=== PATIENT | male | born 1945 | race Hispanic/Latino ===

== ENCOUNTER 2018-05-05 06:29 | Emergency (ER) | payer MEDICARE ==
[~2018-05-05] VITALS: Ht 157.5 cm; Wt 60.8 kg
[~2018-05-05 06:29] MED LIST: ASA325 PO; ASPIRIN325 MG PO; LIPITOR20 MG PO; LIPITOR40 MG PO; LOTREL 5-20 MG1 EACH PO; LOTREL PO; NORCO 10-325 T1 EACH PO; NORCO 7.5-3251 EACH PO; PEPCID20 MG PO; PLAVIX PO; PLAVIX75 MG PO; TOPROL PO; TOPROL XL100 MG PO; XANAX PO; XANAX0.5 MG PO
--- OUTSIDE RECORDS SUMMARY | 2018-05-05 06:35 | XMS REPORT | Summary of Care ---
Author Author [facility] Organization [facility] Address Unknown Phone Unavailable Encounter KIARA Jiménez(ROCIO) [id number] Date(s): 01/05/15 - 01/06/15 [facility] [address] [place] [address]- Discharge Disposition: Home Attending Physician: Lavell Veras MD Admitting Physician: Lavell Veras MD Vital Signs 1 2 3 Most recent to oldest [Reference Range]: 157.48 cm (01/05/15 2:04 PM) Height 97.6 DegF (01/06/15 12:48 PM) 97.5 DegF (01/06/15 8:20 AM) 97.6 DegF (01/06/15 4:00 AM) Temperature Oral [96.4-99.1 DegF] 152/75 mmHg *HI* (01/06/15 12:48 PM) 154/76 mmHg *HI* (01/06/15 8:20 AM) 152/68 mmHg *HI* (01/06/15 4:00 AM) Blood Pressure [90-140/60-90 mmHg] 18 BRMIN (01/06/15 12:48 PM) 16 BRMIN (01/06/15 8:20 AM) 16 BRMIN (01/06/15 4:00 AM) Respiratory Rate [14-20 BRMIN] 51 bpm *LOW* (01/06/15 12:48 PM) 52 bpm *LOW* (01/06/15 8:20 AM) 53 bpm *LOW* (01/06/15 4:00 AM) Peripheral Pulse Rate [60-100 bpm] 60.455 kg (01/05/15 2:04 PM) Weight 24.38 m2 (01/05/15 2:04 PM) Body Mass Index Problem List Condition Effective Dates Status Health Status Informant Acid Active reflux(Confirmed) Acute Active abscess(Confirmed) CABG - Coronary Active artery bypass graft(Confirmed) CAD - Coronary Active artery disease(Confirmed) CAD - Coronary Resolved artery disease(Confirmed) Chest Active pain(Confirmed) Cholesterol(Confirme Resolved d) GERD - Resolved Gastro-esophageal reflux disease(Confirmed) HLD - Active Hyperlipidemia(Confi rmed) HTN - Active Hypertension(Confirm ed) HTN - Resolved Hypertension(Confirm ed) Hyperlipidemia(Confi Active rmed) Hypertension(Confirm Active ed) Hypertension(Confirm Resolved ed) OR (myocardial Resolved infarction)(Confirme d) Allergies, Adverse Reactions, Alerts Substance Reaction Severity Status NKDA Active Medications acetaminophen 650 mg, 2 tab, Route: PO, Drug form: TAB, Q4H, Dosing Weight 60.455, kg, PRN Jeanne n 1-3/Temp > 100.4 F, Start date: 01/05/15 18:50:00, Duration: 30 day, Stop date: 02/04/15 18:49:00 Notes: Do not exceed 4 gm/day. (Same as: Tylenol) Start Date: 01/05/15 Stop Date: 01/06/15 Status: Discontinued acetaminophen-hydrocodone 325 mg-5 mg oral tablet 1 tab, Route: PO, Drug Form: TAB, Dosing Weight 60.455, kg, Q4H, PRN Pain Score 4-6, Start date: 01/05/15 18:50:00, Duration: 30 day, Stop date: 02/04/15 18:49: 00 Notes: (Same as: [place] 325/5) Do not exceed 4gm/day of acetaminophen. Start Date: 01/05/15 Stop Date: 01/06/15 Status: Discontinued ALPRAZOLam 1 mg oral tablet, disintegrating 1 mg=1 tab, PO, TID, PRN Anxiety, X 14 day, # 42 tab, 0 Refill(s) Start Date: 01/06/15 Stop Date: 01/20/15 Status: Ordered amLODIPine-benazepril 5 mg-40 mg oral capsule 1 cap, PO, Daily, # 30 cap, 0 Refill(s) Start Date: 01/06/15 Status: Ordered amLODIPine-benazepril 5 mg-40 mg oral capsule 1 cap, Route: PO, Drug Form: CAP, Dosing Weight 60.455, kg, Daily, Start date: 1 9:00:00, Duration: 30 day, Stop date: 02/04/15 9:00:00 Start Date: 01/06/15 Stop Date: 01/06/15 Status: Deleted aspirin 81 mg tablet, enteric coated 81 mg, 1 tab, Route: PO, Drug form: ECTAB, Daily, Dosing Weight 60.455, kg, Star t date: 01/06/15 9:00:00, Duration: 30 day, Stop date: 02/04/15 9:00:00 Notes: Do not crush or chew.(Same As: Ecotrin) Start Date: 01/06/15 Stop Date: 01/06/15 Status: Discontinued aspirin 81 mg tablet, enteric coated 81 mg, 1 tab, Route: PO, Drug form: ECTAB, ONCE, Dosing Weight 60.455, kg, Prior ity: STAT, Start date: 01/05/15 16:51:00, Stop date: 01/05/15 16:51:00 Notes: Do not crush or chew.(Same As: Ecotrin) Start Date: 01/05/15 Stop Date: 01/05/15 Status: Completed atorvastatin 40 mg, 1 tab, Route: PO, Drug form: TAB, Bedtime, Dosing Weight 60.455, kg, Star t date: 01/06/15 21:00:00, Duration: 30 day, Stop date: 02/04/15 21:00:00 Notes: (Same as: Lipitor) Start Date: 01/06/15 Stop Date: 01/06/15 Status: Canceled atorvastatin 20 mg, PO, Bedtime, 0 Refill(s) Start Date: 01/06/15 Stop Date: 01/06/15 Status: Discontinued atorvastatin 40 mg oral tablet 40 mg=1 tab, PO, Bedtime, # 30 tab, 0 Refill(s) Start Date: 01/06/15 Stop Date: 02/05/15 Status: Ordered atropine 0.5 mg, 5 mL, Route: IVP, Drug form: INJ, PRN, PRN Bradycardia, Start date: 12/16 05/01 19:07:00, Duration: 30 day, Stop date: 02/04/15 18:06:00 Start Date: 01/05/15 Stop Date: 01/06/15 Status: Discontinued docusate 100 mg, 1 cap, Route: PO, Drug form: CAP, BID, Dosing Weight 60.455, kg, PRN Con stipation, Start date: 01/05/15 18:50:00, Duration: 30 day, Stop date: 02/04/15 18:49:00 Notes: (Same as: Colace) (Do Not Crush) Start Date: 01/05/15 Stop Date: 01/06/15 Status: Discontinued enoxaparin 40 mg, 0.4 mL, Route: SUB-Q, Drug form: INJ, [id number], Dosing Weight 60.455, kg, Start date: 01/05/15 17:00:00, Duration: 30 day, Stop date: 02/03/15 17:00:00 Notes: (Same as: Lovenox) Start Date: 01/05/15 Stop Date: 01/06/15 Status: Discontinued ergocalciferol 50,000 IntlUnit, 1 cap, Route: PO, Drug form: CAP, Daily, Dosing Weight 60.455, kg, Start date: 01/06/15 9:00:00, Duration: 3 day, Stop date: 01/08/15 9:00:00 Notes: (Same as: Vitamin D) "Do Not Crush" Start Date: 01/06/15 Stop Date: 01/06/15 Status: Discontinued hydrALAZINE 10 mg, 0.5 mL, Route: IV, Drug form: INJ, Q4H, Dosing Weight 60.455, kg, PRN Hyp ertension, Start date: 01/05/15 23:10:00, Duration: 30 day, Stop date: 02/04/15 23:09:00 Notes: (Same as: Apresoline)Push over 5 minutes Start Date: 01/05/15 Stop Date: 01/06/15 Status: Discontinued metoprolol 5 mg/5 ml INJ 5 mg, 5 mL, Route: IV, Drug form: INJ, Q2H, Dosing Weight 60.455, kg, PRN Tachyc ardia, Start date: 01/05/15 23:10:00, Duration: 30 day, Stop date: 02/04/15 23:0 9:00 Notes: (Same as: Lopressor)Push over 2 minutes Start Date: 01/05/15 Stop Date: 01/06/15 Status: Discontinued morphine Sulfate 2 mg, 1 mL, Route: IVP, Drug form: INJ, Q4H, Dosing Weight 60.455, kg, PRN Pain Score 7-10, Start date: 01/05/15 18:50:00, Duration: 30 day, Stop date: 02/04/15 18:49:00 Notes: (Same as:MORPhine Sulfate) Start Date: 01/05/15 Stop Date: 01/06/15 Status: Discontinued nitroglycerin 0.4 mg sublingual tablet 0.4 mg, 1 tab, Route: SL, Drug form: TAB, Q5Min, PRN Chest Pain, Start date: 19:07:00, Duration: 30 day, Stop date: 02/04/15 18:06:00 Notes: (Same as:Nitroquick, Nitrostat)"Do Not Crush" Sublingual tablet Start Date: 01/05/15 Stop Date: 01/06/15 Status: Discontinued Nitrostat 0.4 mg sublingual tablet 0.4 mg, 1 tab, Route: SL, Drug form: TAB, Q5Min, Dosing Weight 60.455, kg, PRN C hest Pain, Start date: 01/05/15 23:10:00, Duration: 3 doses or times, Stop date: Limited # of times Notes: (Same as:Nitroquick, Nitrostat)"Do Not Crush" Sublingual tablet Start Date: 01/05/15 Stop Date: 01/06/15 Status: Discontinued Norvasc 5 mg, 1 tab, Route: PO, Drug form: TAB, Daily, Start date: 01/06/15 9:00:00, Dur ation: 30 day, Stop date: 02/04/15 9:00:00 Notes: (Same as: Norvasc) Start Date: 01/06/15 Stop Date: 01/06/15 Status: Discontinued ondansetron 4 mg, 2 mL, Route: IVP, Drug form: INJ, Q6H, Dosing Weight 60.455, kg, PRN Nause a & Vomiting, Start date: 01/05/15 18:50:00, Duration: 30 day, Stop date: 02/04/15 18:49:00 Notes: (Same as: [place]) MEDICATION WASTE Product Size: 4 mgProduct Was janay: ___ mg Start Date: 01/05/15 Stop Date: 01/06/15 Status: Discontinued Prinivil 40 mg, 2 tab, Route: PO, Drug form: TAB, Daily, Start date: 01/06/15 9:00:00, Du ration: 30 day, Stop date: 02/04/15 9:00:00 Notes: (Same as: Prinivil, Zestril) Start Date: 01/06/15 Stop Date: 01/06/15 Status: Discontinued Protonix 40 mg, 1 tab, Route: PO, Drug form: ECTAB, Before Dinner, Dosing Weight 60.455, kg, Start date: 01/06/15 16:30:00, Duration: 30 day, Stop date: 02/04/15 16:30:0 0 Notes: Tablet should not be chewed or crushed.(Same as: Protonix) Start Date: 01/06/15 Stop Date: 01/06/15 Status: Discontinued Saline Flush 0.9% 10 mL, Route: IVP, Drug Form: INJ, Dosing Weight 60.455, kg, PRN, PRN Line Flush , Start date: 01/05/15 14:13:00, Duration: 30 day, Stop date: 02/04/15 13:12:00 Notes: (Same as: BD Posiflush) Start Date: 01/05/15 Stop Date: 01/05/15 Status: Discontinued Toprol-XL 100 mg oral tablet, extended release 100 mg, 1 tab, Route: PO, Drug form: ERTAB, Daily, Start date: 01/06/15 9:00:00, Duration: 30 day, Stop date: 02/04/15 9:00:00 Notes: (Same as: Toprol XL) May split tab, but do not crush. Start Date: 01/06/15 Stop Date: 01/06/15 Status: Discontinued Xanax 0.5 mg oral tablet 0.5 mg, 1 tab, Route: PO, Drug form: TAB, TID, Dosing Weight 60.455, kg, PRN Anx iety, Start date: 01/06/15 8:09:00, Duration: 30 day, Stop date: 02/05/15 8:08:0 0 Notes: With food or milk(Same as: Xanax) Start Date: 01/06/15 Stop Date: 01/06/15 Status: Discontinued Results ELECTROLYTES Most recent to 1 2 3 4 oldest [Reference Range]: Sodium Lvl [135-145 140 mEq/L 139 mEq/L mEq/L] (01/06/15 4:20 AM) (01/05/15 2:17 PM) Potassium Lvl 4.0 mEq/L 3.8 mEq/L [3.5-5.1 mEq/L] (01/06/15 4:20 AM) (01/05/15 2:17 PM) Chloride Lvl [95-109 104 mEq/L 102 mEq/L mEq/L] (01/06/15 4:20 AM) (01/05/15 2:17 PM) CO2 [24-32 mEq/L] 30 mEq/L 31 mEq/L (01/06/15 4:20 AM) (01/05/15 2:17 PM) AGAP [10.0-20.0 10.0 mEq/L 9.8 mEq/L mEq/L] (01/06/15 4:20 AM) *LOW* (01/05/15 2: PM) CHEM PANEL Most recent to 1 2 3 4 oldest [Reference Range]: Creatinine Lvl 1.0 mg/dL 1.1 mg/dL [0.5-1.4 mg/dL] (01/06/15 4:20 AM) (01/05/15 2:17 PM) eGFR 76 mL/min/1.73m2 1 68 mL/min/1.73m2 2 *NA* *NA* (01/06/15 4:20 AM) (01/05/15 2:17 PM) BUN [7-22 mg/dL] 13 mg/dL 13 mg/dL (01/06/15 4:20 AM) (01/05/15 2:17 PM) B/C Ratio [6-25] 12 (01/05/15 2:17 PM) Glucose Lvl [70-99 102 mg/dL 145 mg/dL mg/dL] *HI* *HI* (01/06/15 4:20 AM) (01/05/15 2:17 PM) Uric Acid [3.8-8.0 5.4 mg/dL mg/dL] (01/06/15 4:20 AM) Total Protein 7.1 g/dL 7.9 g/dL [6.4-8.4 g/dL] (01/06/15 4:20 AM) (01/05/15 2:17 PM) Albumin Lvl [3.5-5.0 3.5 g/dL 4.1 g/dL g/dL] (01/06/15 4:20 AM) (01/05/15 2:17 PM) Globulin [2.0-4.0 3.6 g/dL 3.8 g/dL g/dL] (01/06/15 4:20 AM) (01/05/15 2: PM) A/G Ratio [0.7-1.6] 1.0 1.1 (01/06/15 4:20 AM) (01/05/15 2:17 PM) Calcium Lvl 9.1 mg/dL 9.1 mg/dL [8.5-10.5 mg/dL] (01/06/15 4:20 AM) (01/05/15 2:17 PM) Phosphorus [2.5-4.5 3.8 mg/dL 3.1 mg/dL mg/dL] (01/06/15 4:20 AM) (01/05/15 2:17 PM) Magnesium Lvl 2.1 mg/dL 2.2 mg/dL [1.8-2.4 mg/dL] (01/06/15 4:20 AM) (01/05/15 2:17 PM) ALT [0-65 unit/L] 27 unit/L 27 unit/L (01/06/15 4:20 AM) (01/05/15 2:17 PM) AST [0-37 unit/L] 18 unit/L 20 unit/L (01/06/15 4:20 AM) (01/05/15 2:17 PM) Alk Phos [39-136 117 unit/L 136 unit/L unit/L] (01/06/15 4:20 AM) (01/05/15 2:17 PM) Bili Total [0.2-1.3 0.6 mg/dL 0.7 mg/dL mg/dL] (01/06/15 4:20 AM) (01/05/15 2:17 PM) Bili Direct [0.0-0.3 0.1 mg/dL mg/dL] (01/06/15 4:20 AM) Bili Indirect 0.5 mg/dL [0.0-1.0 mg/dL] (01/06/15 4:20 AM) Vitamin D, 25-OH, 18 ng/mL Total [30-100 ng/mL] *LOW* (01/06/15 4:20 AM) 1Result Comment: The eGFR is calculated using the CKD-EPI formula. In most young, healthy individuals the eGFR will be >90 mL/min/1.73m2. The eGFR declines with age. An eGFR of 60-89 may be normal in some populations, particularly the elderly, for whom the CKD-EPI formula has not been extensively validated. Use of the eGFR is not recommended in the following populations: Individuals with unstable creatinine concentrations, including patients and those with serious co-morbid conditions. Patients with extremes in muscle mass or diet. The data above are obtained from the National Kidney Disease Education Program ( NKDEP) which additionally recommends that when the eGFR is used in patients with extremes of body mass index for purposes of drug dosing, the eGFR should be mul tiplied by the estimated BMI. 2Result Comment: The eGFR is calculated using the CKD-EPI formula. In most young, healthy individuals the eGFR will be >90 mL/min/1.73m2. The eGFR declines with age. An eGFR of 60-89 may be normal in some populations, particularly the elderly, for whom the CKD-EPI formula has not been extensively validated. Use of the eGFR is not recommended in the following populations: Individuals with unstable creatinine concentrations, including patients and those with serious co-morbid conditions. Patients with extremes in muscle mass or diet. The data above are obtained from the National Kidney Disease Education Program ( NKDEP) which additionally recommends that when the eGFR is used in patients with extremes of body mass index for purposes of drug dosing, the eGFR should be mul tiplied by the estimated BMI. CARDIAC ENZYMES Most recent to 1 2 3 4 oldest [Reference Range]: Total CK [12-191 75 unit/L 88 unit/L 106 unit/L 112 unit/L unit/L] (01/06/15 7:33 AM) (01/05/15 10:46 PM) (01/05/15 2:17 PM) (01/05/15 2:17 PM) CK MB [0.5-3.6 1.8 ng/mL 2.2 ng/mL 2.4 ng/mL 2.3 ng/mL ng/mL] (01/06/15 7:33 AM) (01/05/15 10:46 PM) (01/05/15 2:17 PM) (01/05/15 2:17 PM) CK MB Index 2.4 2.5 2.3 2.1 [0.0-2.5] (01/06/15 7:33 AM) (01/05/15 10:46 PM) (01/05/15 2:17 PM) (01/05/15 2:17 PM) Troponin-I <0.02 ng/mL <0.02 ng/mL <0.02 ng/mL [0.00-0.40 ng/mL] (01/06/15 7:33 AM) (01/05/15 10:46 PM) (01/05/15 2:17 PM) BNP [<=100 pg/mL] 117 pg/mL *HI* (01/06/15 4:20 AM) LIPIDS Most recent to 1 2 3 4 oldest [Reference Range]: CHD Risk [4.00-7.30] 4.33 (01/06/15 4:20 AM) Chol [<=199 mg/dL] 199 mg/dL (01/06/15 4:20 AM) Trig [<=149 mg/dL] 159 mg/dL *HI* (01/06/15 4:20 AM) HDL [>=61 mg/dL] 46 mg/dL *LOW* (01/06/15 4:20 AM) LDL (Calculated) 121 mg/dL [<=99 mg/dL] *HI* (01/06/15 4:20 AM) VLDL 32 *NA* (01/06/15 4:20 AM) SPECIAL CHEMISTRY Most recent to 1 2 3 4 oldest [Reference Range]: Hgb A1C [<=5.6 %] 5.8 % *HI* (01/05/15 2:17 PM) THYROID PANEL Most recent to 1 2 3 4 oldest [Reference Range]: T3 Uptake [31-39 %] 40 % *HI* (01/06/15 4:20 AM) T4 [4.7-13.3 ug/dl] 8.0 ug/dl (01/06/15 4:20 AM) FTI 3.2 *NA* (01/06/15 4:20 AM) TSH [0.360-3.740 1.130 uIU/mL uIU/mL] (01/06/15 4:20 AM) URINE AND STOOL Most recent to 1 2 3 4 oldest [Reference Range]: UA Turbidity [Clear] Marked *ABN* (01/06/15 4:39 AM) UA Color Ltyellow *NA* (01/06/15 4:39 AM) UA pH [5.0-8.0] 7.0 (01/06/15 4:39 AM) UA Spec Grav 1.011 [<=1.030] (01/06/15 4:39 AM) UA Glucose [Negative 50 mg/dL mg/dL] *ABN* (01/06/15 4:39 AM) UA Blood [Negative] Negative (01/06/15 4:39 AM) UA Ketones [Negative Negative mg/dL mg/dL] *NA* (01/06/15 4:39 AM) UA Protein [Negative Negative mg/dL mg/dL] (01/06/15 4:39 AM) UA Urobilinogen <=1.0 mg/dL [0.1-1.0 mg/dL] *NA* (01/06/15 4:39 AM) UA Bili [Negative] Negative *NA* (01/06/15 4:39 AM) UA Leuk Est Trace [Negative] *ABN* (01/06/15 4:39 AM) UA Nitrite Negative [Negative] (01/06/15 4:39 AM) UA WBC [0-5 /HPF] 5 /HPF (01/06/15 4:39 AM) UA RBC [0-2 /HPF] 1 /HPF (01/06/15 4:39 AM) UA Bacteria [None Occasional /HPF Seen /HPF] *NA* (01/06/15 4:39 AM) UA Sq Epi [Few /LPF] Occasional /LPF *NA* (01/06/15 4:39 AM) IMMUNOLOGY Most recent to 1 2 3 4 oldest [Reference Range]: Homocyst Tot 10.2 uMol/L [3.7-13.9 uMol/L] (01/06/15 4:20 AM) HEMATOLOGY Most recent to 1 2 3 4 oldest [Reference Range]: WBC [3.7-10.4 K/CMM] 4.0 K/CMM 7.8 K/CMM (01/06/15 4:20 AM) (01/05/15: PM) RBC [4.70-6.10 4.65 M/CMM 5.00 M/CMM M/CMM] *LOW* (01/05/15 2: PM) (01/06/15 4:20 AM) Hgb [14.0-18.0 g/dL] 14.3 g/dL 15.3 g/dL (01/06/15 4:20 AM) (01/05/15 2: PM) Hct [42.0-54.0 %] 42.4 % 45.7 % (01/06/15 4:20 AM) (01/05/15: PM) MCV [80.0-94.0 fL] 91.3 fL 91.5 fL (01/06/15 4:20 AM) (01/05/15: PM) MCH [27.0-31.0 pg] 30.8 pg 30.5 pg (01/06/15 4:20 AM) (01/05/15 2: PM) MCHC [32.0-36.0 33.7 g/dL 33.4 g/dL g/dL] (01/06/15 4:20 AM) (01/05/15 2: PM) RDW [11.5-14.5 %] 13.4 % 13.3 % (01/06/15 4:20 AM) (01/05/15: PM) Platelet [133-450 120 K/CMM 134 K/CMM K/CMM] *LOW* (01/05/15 2:17 PM) (01/06/15 4:20 AM) MPV [7.4-10.4 fL] 10.7 fL 10.0 fL *HI* (01/05/15 2:17 PM) (01/06/15 4:20 AM) Segs [45.0-75.0 %] 53.8 % 72.6 % (01/06/15 4:20 AM) (01/05/15 2:17 PM) Lymphocytes 29.9 % 16.9 % [20.0-40.0 %] (01/06/15 4:20 AM) *LOW* (01/05/15:17 PM) Monocytes [2.0-12.0 11.0 % 7.4 % %] (01/06/15 4:20 AM) (01/05/15 2:17 PM) Eosinophils [0.0-4.0 4.8 % 2.3 % %] *HI* (01/05/15 2:17 PM) (01/06/15 4:20 AM) Basophils [0.0-1.0 0.5 % 0.8 % %] (01/06/15 4:20 AM) (01/05/15 2:17 PM) Segs-Bands # 2.2 K/CMM 5.7 K/CMM [1.5-8.1 K/CMM] (01/06/15 4:20 AM) (01/05/15 2:17 PM) Lymphocytes # 1.2 K/CMM 1.3 K/CMM [1.0-5.5 K/CMM] (01/06/15 4:20 AM) (01/05/15 2:17 PM) Monocytes # [0.0-0.8 0.4 K/CMM 0.6 K/CMM K/CMM] (01/06/15 4:20 AM) (01/05/15 2:17 PM) Eosinophils # 0.2 K/CMM 0.2 K/CMM [0.0-0.5 K/CMM] (01/06/15 4:20 AM) (01/05/15 2:17 PM) Basophils # [0.0-0.2 0.1 K/CMM K/CMM] (01/05/15 2:17 PM) PT [12.0-14.7 13.6 seconds seconds] (01/05/15 2:17 PM) INR [0.85-1.17] 1.01 (01/05/15 2:17 PM) PTT [22.9-35.8 30.6 seconds seconds] (01/05/15 2:17 PM) Immunizations No data available for this section Procedures Procedure Date Related Diagnosis Body Site PTCA - Percutaneous transluminal coronary 07/29/12 angioplasty CABG x 4 - Coronary artery bypass grafts x 4 04/30/99 Cervical and thoracic spine operations Hip joint implantation Social History Social History Type Response Substance Abuse IV drug use: No. Drug use interferes with work/home: No. Ready to change: No. Household substance abuse concerns: No. Sexual Sexually active: No. Exercise Exercise type: Walking. Employment/School Work/School description: retired. Alcohol Alcohol use interferes with work or home: No. Drinks more than intended: No. Others hurt by drinking: No. Ready to change: No. Household alcohol concerns: No. Smoking Status Former smoker; Exposed at work; Cigarette Smoking Last 365 Days No; Reg Smoking Cessation Counseling No1 1quit 15 years ago Assessment and Plan Extracted from: Title: Clinical Document Author: Deb Black Date: 01/06/15 MARIA G Internal Medicine Progress Note [facility] SUBJECTIVE No acute events. Pt denies JOHNSON, dizziness, dysphagia, neck stiffness, CP, SOB, hemoptysis, N/V/D/C, hematemesis, hematochezia, hematuria, dysuria, skin rash. Pt reports he still has some neck and shoulder pain, but decreased. CP resolved. OBJECTIVE Vital Signs (last 24 hrs) Last Charted Temp Oral97.6 DegF (JAN 06 12:48) Heart Rate PeripheralL 51bpm (JAN 06 12:48) Resp Rate 18 BRMIN (JAN 06 12:48) SBPH 152mmHg (JAN 06 12:48) DBP75 mmHg (JAN 06 12:48) Hnpwzw90.455 kg (JAN 05:) Jqldvy204.48 cm (JAN 05 14:04) BMI24.38 (JAN 05 14:) Labs (Last four charted values) WBC 4.0(JAN 06)7.8(JAN 05) Hgb 14.3(JAN 06)15.3(JAN 05) Hct 42.4(JAN 06)45.7(JAN 05) Plt L 120(JAN 06)134(JAN 05) Na 140(JAN 06)139(JAN 05) K 4.0(JAN 06)3.8(JAN 05) CO2 30(JAN 06)31(JAN 05) Cl 104(JAN 06)102(JAN 05) Cr 1.0(JAN 06)1.1(JAN 05) BUN 13(JAN 06)13(JAN 05) Glucose Random H 102(JAN 06)H 145(JAN 05) Mg 2.1(JAN 06)2.2(JAN 05) Phos 3.8(JAN 06)3.1(JAN 05) Ca 9.1(JAN 06)9.1(JAN 05) PT 13.6(JAN 05) INR 1.01(JAN 05) PTT 30.6(JAN 05) Troponin <0.02(JAN 06)<0.02(JAN 05)<0.02(JAN 05) CK MB 1.8(JAN 06)2.2(JAN 05)2.3(JAN 05)2.4(JAN 05) Total CK 75(JAN 06)88(JAN 05)112(JAN 05)106(JAN 05) Medications (20) Active Scheduled Meds (8): 01/06/15 amLODIPine (Norvasc) 5 mg PO Daily 01/06/15 aspirin (aspirin 81 mg tablet, enteric coated) 81 mg PO Daily 01/06/15 atorvastatin 40 mg PO Bedtime 01/05/15 enoxaparin 40 mg SUB-Q [id number] 01/06/15 ergocalciferol 50,000 IntlUnit PO Daily 01/06/15 lisinopril (Prinivil) 40 mg PO Daily 01/06/15 metoprolol (Toprol-XL 100 mg oral tablet, extended release) 100 mg PO Daily 01/06/15 pantoprazole (Protonix) 40 mg PO Before Dinner Unscheduled Meds: None PRN Meds (11): 01/06/15 ALPRAZolam (Xanax 0.5 mg oral tablet) 0.5 mg PO TID 01/05/15 acetaminophen-hydrocodone (acetaminophen-hydrocodone 325 mg-5 mg oral tablet) 1 tab PO Q4H 01/05/15 acetaminophen 650 mg PO Q4H 01/05/15 atropine 0.5 mg IVP PRN 01/05/15 docusate 100 mg PO BID 01/05/15 hydrALAZINE 10 mg IV Q4H 01/05/15 metoprolol (metoprolol 5 mg/5 ml INJ) 5 mg IV Q2H 01/05/15 morphine Sulfate 2 mg IVP Q4H 01/05/15 nitroglycerin (nitroglycerin 0.4 mg sublingual tablet) 0.4 mg SL Q5Min 01/05/15 nitroglycerin (Nitrostat 0.4 mg sublingual tablet) 0.4 mg SL Q5Min 01/05/15 ondansetron 4 mg IVP Q6H One Time Meds (1): 01/05/15 (Completed) aspirin (aspirin 81 mg tablet, enteric coated) 81 mg PO ONCE Continuous Infusions: None Physical Exam Gen: Pt resting comfortably, A&Ox3, NAD HEENT: PERRLA, EOMI, normocephalic, atraumatic, no thyromegaly, no neck stiffness Chest: RRR, no M/R/G, CTAB, no rhonchi wheezes or rales Abd: Bowel sounds present in 4 quads, soft, ND, NTTP Ext: No cyanosis or edema Skin: No rash noted ASSESSMENT & PLAN 1. Chest pain. 2. Hypertension 3. Coronary artery disease. 4. Hyperlipidemia. 5. 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 EF has significantly decreased since most recent TTE about 2yrs ago. Defer decision to d/c to cardio.
--- OUTSIDE RECORDS SUMMARY | 2018-05-05 06:35 | XMS REPORT ---
Author Author Lidia Coleman [facility] eClinicalWorks Address Unknown Phone Unavailable Care Team Providers Care Elementary Reading Specialist Name Role Phone Lidia Coleman Unavailable Allergies, Adverse Reactions, Alerts Substance Reaction Event Type N.K.D.A. Info Not Available Non Drug Allergy Problems Problem Type Condition Code Onset Dates Condition Status Assessment Pure hypercholesterolemia E78.00 Active Problem HTN (hypertension) I10 Active Assessment Acute cystitis without hematuria N30.00 Active Problem H/O heart artery stent Z95.5 Mar 18, 2011 Active Assessment CAD (coronary artery disease) I25.10 Active Problem CAD (coronary artery disease) I25.10 Active Problem Status post fall Z91.81 Active Problem Recurrent UTI N39.0 Active Problem Seasonal allergic rhinitis due to pollen J30.1 Active Problem Chronic frontal sinusitis J32.1 Active Problem Coronary atherosclerosis of [place] coronary artery I25.10 Active Assessment Essential (primary) hypertension I10 Active Problem Angina at rest I20.8 Active Assessment Adjustment disorder with mixed anxiety and depressed mood F43.23 Active Problem Erectile dysfunction, unspecified erectile dysfunction type N52.9 Active Problem Left hip pain M25.552 Active Problem Acute tracheobronchitis J20.9 Active Problem Anxiety F41.9 Active Problem Adjustment disorder with mixed anxiety and depressed mood F43.23 Active Problem Essential (primary) hypertension I10 Active Problem Erectile dysfunction due to arterial insufficiency N52.01 Active Problem chronic back pain 355.9 Active Problem Peripheral neuropathy G62.9 Active Problem Carotid stenosis, left I65.22 Active Problem Insomnia G47.00 Active Problem BPH (benign prostatic hyperplasia) N40.0 Active Medications Medication Code System Code Instructions Start Date End Date Status Dosage Amlodipine Besylate [facility] [address]-74 10 mg Orally Once a day Active 1 tablet Atorvastatin Calcium [facility] [address]-65 40 MG Orally Once a day June 26, 2016 Active 1 tablet Flonase ND 07123319145 50 MCG/ACT Nasally Once a day Active 1 [place] [address]-50 75 mg Orally Once a day June 30, 2015 Active 1 tablet Losartan Potassium [facility] [address]-03 50 MG Orally Once a day Feb 20, 2016 Active 1 tablet Aspirin [facility] 03602-[address]90 81 MG Orally Once a day Active 1 tablet Metoprolol Succinate ER [facility] 13053904759 100 Active TAKE 1 TABLET BY MOUTH EVERY DAY Baclofen [facility] [address]-39 10 MG Orally twice a day (bid) Mar 21, 2016 Active 1 tablet with food or milk Amlodipine Besylate [facility] 07919687498 10 Active TAKE 1 TABLET BY MOUTH EVERY DAY Xanax [facility] [address]-10 0.5 MG Orally Three times a day Active 1 tablet Metoprolol Succinate ER [facility] [address]-87 100 mg Orally Once a day Active 1 tablet Vital Signs Date/Time: June 26, 2016 BMI 24.14 Index Weight 132 lbs Height 62 in Temperature 98.0 F Blood Pressure Diastolic 93 mm Hg Blood Pressure Systolic 155 mm Hg Results No Known Results Summary Purpose eClinicalWorks Submission
--- OUTSIDE RECORDS SUMMARY | 2018-05-05 06:35 | XMS REPORT | CCD ---
Author Author Auto Generated Organization [facility] Address Unknown Phone Unavailable Care Team Providers Care Data Support Specialist Name Role Phone Allen Murphy V CP Allergies, Adverse Reactions, Alerts Substance Reaction Status NKDA Active Problem List Condition Effective Dates Status Acid reflux Active CABG - Coronary artery bypass graft Active CAD - Coronary artery disease Active Chest pain Active HLD - Hyperlipidemia Active HTN - Hypertension Active Medications Medication Instructions Start Date End Date Status Lipitor 20 mg, 2 tab, Route: PO, Drug form: 07/22/2011 07/22/2011 Discontinued TAB, Bedtime, Start date: 07/22/11 21:00:00, Duration: 30 day, Stop date: 08/20/11 21:00:00 Nexium 40 mg, Route: PO, Drug form: [facility], 07/22/2011 07/21/2011 Deleted Before Dinner, Start date: 07/22/11 16:30:00, Duration: 30 day, Stop date: 08/20/11 16:30:00 Toprol-XL 100 mg 100 mg, 1 tab, Route: PO, Drug 07/21/2011 07/22/2011 Discontinued oral tablet, form: ERTAB, Daily, Start date: extended release 07/21/11 22:23:00, Duration: 30 day, Stop date: 08/20/11 9:00:00 Plavix 75 mg, 1 tab, Route: PO, Drug form: 07/22/2011 07/22/2011 Discontinued TAB, Daily, Start date: 07/22/11 9:00:00, Duration: 30 day, Stop date: 08/20/11 9:00:00 aspirin 81 mg 81 mg, 1 tab, Route: PO, Drug form: 07/22/2011 07/22/2011 Discontinued tablet, enteric ECTAB, Daily, Start date: 07/22/11 coated 9:00:00, Duration: 30 day, Stop date: 08/20/11 9:00:00 Lotrel 10 mg-20 mg 1 cap, Route: PO, Drug Form: CAP, 07/22/2011 07/21/2011 Deleted oral capsule Daily, Start date: 07/22/11 9:00:00, Duration: 30 day, Stop date: 08/20/11 9:00:00 Xanax 0.5 mg oral 0.5 mg, 1 tab, Route: PO, Drug 07/21/2011 07/22/2011 Discontinued tablet form: TAB, TID, PRN as needed for anxiety, Start date: 07/21/11 22:08:00, Duration: 30 day, Stop date: 08/20/11 22:07:00 aspirin 325 mg 325 mg, Route: PO, Drug form: TAB, 07/21/2011 07/21/2011 Completed tablet ONCE, Priority: STAT, Start date: 07/21/11 21:07:00, Stop date: 07/21/11 21:07:00 Saline Flush 0.9% 5 ml, Route: IVP, Drug Form: INJ, 07/22/2011 07/22/2011 Discontinued Q12H, Start date: 07/22/11 9:00:00, Duration: 30 day, Stop date: 08/20/11 21:00:00 Saline Flush 0.9% 5 ml, Route: IVP, Drug Form: INJ, 07/21/2011 07/22/2011 Discontinued PRN, PRN Line Flush, Start date: 07/21/11 21:41:00, Duration: 30 day, Stop date: 08/20/11 21:40:00 nitroglycerin SL Tab 0.4 mg, 1 tab, Route: SL, Drug 07/21/2011 07/22/2011 Discontinued form: TAB, Q5Min, PRN Chest Pain, Start date: 07/21/11 21:41:00, Duration: 3 doses or times, Stop date: Limited # of times nitroglycerin 2% 0.5 inch, Route: TOP, Drug Form: 07/22/2011 07/22/2011 Discontinued ointment OINT, TID, Start date: 07/22/11 6:00:00, Duration: 30 day, Stop date: 08/20/11 18:00:00 aspirin 325 mg 325 mg, 1 tab, Route: PO, Drug 07/22/2011 07/21/2011 Discontinued tablet form: TAB, Daily, Start date: 07/22/11 9:00:00, Duration: 30 day, Stop date: 08/20/11 9:00:00 aspirin 325 mg 325 mg, 1 tab, Route: PO, Drug 07/21/2011 07/21/2011 Completed tablet form: TAB, ONCE, Priority: STAT, Start date: 07/21/11 18:36:00, Stop date: 07/21/11 18:36:00 Saline Flush 0.9% 5 ml, Route: IVP, Drug Form: INJ, 07/21/2011 07/21/2011 Discontinued PRN, PRN Line Flush, Start date: 07/21/11 18:36:00, Duration: 24 hr, Stop date: 07/22/11 18:35:00 nitroglycerin 0.4 mg 0.4 mg, 1 tab, Route: SL, Drug 07/21/2011 07/22/2011 Discontinued sublingual tablet form: TAB, Q5Min, PRN Chest Pain, Start date: 07/21/11 22:01:00, Duration: 30 day, Stop date: 08/20/11 22:00:00 atropine 0.5 mg, 5 mL, Route: IVP, Drug 07/21/2011 07/22/2011 Discontinued form: INJ, PRN, PRN Bradycardia, Start date: 07/21/11 22:00:00, Duration: 30 day, Stop date: 08/20/11 21:59:00 amoxicillin 250 mg/5 1,556.825 mg, 31.137 mL, PO, TID, 07/21/2011 07/21/2011 Completed mL oral liquid 654 mL, Substitution Allowed, PDR/REC acetaminophen 120 720 mg, 30 mL, PO, Q4H, 300 mL, 07/21/2011 07/21/2011 Completed mg/5 mL oral liquid Substitution Allowed ibuprofen 100 mg/5 622.73 mg, 31.137 mL, PO, Q6H, PRN, 07/21/2011 07/21/2011 Completed mL oral suspension 300 mL, Fever, Substitution Allowed Protonix 40 mg, 1 tab, Route: PO, Drug form: 07/22/2011 07/22/2011 Discontinued ECTAB, Before Dinner, Start date: 07/22/11 16:30:00, Duration: 30 day, Stop date: 08/20/11 16:30:00 Prinivil 20 mg, 1 tab, Route: PO, Drug form: 07/22/2011 07/22/2011 Discontinued TAB, Daily, Start date: 07/22/11 9:00:00, Duration: 30 day, Stop date: 08/20/11 9:00:00 Norvasc 10 mg, 2 tab, Route: PO, Drug form: 07/22/2011 07/22/2011 Discontinued TAB, Daily, Start date: 07/22/11 9:00:00, Duration: 30 day, Stop date: 08/20/11 9:00:00 Vital Signs Most recent to oldest [Reference Range]: 1 2 3 Height 157.48 cm (07/21/2011 18:20:00) Temperature Oral [96.4-99.1 DegF] 97.8 DegF (07/22/2011 20:00:00) 98.0 DegF (07/22/2011 16:00:00) 97.7 DegF (07/22/2011 12:00:00) Systolic Blood Pressure [90-140 mmHg] 155 mmHg *HI* (07/22/2011 20:00:00) 132 mmHg (07/22/2011 16:00:00) 141 mmHg *HI* (07/22/2011 12:00:00) Diastolic Blood Pressure [60-90 mmHg] 70 mmHg (07/22/2011 20:00:00) 69 mmHg (07/22/2011 16:00:00) 69 mmHg (07/22/2011 12:00:00) Respiratory Rate [14-20 BRMIN] 16 BRMIN (07/22/2011 20:00:00) 18 BRMIN (07/22/2011 16:00:00) 18 BRMIN (07/22/2011 12:00:00) Peripheral Pulse Rate [60-100 bpm] 59 bpm *LOW* (07/22/2011 20:00:00) 57 bpm *LOW* (07/22/2011 16:00:00) 56 bpm *LOW* (07/22/2011 12:00:00) Weight 62.273 kg (07/21/2011 18:20:00) Results CHEMISTRY Most recent to oldest [Reference Range]: 1 2 3 Sodium Lvl [135-145 mEq/L] 142 mEq/L (07/22/2011 07:00:00) 143 mEq/L (07/21/2011 18:50:00) Potassium Lvl [3.5-5.1 mEq/L] 3.9 mEq/L (07/22/2011 07:00:00) 4.1 mEq/L (07/21/2011 18:50:00) Chloride Lvl [95-109 mEq/L] 109 mEq/L (07/22/2011 07:00:00) 110 mEq/L *HI* (07/21/2011 18:50:00) CO2 [24-32 mEq/L] 22 mEq/L *LOW* (07/22/2011 07:00:00) 24 mEq/L (07/21/2011 18:50:00) AGAP [10.0-20.0 mEq/L] 14.9 mEq/L (07/22/2011 07:00:00) 13.1 mEq/L (07/21/2011 18:50:00) Creatinine Lvl [0.5-1.4 mg/dL] 0.8 mg/dL (07/22/2011 07:00:00) 1.1 mg/dL (07/21/2011 18:50:00) BUN [7-22 mg/dL] 16 mg/dL (07/22/2011 07:00:00) 21 mg/dL (07/21/2011 18:50:00) B/C Ratio [6-25] 19 (07/21/2011 18:50:00) Glucose Lvl [70-99 mg/dL] 118 mg/dL 1 *HI* (07/22/2011 07:00:00) 106 mg/dL 2 *HI* (07/21/2011 18:50:00) Total Protein [6.4-8.4 g/dL] 7.6 g/dL (07/21/2011 18:50:00) Albumin Lvl [3.5-5.0 g/dL] 4.1 g/dL (07/21/2011 18:50:00) Globulin [2.0-4.0 g/dL] 3.5 g/dL (07/21/2011 18:50:00) A/G Ratio [0.7-1.6] 1.2 (07/21/2011 18:50:00) Calcium Lvl [8.5-10.5 mg/dL] 8.8 mg/dL (07/22/2011 07:00:00) 9.0 mg/dL (07/21/2011 18:50:00) ALT [0-65 U/L] 35 U/L (07/21/2011 18:50:00) AST [0-37 U/L] 21 U/L (07/21/2011 18:50:00) Alk Phos [39-136 U/L] 109 U/L (07/21/2011 18:50:00) Bili Total [0.2-1.3 mg/dL] 0.4 mg/dL (07/21/2011 18:50:00) Lipase Lvl [73-393 U/L] 275 U/L (07/21/2011 18:50:00) Total CK [12-191 U/L] 135 U/L (07/22/2011 07:00:00) 144 U/L (07/22/2011 01:22:00) 171 U/L (07/21/2011 18:50:00) CK MB [0.5-3.6 ng/mL] 2.1 ng/mL (07/22/2011 07:00:00) 2.0 ng/mL (07/22/2011 01:22:00) 1.9 ng/mL (07/21/2011 18:50:00) CK MB Index [0.0-2.5] 1.6 (07/22/2011 07:00:00) 1.4 (07/22/2011 01:22:00) 1.1 (07/21/2011 18:50:00) Troponin-I [0.00-0.40 ng/mL] <0.02 ng/mL (07/22/2011 07:00:00) <0.02 ng/mL (07/22/2011 01:22:00) <0.02 ng/mL (07/21/2011 18:50:00) BNP [<=100 pg/mL] 58 pg/mL 3 (07/21/2011 18:50:00) CHD Risk [4.00-7.30] 5.06 (07/22/2011 07:00:00) Chol [120-200 mg/dL] 182 mg/dL (07/22/2011 07:00:00) Trig [0-200 mg/dL] 169 mg/dL (07/22/2011 07:00:00) HDL [>=35 mg/dL] 36 mg/dL (07/22/2011 07:00:00) LDL [0-129 mg/dL] 112 mg/dL (07/22/2011 07:00:00) 1Interpretive Data: Adult reference range values reflect the clinical guidelinesof the [place] [employer]. 2Interpretive Data: Adult reference range values reflect the clinical guidelinesof the [place] [employer]. 3Interpretive Data: Elevated results are in line with increasing severity of congestive heart failure. Minor elevations between 100 and 300 may be seen with Myocardial Ischemia, Sodium retaining drugs, and compensated/treated heart failure. HEMATOLOGY Most recent to oldest [Reference Range]: 1 2 3 WBC [3.7-10.4 K/CMM] 4.0 K/CMM (07/22/2011 07:00:00) 4.0 K/CMM (07/21/2011 18:50:00) RBC [4.70-6.10 M/CMM] 4.43 M/CMM *LOW* (07/22/2011 07:00:00) 4.16 M/CMM *LOW* (07/21/2011 18:50:00) Hgb [14.0-18.0 g/dL] 13.7 g/dL *LOW* (07/22/2011 07:00:00) 12.9 g/dL *LOW* (07/21/2011 18:50:00) Hct [42.0-54.0 %] 40.5 % *LOW* (07/22/2011 07:00:00) 38.1 % *LOW* (07/21/2011 18:50:00) MCV [80.0-94.0 fL] 91.5 fL (07/22/2011 07:00:00) 91.6 fL (07/21/2011 18:50:00) MCH [27.0-31.0 pg] 31.0 pg (07/22/2011 07:00:00) 31.0 pg (07/21/2011 18:50:00) MCHC [32.0-36.0 g/dL] 33.9 g/dL (07/22/2011 07:00:00) 33.9 g/dL (07/21/2011 18:50:00) RDW [11.5-14.5 %] 12.7 % (07/22/2011 07:00:00) 12.5 % (07/21/2011 18:50:00) Platelet [133-450 K/CMM] 122 K/CMM *LOW* (07/22/2011 07:00:00) 116 K/CMM *LOW* (07/21/2011 18:50:00) MPV [7.4-10.4 fL] 10.1 fL (07/22/2011 07:00:00) 9.9 fL (07/21/2011 18:50:00) Segs [45.0-75.0 %] 64.0 % (07/22/2011 07:00:00) 55.4 % (07/21/2011 18:50:00) Lymphocytes [20.0-40.0 %] 23.0 % (07/22/2011 07:00:00) 28.2 % (07/21/2011 18:50:00) Monocytes [2.0-12.0 %] 8.4 % (07/22/2011 07:00:00) 11.5 % (07/21/2011 18:50:00) Eosinophils [0.0-4.0 %] 4.2 % *HI* (07/22/2011 07:00:00) 4.4 % *HI* (07/21/2011 18:50:00) Basophils [0.0-1.0 %] 0.4 % (07/22/2011 07:00:00) 0.5 % (07/21/2011 18:50:00) Segs-Bands # [1.5-8.1 K/CMM] 2.6 K/CMM (07/22/2011 07:00:00) 2.2 K/CMM (07/21/2011 18:50:00) Lymphocytes # [1.0-5.5 K/CMM] 0.9 K/CMM *LOW* (07/22/2011 07:00:00) 1.1 K/CMM (07/21/2011 18:50:00) Monocytes # [0.0-0.8 K/CMM] 0.3 K/CMM (07/22/2011 07:00:00) 0.5 K/CMM (07/21/2011 18:50:00) Eosinophils # [0.0-0.5 K/CMM] 0.2 K/CMM (07/22/2011 07:00:00) 0.2 K/CMM (07/21/2011 18:50:00) Basophils # [0.0-0.2 K/CMM] 0.0 K/CMM (07/22/2011 07:00:00) 0.0 K/CMM (07/21/2011 18:50:00) PT [12.0-14.7 seconds] 13.5 seconds (07/21/2011 18:50:00) INR [0.85-1.17] 1.03 4 (07/21/2011 18:50:00) PTT [22.9-35.8 seconds] 30.7 seconds 5 (07/21/2011 18:50:00) 4Interpretive Data: RECOMMENDED RANGES FOR PROTIME INR: 2.0-3.0 for most medical and surgical thromboembolic states. 2.5-3.5 for artificial heart valves and recurrent embolism.INR SHOULD BE USED ONLY FOR PATIENTS ON STABLE ANTICOAGULANT THERAPY. 5Interpretive Data: Heparin Therapeutic Range: 57 - 92 Seconds
--- OUTSIDE RECORDS SUMMARY | 2018-05-05 06:35 | XMS REPORT ---
Author Author Lidia Coleman [facility] [employer] Address Unknown Phone Unavailable Care Team Providers Care Fence Maker Name Role Phone Lidia Coleman CP Unavailable Allergies, Adverse Reactions, Alerts Substance Reaction Event Type N.K.D.A. Info Not Available Non Drug Allergy Problems Problem Type Condition Code Onset Dates Condition Status Assessment Gastroesophageal reflux disease without esophagitis K21.9 Active Problem CAD (coronary artery disease) I25.10 Active Assessment Persistent cough R05 Active Problem Recurrent UTI N39.0 Active Assessment Adjustment disorder with mixed anxiety and depressed mood F43.23 Active Problem Status post fall Z91.81 Active Problem Erectile dysfunction, unspecified erectile dysfunction type N52.9 Active Problem Left hip pain M25.552 Active Problem Angina at rest I20.8 Active Problem Benign non-nodular prostatic hyperplasia with lower urinary tract symptoms N40.1 Active Problem chronic back pain 355.9 Active Problem Erectile dysfunction due to arterial insufficiency N52.01 Active Problem Gastroesophageal reflux disease without esophagitis K21.9 Active Problem Coronary atherosclerosis of [place] coronary artery I25.10 Active Problem Acute tracheobronchitis J20.9 Active Problem Anxiety F41.9 Active Problem Seasonal allergic rhinitis due to pollen J30.1 Active Problem Chronic frontal sinusitis J32.1 Active Problem Insomnia G47.00 Active Problem BPH (benign prostatic hyperplasia) N40.0 Active Problem Adjustment disorder with mixed anxiety and depressed mood F43.23 Active Problem Essential (primary) hypertension I10 Active Problem HTN (hypertension) I10 Active Problem H/O heart artery stent Z95.5 Mar 18, 2011 Active Problem Peripheral neuropathy G62.9 Active Problem Carotid stenosis, left I65.22 Active Medications Medication Code System Code Instructions Start Date End Date Status Dosage Ciprofloxacin HCl [facility] [address]-31 500 MG Orally Twice a day Active 1 tablet Flonase [facility] 87660522235 50 MCG/ACT Nasally Once a day Active 1 spray in each nostril Amlodipine Besylate [facility] 76709631237 10 Active TAKE 1 TABLET BY MOUTH EVERY DAY Xanax NDC [address]-21 0.5 MG Orally Three times a day Active 1 tablet Metoprolol Succinate ER [facility] 74646704921 100 Active TAKE 1 TABLET BY MOUTH EVERY DAY Amlodipine Besylate [facility] [address]-63 10 mg Orally Once a day Active 1 tablet Losartan Potassium [facility] [address]-59 50 MG Orally Once a day Feb 20, 2016 Active 1 tablet Plavix [facility] [address]-58 75 mg Orally Once a day June 30, 2015 Active 1 tablet Fexofenadine HCl [facility] [address]-87 60 MG Orally daily August 05, 2016 Dec 03, 2016 Active 1 tablet as needed Pantoprazole Sodium [facility] [address]-45 40 MG Orally Once a day August 05, 2016 Active 1 tablet Baclofen [facility] [address]-43 10 MG Orally twice a day (bid) Mar 21, 2016 Active 1 tablet with food or milk Aspirin [facility] [address]77-[address]647 81 MG Orally Once a day Active 1 tablet Tamsulosin HCl [facility] 43264659054 0.4 MG Orally Once a day Active 1 capsule Atorvastatin Calcium [facility] [address]-03 40 MG Orally Once a day June 26, 2016 Active 1 tablet Metoprolol Succinate ER [facility] [address]-84 100 mg Orally Once a day Active 1 tablet Vital Signs Date/Time: August 05, 2016 BMI 24.87 Index Weight 136 lbs Height 62 in Temperature 97.7 F Blood Pressure Diastolic 88 mm Hg Blood Pressure Systolic 147 mm Hg Results No Known Results Summary Purpose eClinicalWorks Submission
--- OUTSIDE RECORDS SUMMARY | 2018-05-05 06:35 | XMS REPORT | Continuity of Care Document ---
Author Author [facility] Interface Address Unknown Phone Unavailable Problems Problem Status Onset Date Classification Date Reported Comments Source CHEST PAIN Active 01/05/2015 [facility] H/O heart artery stent Active 03/18/2011 Problem 02/28/2018 Enayet Rahim Acid reflux Active Problem 07/24/2011 [facility] CABG - Coronary artery bypass graft Active Problem 07/24/2011 [facility] CAD - Coronary artery disease Active Problem 07/24/2011 [facility] Chest pain Active Problem 07/24/2011 [facility] HLD - Hyperlipidemia Active Problem 07/24/2011 [facility] HTN - Hypertension Active Problem 07/24/2011 [facility] Acid reflux Active Problem 01/09/2015 [facility] Acute abscess Active Problem 01/09/2015 [facility] CABG - Coronary artery bypass graft Active Problem 01/09/2015 [facility] CAD - Coronary artery disease Active Problem 01/09/2015 [facility] Chest pain Active Problem 01/09/2015 [facility] Cholesterol Resolved Problem 01/09/2015 [facility] GERD - Gastro-esophageal reflux disease Resolved Problem 01/09/2015 [facility] HLD - Hyperlipidemia Active Problem 01/09/2015 [facility] HTN - Hypertension Active Problem 01/09/2015 [facility] Hyperlipidemia Active Problem 01/09/2015 [facility] Hypertension Active Problem 01/09/2015 [facility] [place] (<span [id number]</span>) Resolved Problem 01/09/2015 [facility] Pure hypercholesterolemia Active Problem 02/28/2018 Enayet Rahim HTN Active Problem 02/28/2018 Enayet Rahim,[id number] Acute cystitis without hematuria Active Diagnosis 06/28/2016 Enayet Rahim CAD Active Problem 02/28/2018 Enayet Rahim Status post fall Active Problem 02/28/2018 Enayet Rahim Recurrent UTI Active Problem 02/28/2018 Enayet Rahim,[id number] Seasonal allergic rhinitis due to pollen Active Problem 02/28/2018 [facility] Chronic frontal sinusitis Active Problem 02/28/2018 [facility] Coronary atherosclerosis of [place] coronary artery Active Problem 02/28/2018 [facility] Essential hypertension Active Problem 02/28/2018 [facility] Angina at rest Active Problem 02/28/2018 [facility] Adjustment disorder with mixed anxiety and depressed mood Active Diagnosis 02/28/2018 [facility] Erectile dysfunction, unspecified erectile dysfunction type Active Problem 02/28/2018 [facility] Left hip pain Active Problem 02/28/2018 [facility] Acute tracheobronchitis Active Problem 02/28/2018 [facility] Anxiety Active Problem 02/28/2018 [facility] [place] Erectile dysfunction due to arterial insufficiency Active Diagnosis 02/28/2018 [facility] Hi,[id number] chronic back pain Active Problem 02/28/2018 [facility] Peripheral neuropathy Active Problem 02/28/2018 [facility] Carotid stenosis, left Active Problem 02/28/2018 [facility] Insomnia Active Problem 02/28/2018 [facility] [place] BPH Active Problem 02/28/2018 [facility] Hi,[id number] Primary osteoarthritis of both hips Active Problem 02/28/2018 [facility] Acute right hip pain Active Diagnosis 01/29/2017 [facility] Gastroesophageal reflux disease without esophagitis Active Problem 02/28/2018 [facility] [place] Benign non-nodular prostatic hyperplasia with lower urinary tract symptoms Active Problem 02/28/2018 [facility] Other secondary acute gout of right foot Active Problem 02/28/2018 [facility] [place] Persistent cough Active Diagnosis 08/08/2016 [facility] [place] Muscle spasm Active Diagnosis 11/26/2016 [facility] Left arm pain Active Diagnosis 11/26/2016 [facility] Atherosclerotic heart disease of [place] coronary artery without angina pectoris Active Problem 02/28/2018 [facility]win [place] Lumbago with sciatica, right side Active Problem 02/28/2018 [facility] Other chronic pain Active Problem 02/28/2018 [facility] Allergic conjunctivitis of both eyes Active Diagnosis 02/12/2018 [facility] Neck pain Active Diagnosis 02/28/2018 [facility] Tooth infection Active Diagnosis 09/09/2017 [facility] Hyperglycemia Active Diagnosis 09/09/2017 [facility] Frequent urination at night Active Diagnosis 09/09/2017 [facility] Neck pain on left side Active Diagnosis 02/12/2018 [facility] Chest pain, unspecified Active Diagnosis 12/30/2017 [facility] Hi Coronary atherosclerosis of [place] coronary artery Active Problem 12/25/2015 [facility] Hi Cough Active Diagnosis 02/26/2016 [facility] Hi Adverse effect of uvjebadoitm-uyubxvbyza-bqpjkn inhibitors, initial encounter Active Diagnosis 02/26/2016 [facility] Hip pain, left Active Diagnosis 04/22/2016 [facility] Hi Influenza vaccine administered Active Problem 04/23/2015 [id number] Osteoarthritis Active Problem 04/23/2015 [id number] Left shoulder pain Active Problem 04/23/2015 [id number] Cardiomyopathy Active Problem 04/23/2015 [id number] Adjustment disorder with anxiety Active Problem 04/23/2015 [id number] CAD , bypass graft transplanted heart Active Problem 04/23/2015 [id number] Acute bronchitis Active Problem 04/23/2015 [id number] Cervical radiculopathy due to degenerative joint disease of spine Active Problem 04/23/2015 [id number] URI Active Diagnosis 04/23/2015 [id number] Coronary artery disease of [place] artery of [place] heart with stable angina pectoris Active Diagnosis 04/28/2016 [facility] Medications Medication Details Route Status Patient Instructions Ordering Provider Order Date Source Viagra 1 tablet as needed Orally Active 50 mg Orally Once a day as needed [facility] 06/20/2018 [facility] Naproxen 1 tablet with food or milk as needed Orally Active 500 MG Orally every 12 hrs prn [facility] 02/20/2018 [facility] Loratadine 1 tablet Orally Active 10 MG Orally Once a day [facility] 02/03/2018 [facility] Olopatadine HCl as directed Ophthalmic Active 0.2 % Ophthalmic bid [facility] 10/28/2017 [facility] Tylenol/Codeine #3 1 tablet as needed Orally Active 300-30 MG Orally every 12 hrs [facility] 10/13/2017 [facility] Amoxicillin 1 tablet Orally Active 500 MG Orally every 12 hrs [facility] 08/28/2017 [facility] Atorvastatin Calcium 1 tablet Orally Active 10 mg Orally Once a day [facility] 07/29/2017 [facility] Viagra 1 tablet as needed Orally Active 100 mg Orally Once a day [facility] 07/29/2017 [facility] PredniSONE 1 tablet Orally Active 20 mg Orally Once a day [facility] 06/24/2017 [facility] Losartan Potassium 1 tablet Orally Active 25 MG Orally Once a day [facility] 12/16/2016 [facility] Losartan Potassium 1 tablet Orally Active 50 MG Orally Once a day [facility] 12/16/2016 [facility] Baclofen 1 tablet with food or milk Orally Active 10 MG Orally twice a day (bid) as needed (prn) [facility] 11/21/2016 [facility] Cialis 1 tablet Orally Active 2.5 MG Orally Once a day [facility] 09/19/2016 [facility] Fexofenadine HCl 1 tablet as needed Orally Active 60 MG Orally daily [facility] 08/05/2016 [facility] Pantoprazole Sodium 1 tablet Orally Active 40 MG Orally Once a day [facility] 08/05/2016 [facility] Tamsulosin HCl 1 capsule Orally Active 0.4 MG Orally Once a day [facility] 07/08/2016 [facility] Ciprofloxacin HCl 1 tablet Orally Active 500 MG Orally Twice a day [facility] Ator[facility] Calcium 1 tablet Orally Active 40 MG Orally Once a day [facility] 06/26/2016 [facility] Atorvastatin Calcium 1 tablet Orally Active 40 MG Orally Once a day [facility] 06/26/2016 [facility] Levaquin 1 tablet Orally Active 500 MG Orally Once a day [facility] 04/09/2016 [facility] Flonase 1 spray in each nostril Nasally Active 50 MCG/ACT Nasally Once a day [facility] 04/09/2016 [facility] Levaquin 1 tablet Orally Active 500 MG Orally Once a day [facility] 03/27/2016 [facility] Baclofen 1 tablet with food or milk Orally Active 10 MG Orally twice a day (bid) [facility] 03/21/2016 [facility] Losartan Potassium 1 tablet Orally Active 50 MG Orally Once a day [facility] 02/20/2016 [facility] Losartan Potassium 1 tablet Orally Active 25 MG Orally Once a day [facility]20[facility] Azith[facility] 2 tablets on the first day, then 1 tablet daily for 4 days Orally Active 250 MG Orally Once a day [facility] 02/02/2016 [facility] Azithromycin 2 tablets on the first day, then 1 tablet daily for 4 days Orally Active 250 MG Orally Once a day [facility] 12/21/2015 [facility] Acetaminophen-Codeine #3 1 tablet as needed Orally Active 300- 30 MG Orally three times a day (tid) as needed (prn) [facility] 11/09/2015 [facility] Tadalafil 1 tablet Orally Active 5 MG Orally every 24 hrs [facility] 09/29[facility] Sildenafil Citrate 1 tablet as needed Orally No Longer Active 50 mg Orally Once a day [facility] 08/23/2015 [facility] Nitrofurantoin 1 capsule Orally Active 50 mg Orally Once a day [facility] 07/27/2015 [facility] Plavix 1 tablet Orally Active 75 mg Orally Once a day [facility] 06/30/2015 [facility] Plavix 1 tablet Orally Active 75 mg Orally Once a day [facility] 06/30/2015 [facility] Lisinopril 1 tablet Orally Active 2.5 MG Orally Once a day [facility] 06/30/2015 [facility] Lisinopril 1 tablet Orally No Longer Active 5 MG Orally Once a day [facility] 06/30/2015 [facility] Aspirin 1 tablet Orally Active 81 MG Orally Once a day [facility] 06/06/2015 [id number] Levaquin 1 tablet Orally Active 500 mg Orally Once a day [facility] 04/20/2015 [id number] Cialis 1 tablet Orally Active 5 MG Orally every 24 hrs [facility] 04/20/2015 [id number] Tamsulosin HCl 1 capsule 30 minutes after the same meal each day Orally Active 0.4 MG Orally Once a day [facility] 03/08/2015 [id number] Tramadol HCl 1 tablet Orally Active 50 mg Orally twice a day (bid) as needed (prn) [facility] 03/01/2015 [id number] atorvastatin 40 mg, 1 tab, Route: PO, Drug form: TAB, Bedtime, Dosing Weight 60.455, kg, Start date: 01/06/15 21:00:00, Duration: 30 day, Stop date: 02/04/15 21:00:00Notes: (Same as: Lipitor) Inactive 01/07/2015 [facility] Protonix 40 mg, 1 tab, Route: PO, Drug form: ECTAB, Before Dinner, Dosing Weight 60.455, kg, Start date: 01/06/15 16:30:00, Duration: 30 day, Stop date: 02/04/15 16:30:00Notes: Tablet should not be chewed or crushed. (Same as: Protonix) Inactive 01/06/2015 [facility] ALPRAZOLam 1 mg oral tablet, disintegrating 1 mg=1 tab, PO, TID, PRN Anxiety, X 14 day, # 42 tab, 0 Refill(s) Active 01/06/2015 [facility] atorvastatin 40 mg oral tablet 40 mg=1 tab, PO, Bedtime, # 30 tab, 0 Refill(s) Active 01/06/2015 [facility] Prinivil 40 mg, 2 tab, Route: PO, Drug form: TAB, Daily, Start date: 01/06/15 9:00:00, Duration: 30 day, Stop date: 02/04/15 9:00:00Notes: (Same as: Prinivil, Zestril) Inactive 01/06/2015 [facility] 24 HR Metoprolol Tartrate 100 MG Extended Release Tablet [Toprol] 100 mg, 1 tab, Route: PO, Drug form: ERTAB, Daily, Start date: 01/06/15 9:00:00, Duration: 30 day, Stop date: 02/04/15 9:00:00Notes: (Same as: Toprol XL) May split tab, but do not crush. Inactive 01/06/2015 [facility] Aspirin 81 MG Enteric Coated Tablet 81 mg, 1 tab, Route: PO, Drug form: ECTAB, Daily, Dosing Weight 60.455, kg, Start date: 01/06/15 9:00:00, Duration: 30 day, Stop date: 02/04/15 9:00:00Notes: Do not crush or chew. (Same As: Ecotrin) Inactive 01/06/2015 [facility] Amlodipine 5 MG / Benazepril hydrochloride 40 MG Oral Capsule 1 cap, Route: PO, Drug Form: CAP, Dosing Weight 60.455, kg, Daily, Start date: 01/06/15 9:00:00, Duration: 30 day, Stop date: 02/04/15 9:00:00 Inactive 01/06/2015 [facility] ergocalciferol 50,000 IntlUnit, 1 cap, Route: PO, Drug form: CAP, Daily, Dosing Weight 60.455, kg, Start date: 01/06/15 9:00:00, Duration: 3 day, Stop date: 01/08/15 9:00:00Notes: (Same as: Vitamin D) "Do Not Crush" Inactive 01/06/2015 [facility] Norvasc 5 mg, 1 tab, Route: PO, Drug form: TAB, Daily, Start date: 01/06/15 9:00:00, Duration: 30 day, Stop date: 02/04/15 9:00:00Notes: (Same as: Norvasc) Inactive 01/06/2015 [facility] Alprazolam 0.5 MG Oral Tablet [Xanax] 0.5 mg, 1 tab, Route: PO, Drug form: TAB, TID, Dosing Weight 60.455, kg, PRN Anxiety, Start date: 01/06/15 8:09:00, Duration: 30 day, Stop date: 02/05/15 8:08:00Notes: With food or milk (Same as: Xanax) Inactive 01/06/2015 [facility] Amlodipine 5 MG / Benazepril hydrochloride 40 MG Oral Capsule 1 cap, PO, Daily, # 30 cap, 0 Refill(s) Active 01/06/2015 [facility] atorvastatin 20 mg, PO, Bedtime, 0 Refill(s) Inactive 01/06/2015 [facility] Metoprolol 5 mg, 5 mL, Route: IV, Drug form: INJ, Q2H, Dosing Weight 60.455, kg, PRN Tachycardia, Start date: 01/05/15 23:10:00, Duration: 30 day, Stop date: 02/04/15 23:09:00Notes: (Same as: Lopressor) Push over 2 minutes No Longer Active 01/06/2015 [facility] Nitroglycerin 0.4 MG Sublingual Tablet [Nitrostat] 0.4 mg, 1 tab, Route: SL, Drug form: TAB, Q5Min, Dosing Weight 60.455, kg, PRN Chest Pain, Start date: 01/05/15 23:10:00, Duration: 3 doses or times, Stop date: Limited # of timesNotes: (Same as:Nitroquick, Nitrostat) "Do Not Crush" Sublingual tablet No Longer Active 01/06/2015 [facility] Hydralazine 10 mg, 0.5 mL, Route: IV, Drug form: INJ, Q4H, Dosing Weight 60.455, kg, PRN Hypertension, Start date: 01/05/15 23:10:00, Duration: 30 day, Stop date: 02/04/15 23:09:00Notes: (Same as: Apresoline) Push over 5 minutes No Longer Active 01/06/2015 [facility] nitroglycerin 0.4 mg sublingual tablet 0.4 mg, 1 tab, Route: SL, Drug form: TAB, Q5Min, PRN Chest Pain, Start date: 01/05/15 19:07:00, Duration: 30 day, Stop date: 02/04/15 18:06:00Notes: (Same as:Nitroquick, Nitrostat) "Do Not Crush" Sublingual tablet No Longer Active 01/06/2015 [facility] atropine 0.5 mg, 5 mL, Route: IVP, Drug form: INJ, PRN, PRN Bradycardia, Start date: 01/05/15 19:07:00, Duration: 30 day, Stop date: 02/04/15 18:06:00 No Longer Active 01/06/2015 [facility] Acetaminophen 325 MG / Hydrocodone Bitartrate 5 MG Oral Tablet 1 tab, Route: PO, Drug Form: TAB, Dosing Weight 60.455, kg, Q4H, PRN Pain Score 4-6, Start date: 01/05/15 18:50:00, Duration: 30 day, Stop date: 02/04/15 18:49:00Notes: (Same as: [employer] 325/5) Do not exceed 4gm/day of acetaminophen. No Longer Active 01/05/2015 [facility] Acetaminophen 650 mg, 2 tab, Route: PO, Drug form: TAB, Q4H, Dosing Weight 60.455, kg, PRN Pain 1-3/Temp > 100.4 F, Start date: 01/05/15 18:50:00, Duration: 30 day, Stop date: 02/04/15 18:49:00Notes: Do not exceed 4 gm/day. (Same as: Tylenol) No Longer Active 01/05/2015 [facility] Docusate 100 mg, 1 cap, Route: PO, Drug form: CAP, BID, Dosing Weight 60.455, kg, PRN Constipation, Start date: 01/05/15 18:50:00, Duration: 30 day, Stop date: 02/04/15 18:49:00Notes: (Same as: Colace) (Do Not Crush) No Longer Active 01/05/2015 [facility] Morphine 2 mg, 1 mL, Route: IVP, Drug form: INJ, Q4H, Dosing Weight 60.455, kg, PRN Pain Score 7-10, Start date: 01/05/15 18:50:00, Duration: 30 day, Stop date: 02/04/15 18:49:00Notes: (Same as:MORPhine Sulfate) No Longer Active 01/05/2015 [facility] Ondansetron 4 mg, 2 mL, Route: IVP, Drug form: INJ, Q6H, Dosing Weight 60.455, kg, PRN Nausea & Vomiting, Start date: 01/05/15 18:50:00, Duration: 30 day, Stop date: 02/04/15 18:49:00Notes: (Same as: Zofran) MEDICATION WASTE Product Size: 4 mg Product Wasted: ___ mg No Longer Active 01/05/2015 [facility] Enoxaparin 40 mg, 0.4 mL, Route: SUB-Q, Drug form: INJ, [id number], Dosing Weight 60.455, kg, Start date: 01/05/15 17:00:00, Duration: 30 day, Stop date: 02/03/15 17:00:00Notes: (Same as: Lovenox) No Longer Active 01/05/2015 [facility] Aspirin 81 MG Enteric Coated Tablet 81 mg, 1 tab, Route: PO, Drug form: ECTAB, ONCE, Dosing Weight 60.455, kg, Priority: STAT, Start date: 01/05/15 16:51:00, Stop date: 01/05/15 16:51:00Notes: Do not crush or chew. (Same As: Ecotrin) Inactive 01/05/2015 [facility] Saline Flush 0.9% 10 mL, Route: IVP, Drug Form: INJ, Dosing Weight 60.455, kg, PRN, PRN Line Flush, Start date: 01/05/15 14:13:00, Duration: 30 day, Stop date: 02/04/15 13:12:00Notes: (Same as: BD Posiflush) Inactive 01/05/2015 [facility] Lipitor 20 mg, 2 tab, Route: PO, Drug form: TAB, Bedtime, Start date: 07/22/11 21:00:00, Duration: 30 day, Stop date: 08/20/11 21:00:00 PO No Longer Active Katherine 07/23/2011 [facility] Nexium 40 mg, Route: PO, Drug form: DRC, Before Dinner, Start date: 07/22/11 16:30:00, Duration: 30 day, Stop date: 08/20/11 16:30:00 PO No Longer Active Katherine 07/22/2011 [facility] Protonix 40 mg, 1 tab, Route: PO, Drug form: ECTAB, Before Dinner, Start date: 07/22/11 16:30:00, Duration: 30 day, Stop date: 08/20/11 16:30:00 PO No Longer Active Katherine 07/22/2011 [facility] Plavix 75 mg, 1 tab, Route: PO, Drug form: TAB, Daily, Start date: 07/22/11 9:00:00, Duration: 30 day, Stop date: 08/20/11 9:00:00 PO No Longer Active Katherine 07/22/2011 [facility] aspirin 81 mg tablet, enteric coated 81 mg, 1 tab, Route: PO, Drug form: ECTAB, Daily, Start date: 07/22/11 9:00:00, Duration: 30 day, Stop date: 08/20/11 9:00:00 PO No Longer Active Katherine 07/22/2011 [facility] Lotrel 10 mg-20 mg oral capsule 1 cap, Route: PO, Drug Form: CAP, Daily, Start date: 07/22/11 9:00:00, Duration: 30 day, Stop date: 08/20/11 9:00:00 PO No Longer Active Katherine 07/22/2011 [facility] Saline Flush 0.9% 5 ml, Route: IVP, Drug Form: INJ, Q12H, Start date: 07/22/11 9:00:00, Duration: 30 day, Stop date: 08/20/11 21:00:00 IVP No Longer Active Katherine 07/22/2011 [facility] aspirin 325 mg tablet 325 mg, 1 tab, Route: PO, Drug form: TAB, Daily, Start date: 07/22/11 9:00:00, Duration: 30 day, Stop date: 08/20/11 9:00:00 PO No Longer Active Katherine 07/22/2011 [facility] Prinivil 20 mg, 1 tab, Route: PO, Drug form: TAB, Daily, Start date: 07/22/11 9:00:00, Duration: 30 day, Stop date: 08/20/11 9:00:00 PO No Longer Active Katherine 07/22/2011 [facility] Norvasc 10 mg, 2 tab, Route: PO, Drug form: TAB, Daily, Start date: 07/22/11 9:00:00, Duration: 30 day, Stop date: 08/20/11 9:00:00 PO No Longer Active Katherine 07/22/2011 [facility] nitroglycerin 2% ointment 0.5 inch, Route: TOP, Drug Form: OINT, TID, Start date: 07/22/11 6:00:00, Duration: 30 day, Stop date: 08/20/11 18:00:00 TOP No Longer Active Katherine 07/22/2011 [facility] Toprol-XL 100 mg oral tablet, extended release 100 mg, 1 tab, Route: PO, Drug form: ERTAB, Daily, Start date: 07/21/11 22:23:00, Duration: 30 day, Stop date: 08/20/11 9:00:00 PO No Longer Active Katherine 07/22/2011 [facility] Xanax 0.5 mg oral tablet 0.5 mg, 1 tab, Route: PO, Drug form: TAB, TID, PRN as needed for anxiety, Start date: 07/21/11 22:08:00, Duration: 30 day, Stop date: 08/20/11 22:07:00 PO No Longer Active Katherine 07/22/2011 [facility] nitroglycerin 0.4 mg sublingual tablet 0.4 mg, 1 tab, Route: SL, Drug form: TAB, Q5Min, PRN Chest Pain, Start date: 07/21/11 22:01:00, Duration: 30 day, Stop date: 08/20/11 22:00:00 SL No Longer Active Katherine 07/22/2011 [facility] atropine 0.5 mg, 5 mL, Route: IVP, Drug form: INJ, PRN, PRN Bradycardia, Start date: 07/21/11 22:00:00, Duration: 30 day, Stop date: 08/20/11 21:59:00 IVP No Longer Active Katherine 07/22/2011 [facility] Saline Flush 0.9% 5 ml, Route: IVP, Drug Form: INJ, PRN, PRN Line Flush, Start date: 07/21/11 21:41:00, Duration: 30 day, Stop date: 08/20/11 21:40:00 IVP No Longer Active Katherine 07/22/2011 [facility] nitroglycerin SL Tab 0.4 mg, 1 tab, Route: SL, Drug form: TAB, Q5Min, PRN Chest Pain, Start date: 07/21/11 21:41:00, Duration: 3 doses or times, Stop date: Limited # of times SL No Longer Active Katherine 07/22/2011 [facility] aspirin 325 mg tablet 325 mg, Route: PO, Drug form: TAB, ONCE, Priority: STAT, Start date: 07/21/11 21:07:00, Stop date: 07/21/11 21:07:00 PO No Longer Active Nriagu 07/22/2011 [facility] amoxicillin 250 mg/5 mL oral liquid 1,556.825 mg, 31.137 mL, PO, TID, 654 mL, Substitution Allowed, PDR/REC PO No Longer Active Nriagu 07/22/2011 [facility] acetaminophen 120 mg/5 mL oral liquid 720 mg, 30 mL, PO, Q4H, 300 mL, Substitution Allowed PO No Longer Active Nriagu 07/22/2011 [facility] ibuprofen 100 mg/5 mL oral suspension 622.73 mg, 31.137 mL, PO, Q6H, PRN, 300 mL, Fever, Substitution Allowed PO No Longer Active Nriagu 07/22/2011 [facility] aspirin 325 mg tablet 325 mg, 1 tab, Route: PO, Drug form: TAB, ONCE, Priority: STAT, Start date: 07/21/11 18:36:00, Stop date: 07/21/11 18:36:00 PO No Longer Active Nriagu 07/21/2011 [facility] Saline Flush 0.9% 5 ml, Route: IVP, Drug Form: INJ, PRN, PRN Line Flush, Start date: 07/21/11 18:36:00, Duration: 24 hr, Stop date: 07/22/11 18:35:00 IVP No Longer Active Nriagu 07/21/2011 [facility] Amlodipine Besylate 1 tablet Orally Active 10 mg Or[id number] Flonase 1 spray in each nostril Nasally Active 50 MCG/ACT Nasally Once a day [facility] Aspirin 1 tablet Orally Active 81 MG Orally Once a day [facility] Metoprolol Succinate ER TAKE 1 TABLET BY MOUTH EVERY DAY NA Active 100 [facility] Amlodipine Besylate TAKE 1 TABLET BY MOUTH EVERY DAY NA Active 10 [facility] Xanax 1 tablet Orally Active 0.5 MG Orally Three times a day [facility] [facility],[id number] Metoprolol Succinate ER 1 tablet Orally Active 100 mg Orally Once a day [facility],[id number] Aspirin 1 tablet Orally Active 81 MG Orally Once a day [facility] Baclofen 1 tablet with food or milk Orally Active 10 MG Orally twice a day (bid) as needed (prn) [facility] Pantoprazole Sodium 1 tablet Orally Active 40 MG Orally Once a day [facility] Xanax 1 tablet Orally Active 0.5 MG Orally bid [facility] Ciprofloxacin HCl 1 tablet Orally Active 500 MG Orally Twice a day [facility] Tamsulosin HCl 1 capsule Orally Active 0.4 MG Orally Once a day [facility] Metoprolol Succinate ER TAKE 1 TABLET BY MOUTH EVERY DAY po Active 100 po once daily [facility] Naproxen not defined NA Active [facility] Losartan Potassium 1 tablet Orally Active 50 MG Orally Once a day [facility] Pantoprazole Sodium 1 tablet Orally Active 40 mg Orally Once a day [facility] Clopidogrel Bisulfate 1 tablet Orally Active 75 mg Orally Once a day [place] [id number] Allergies, Adverse Reactions, Alerts Substance Category Reaction Severity Reaction type Status Date Reported Comments Source N.K.D.A. Adverse Reaction Info Not Available Adverse Reaction Active 02/20/2018 Enayet Rahim Immunizations Immunization Date Given Site Status Last Updated Comments Source Influenza 02/02/2016 completed Enayet Rahim Results Order Name Results Value Reference Range Date Interpretation Comments Source CARDIAC ENZYMES Total CK 75 unit/L 12 - 191 01/06/2015 [facility] CARDIAC ENZYMES Troponin-I null 0.00 - 0.40 01/06/2015 [facility] CARDIAC ENZYMES CK MB 1.8 ng/mL 0.5 - 3.6 01/06/2015 [facility] CARDIAC ENZYMES CK MB Index 2.4 0.0 - 2.5 01/06/2015 [facility] URINE AND STOOL UA Urobilinogen <=1.0 mg/dL 0.1 - 1.0 01/06/2015 [facility] URINE AND STOOL UA Color Ltyellow 01/06/2015 [facility] URINE AND STOOL UA Bacteria Occasional /HPF None Seen /HPF 01/06/2015 [facility] URINE AND STOOL UA Sq Epi Occasional /LPF Few /LPF 01/06/2015 [facility] URINE AND STOOL UA Leuk Est Trace *ABN* (01/06/15 4:39 AM) Negative 01/06/2015 [facility] URINE AND STOOL UA Ketones Negative mg/dL Negative mg/dL 01/06/2015 [facility] URINE AND STOOL UA Glucose 50 mg/dL Negative mg/dL 01/06/2015 [facility] URINE AND STOOL UA WBC 5 /HPF 0 - 5 01/06/2015 [facility] URINE AND STOOL UA RBC 1 /HPF 0 - 2 01/06/2015 [facility] URINE AND STOOL UA Nitrite Negative (01/06/15 4:39 AM) Negative 01/06/2015 [facility] URINE AND STOOL UA Blood Negative (01/06/15 4:39 AM) Negative 01/06/2015 [facility] URINE AND STOOL UA Bili Negative *NA* (01/06/15 4:39 AM) Negative 01/06/2015 [facility] URINE AND STOOL UA Spec Grav 1.011 <=1.030 01/06/2015 [facility] URINE AND STOOL UA Turbidity Marked *ABN* (01/06/15 4:39 AM) Clear 01/06/2015 [facility] URINE AND STOOL UA pH 7.0 5.0 - 8.0 01/06/2015 [facility] URINE AND STOOL UA Protein Negative mg/dL Negative mg/dL 01/06/2015 [facility] CARDIAC ENZYMES BNP 117 pg/mL <=100 pg/mL 01/06/2015 [facility] CHEM PANEL Vitamin D, 25-OH, Total 18 ng/mL 30 - 100 01/06/2015 [facility] CHEM PANEL Uric Acid 5.4 mg/dL 3.8 - 8.0 01/06/2015 [facility] CHEM PANEL eGFR 76 mL/min/1.73m2 01/06/2015 Result Comment: The eGFR is calculated using the [...] from the National Kidney Disease Education Program (NKDEP) which additionally recommends that when the eGFR is used in patients with extremes of body mass index for purposes of drug dosing, the eGFR should be multiplied by the estimated BMI. [facility] CHEM PANEL Creatinine Lvl 1.0 mg/dL 0.5 - 1.4 01/06/2015 [facility] CHEM PANEL Glucose Lvl 102 mg/dL 70 - 99 01/06/2015 [facility] CHEM PANEL BUN 13 mg/dL 7 - 22 01/06/2015 [facility] CHEM PANEL CO2 30 meq/L 24 - 32 01/06/2015 [facility] CHEM PANEL Calcium Lvl 9.1 mg/dL 8.5 - 10.5 01/06/2015 [facility] CHEM PANEL Potassium Lvl 4.0 meq/L 3.5 - 5.1 01/06/2015 [facility] CHEM PANEL Chloride Lvl 104 meq/L 95 - 109 01/06/2015 [facility] CHEM PANEL Sodium Lvl 140 meq/L 135 - 145 01/06/2015 [facility] CHEM PANEL AGAP 10.0 meq/L 10.0 - 20.0 01/06/2015 [facility] CHEM PANEL Phosphorus 3.8 mg/dL 2.5 - 4.5 01/06/2015 [facility] CHEM PANEL Magnesium Lvl 2.1 mg/dL 1.8 - 2.4 01/06/2015 [facility] CHEM PANEL Bili Indirect 0.5 mg/dL 0.0 - 1.0 01/06/2015 [facility] CHEM PANEL Total Protein 7.1 g/dL 6.4 - 8.4 01/06/2015 [facility] CHEM PANEL Albumin Lvl 3.5 g/dL 3.5 - 5.0 01/06/2015 [facility] CHEM PANEL Globulin 3.6 g/dL 2.0 - 4.0 01/06/2015 [facility] CHEM PANEL A/G Ratio 1.0 0.7 - 1.6 01/06/2015 [facility] CHEM PANEL ALT 27 unit/L 0 - 65 01/06/2015 [facility] CHEM PANEL AST 18 unit/L 0 - 37 01/06/2015 [facility] CHEM PANEL Alk Phos 117 unit/L 39 - 136 01/06/2015 [facility] CHEM PANEL Bili Total 0.6 mg/dL 0.2 - 1.3 01/06/2015 [facility] CHEM PANEL Bili Direct 0.1 mg/dL 0.0 - 0.3 01/06/2015 [facility] HEMATOLOGY MPV 10.7 fL 7.4 - 10.4 01/06/2015 [facility] HEMATOLOGY Platelet 120 K/CMM 133 - 450 01/06/2015 [facility] HEMATOLOGY RBC 4.65 M/CMM 4.70 - 6.10 01/06/2015 [facility] HEMATOLOGY MCV 91.3 fL 80.0 - 94.0 01/06/2015 [facility] HEMATOLOGY Hct 42.4 % 42.0 - 54.0 01/06/2015 [facility] HEMATOLOGY Hgb 14.3 g/dL 14.0 - 18.0 01/06/2015 [facility] HEMATOLOGY MCH 30.8 pg 27.0 - 31.0 01/06/2015 [facility] HEMATOLOGY MCHC 33.7 g/dL 32.0 - 36.0 01/06/2015 [facility] HEMATOLOGY RDW 13.4 % 11.5 - 14.5 01/06/2015 [facility] HEMATOLOGY WBC 4.0 K/CMM 3.7 - 10.4 01/06/2015 [facility] HEMATOLOGY Eosinophils # 0.2 K/CMM 0.0 - 0.5 01/06/2015 [facility] HEMATOLOGY Lymphocytes # 1.2 K/CMM 1.0 - 5.5 01/06/2015 [facility] HEMATOLOGY Monocytes 11.0 % 2.0 - 12.0 01/06/2015 [facility] HEMATOLOGY Eosinophils 4.8 % 0.0 - 4.0 01/06/2015 [facility] HEMATOLOGY Basophils 0.5 % 0.0 - 1.0 01/06/2015 [facility] HEMATOLOGY Segs-Bands # 2.2 K/CMM 1.5 - 8.1 01/06/2015 [facility] HEMATOLOGY Lymphocytes 29.9 % 20.0 - 40.0 01/06/2015 [facility] HEMATOLOGY Segs 53.8 % 45.0 - 75.0 01/06/2015 [facility] HEMATOLOGY Monocytes # 0.4 K/CMM 0.0 - 0.8 01/06/2015 [facility] IMMUNOLOGY Homocyst Tot 10.2 umol/L 3.7 - 13.9 01/06/2015 [facility] LIPIDS CHD Risk 4.33 4.00 - 7.30 01/06/2015 [facility] LIPIDS VLDL 32 01/06/2015 [facility] LIPIDS LDL (Calculated) 121 mg/dL <=99 mg/dL 01/06/2015 [facility] LIPIDS HDL 46 mg/dL >=61 mg/dL 01/06/2015 [facility] LIPIDS Chol 199 mg/dL <=199 mg/dL 01/06/2015 [facility] LIPIDS Trig 159 mg/dL <=149 mg/dL 01/06/2015 [facility] THYROID PANEL T4 8.0 ug/dl 4.7 - 13.3 01/06/2015 [facility] THYROID PANEL TSH 1.130 uIU/mL 0.360 - 3.740 01/06/2015 [facility] THYROID PANEL T3 Uptake 40 % 31 - 39 01/06/2015 [facility] THYROID PANEL FTI 3.2 01/06/2015 [facility] CARDIAC ENZYMES CK MB 2.2 ng/mL 0.5 - 3.6 01/06/2015 [facility] CARDIAC ENZYMES CK MB Index 2.5 0.0 - 2.5 01/06/2015 [facility] CARDIAC ENZYMES Total CK 88 unit/L 12 - 191 01/06/2015 [facility] CARDIAC ENZYMES Troponin-I null 0.00 - 0.40 01/06/2015 [facility] CARDIAC ENZYMES Troponin-I null 0.00 - 0.40 01/05/2015 [facility] CARDIAC ENZYMES CK MB 2.4 ng/mL 0.5 - 3.6 01/05/2015 [facility] CARDIAC ENZYMES Total CK 106 unit/L 12 - 191 01/05/2015 [facility] CARDIAC ENZYMES CK MB Index 2.3 0.0 - 2.5 01/05/2015 [facility] CARDIAC ENZYMES Total CK 112 unit/L 12 - 191 01/05/2015 [facility] CARDIAC ENZYMES CK MB Index 2.1 0.0 - 2.5 01/05/2015 [facility] CARDIAC ENZYMES CK MB 2.3 ng/mL 0.5 - 3.6 01/05/2015 [facility] CHEM PANEL Magnesium Lvl 2.2 mg/dL 1.8 - 2.4 01/05/2015 [facility] CHEM PANEL Phosphorus 3.1 mg/dL 2.5 - 4.5 01/05/2015 [facility] ELECTROLYTES Potassium Lvl 3.8 meq/L 3.5 - 5.1 01/05/2015 [facility] ELECTROLYTES Chloride Lvl 102 meq/L 95 - 109 01/05/2015 [facility] ELECTROLYTES Calcium Lvl 9.1 mg/dL 8.5 - 10.5 01/05/2015 [facility] ELECTROLYTES Sodium Lvl 139 meq/L 135 - 145 01/05/2015 [facility] ELECTROLYTES eGFR 68 mL/min/1.73m2 01/05/2015 Result Comment: The eGFR is calculated using the [...] from the National Kidney Disease Education Program (NKDEP) which additionally recommends that when the eGFR is used in patients with extremes of body mass index for purposes of drug dosing, the eGFR should be multiplied by the estimated BMI. [facility] ELECTROLYTES A/G Ratio 1.1 0.7 - 1.6 01/05/2015 [facility] ELECTROLYTES Globulin 3.8 g/dL 2.0 - 4.0 01/05/2015 [facility] ELECTROLYTES B/C Ratio 12 6 - 25 01/05/2015 [facility] ELECTROLYTES AGAP 9.8 meq/L 10.0 - 20.0 01/05/2015 [facility] ELECTROLYTES AST 20 unit/L 0 - 37 01/05/2015 [facility] ELECTROLYTES Albumin Lvl 4.1 g/dL 3.5 - 5.0 01/05/2015 [facility] ELECTROLYTES ALT 27 unit/L 0 - 65 01/05/2015 [facility] ELECTROLYTES Glucose Lvl 145 mg/dL 70 - 99 01/05/2015 [facility] ELECTROLYTES CO2 31 meq/L 24 - 32 01/05/2015 [facility] ELECTROLYTES Total Protein 7.9 g/dL 6.4 - 8.4 01/05/2015 [facility] ELECTROLYTES Alk Phos 136 unit/L 39 - 136 01/05/2015 [facility] ELECTROLYTES Bili Total 0.7 mg/dL 0.2 - 1.3 01/05/2015 [facility] ELECTROLYTES BUN 13 mg/dL 7 - 01/05/2015 [facility] ELECTROLYTES Creatinine Lvl 1.1 mg/dL 0.5 - 1.4 01/05/2015 [facility] HEMATOLOGY PTT 30.6 s 22.9 - 35.8 01/05/2015 [facility] HEMATOLOGY PT 13.6 s 12.0 - 14.7 01/05/2015 [facility] HEMATOLOGY INR 1.01 0.85 - 1.17 01/05/2015 [facility] HEMATOLOGY Platelet 134 K/CMM 133 - 450 01/05/2015 [facility] HEMATOLOGY MPV 10.0 fL 7.4 - 10.4 01/05/2015 [facility] HEMATOLOGY Hgb 15.3 g/dL 14.0 - 18.0 01/05/2015 [facility] HEMATOLOGY WBC 7.8 K/CMM 3.7 - 10.4 01/05/2015 [facility] HEMATOLOGY RBC 5.00 M/CMM 4.70 - 6.10 01/05/2015 [facility] HEMATOLOGY MCH 30.5 pg 27.0 - 31.0 01/05/2015 [facility] HEMATOLOGY MCV 91.5 fL 80.0 - 94.0 01/05/2015 [facility] HEMATOLOGY Hct 45.7 % 42.0 - 54.0 01/05/2015 [facility] HEMATOLOGY RDW 13.3 % 11.5 - 14.5 01/05/2015 [facility] HEMATOLOGY MCHC 33.4 g/dL 32.0 - 36.0 01/05/2015 [facility] HEMATOLOGY Segs 72.6 % 45.0 - 75.0 01/05/2015 [facility] HEMATOLOGY Basophils 0.8 % 0.0 - 1.0 01/05/2015 [facility] HEMATOLOGY Segs-Bands # 5.7 K/CMM 1.5 - 8.1 01/05/2015 [facility] HEMATOLOGY Lymphocytes 16.9 % 20.0 - 40.0 01/05/2015 [facility] HEMATOLOGY Monocytes 7.4 % 2.0 - 12.0 01/05/2015 [facility] HEMATOLOGY Eosinophils 2.3 % 0.0 - 4.0 01/05/2015 [facility] HEMATOLOGY Basophils # 0.1 K/CMM 0.0 - 0.2 01/05/2015 [facility] HEMATOLOGY Lymphocytes # 1.3 K/CMM 1.0 - 5.5 01/05/2015 [facility] HEMATOLOGY Monocytes # 0.6 K/CMM 0.0 - 0.8 01/05/2015 [facility] HEMATOLOGY Eosinophils # 0.2 K/CMM 0.0 - 0.5 01/05/2015 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 The lungs are without consolidation or congestion. No pleural effusion or pneumothorax is seen. Fusion hardware in the lower cervical spine is present. IMPRESSION: No acute cardiopulmonary disease. SL: 16 01/05/2015 - - Read by: Todd Tijerina MD Dictated Date/time: 01/05/15 14:48 Electronically Signed by: Todd Tijerina MD 01/05/15 14:48 FINAL REPORT [facility] CK MB Index 1.6 0.0 - 2.5 07/22/2011 Normal [facility] CK MB 2.1 ng/mL 0.5 - 3.6 07/22/2011 Normal [facility] CHEMISTRY Troponin-I null 0.00 - 0.40 07/22/2011 Normal [facility] CHEMISTRY Total CK 135 U/L 12 - 191 07/22/2011 Normal [facility] CHEMISTRY Trig 169 mg/dL 0 - 200 07/22/2011 Normal [facility] CHEMISTRY Chol 182 mg/dL 120 - 200 07/22/2011 Normal [facility] CHEMISTRY HDL 36 mg/dL >=35 07/22/2011 Normal [facility] CHEMISTRY CHD Risk 5.06 4.00 - 7.30 07/22/2011 Normal [facility] CHEMISTRY LDL 112 mg/dL 0 - 129 07/22/2011 Normal [facility] CHEMISTRY Chloride Lvl 109 meq/L 95 - 109 07/22/2011 Normal [facility] CHEMISTRY Potassium Lvl 3.9 meq/L 3.5 - 5.1 07/22/2011 Normal [facility] CHEMISTRY Sodium Lvl 142 meq/L 135 - 145 07/22/2011 Normal [facility] CHEMISTRY Calcium Lvl 8.8 mg/dL 8.5 - 10.5 07/22/2011 Normal [facility] CHEMISTRY Creatinine Lvl 0.8 mg/dL 0.5 - 1.4 07/22/2011 Normal [facility] CHEMISTRY AGAP 14.9 meq/L 10.0 - 20.0 07/22/2011 Normal [facility] CHEMISTRY CO2 22 meq/L 24 - 32 07/22/2011 LOW [facility] CHEMISTRY BUN 16 mg/dL 7 - 22 07/22/2011 Normal [facility] CHEMISTRY Glucose Lvl 118 mg/dL 70 - 99 07/22/2011 [place] 1Interpretive Data: Adult reference range values reflect the clinical guidelinesof the [place] [employer]. [facility] HEMATOLOGY Monocytes # 0.3 K/CMM 0.0 - 0.8 07/22/2011 Normal [facility] HEMATOLOGY Basophils # 0.0 K/CMM 0.0 - 0.2 07/22/2011 Normal [facility] HEMATOLOGY Eosinophils # 0.2 K/CMM 0.0 - 0.5 07/22/2011 Normal [facility] HEMATOLOGY Eosinophils 4.2 % 0.0 - 4.0 07/22/2011 HI [facility] HEMATOLOGY Monocytes 8.4 % 2.0 - 12.0 07/22/2011 Normal [facility] HEMATOLOGY Segs-Bands # 2.6 K/CMM 1.5 - 8.1 07/22/2011 Normal [facility] HEMATOLOGY Basophils 0.4 % 0.0 - 1.0 07/22/2011 Normal [facility] HEMATOLOGY Lymphocytes # 0.9 K/CMM 1.0 - 5.5 07/22/2011 LOW [facility] HEMATOLOGY Lymphocytes 23.0 % 20.0 - 40.0 07/22/2011 Normal [facility] HEMATOLOGY Segs 64.0 % 45.0 - 75.0 07/22/2011 Normal [facility] HEMATOLOGY Hgb 13.7 g/dL 14.0 - 18.0 07/22/2011 LOW [facility] HEMATOLOGY Hct 40.5 % 42.0 - 54.0 07/22/2011 LOW [facility] HEMATOLOGY RBC 4.43 M/CMM 4.70 - 6.10 07/22/2011 LOW [facility] HEMATOLOGY MCHC 33.9 g/dL 32.0 - 36.0 07/22/2011 Normal [facility] HEMATOLOGY MCH 31.0 pg 27.0 - 31.0 07/22/2011 Normal [facility] HEMATOLOGY MCV 91.5 fL 80.0 - 94.0 07/22/2011 Normal [facility] HEMATOLOGY WBC 4.0 K/CMM 3.7 - 10.4 07/22/2011 Normal [facility] HEMATOLOGY Platelet 122 K/CMM 133 - 450 07/22/2011 LOW [facility] HEMATOLOGY MPV 10.1 fL 7.4 - 10.4 07/22/2011 Normal [facility] HEMATOLOGY RDW 12.7 % 11.5 - 14.5 07/22/2011 Normal [facility] CHEMISTRY CK MB Index 1.4 0.0 - 2.5 07/22/2011 Normal [facility] CHEMISTRY CK MB 2.0 ng/mL 0.5 - 3.6 07/22/2011 Normal [facility] CHEMISTRY Troponin-I null 0.00 - 0.40 07/22/2011 Normal [facility] CHEMISTRY Total CK 144 U/L 12 - 191 07/22/2011 Normal [facility] CHEMISTRY Lipase Lvl 275 U/L 73 - 393 07/21/2011 Normal [facility] CHEMISTRY Troponin-I null 0.00 - 0.40 07/21/2011 Normal [facility] CHEMISTRY B/C Ratio 19 6 - 25 07/21/2011 Normal [facility] CHEMISTRY AGAP 13.1 meq/L 10.0 - 20.0 07/21/2011 Normal [facility] CHEMISTRY Albumin Lvl 4.1 g/dL 3.5 - 5.0 07/21/2011 Normal [facility] CHEMISTRY Calcium Lvl 9.0 mg/dL 8.5 - 10.5 07/21/2011 Normal [facility] CHEMISTRY CO2 24 meq/L 24 - 32 07/21/2011 Normal [facility] CHEMISTRY Chloride Lvl 110 meq/L 95 - 109 07/21/2011 HI [facility] CHEMISTRY Potassium Lvl 4.1 meq/L 3.5 - 5.1 07/21/2011 Normal [facility] CHEMISTRY Sodium Lvl 143 meq/L 135 - 145 07/21/2011 Normal [facility] CHEMISTRY BUN 21 mg/dL 7 - 22 07/21/2011 Normal [facility] CHEMISTRY Creatinine Lvl 1.1 mg/dL 0.5 - 1.4 07/21/2011 Normal [facility] CHEMISTRY Glucose Lvl 106 mg/dL 70 - 99 07/21/2011 [place] 2Interpretive Data: Adult reference range values reflect the clinical guidelinesof the [place] [employer]. [facility] CHEMISTRY AST 21 U/L 0 - 37 07/21/2011 Normal [facility] CHEMISTRY Total Protein 7.6 g/dL 6.4 - 8.4 07/21/2011 Normal [facility] CHEMISTRY ALT 35 U/L 0 - 65 07/21/2011 Normal [facility] CHEMISTRY Globulin 3.5 g/dL 2.0 - 4.0 07/21/2011 Normal [facility] CHEMISTRY Bili Total 0.4 mg/dL 0.2 - 1.3 07/21/2011 Normal [facility] CHEMISTRY A/G Ratio 1.2 0.7 - 1.6 07/21/2011 Normal [facility] CHEMISTRY Alk Phos 109 U/L 39 - 136 07/21/2011 Normal [facility] CHEMISTRY BNP 58 pg/mL <=100 07/21/2011 Normal 3Interpretive Data: Elevated results are in line with increasing severity of congestive heart failure. Minor elevations between 100 and 300 may be seen with Myocardial Ischemia, Sodium retaining drug s, and compensated/treated heart failure. [facility] CHEMISTRY CK MB 1.9 ng/mL 0.5 - 3.6 07/21/2011 Normal [facility] CHEMISTRY Total CK 171 U/L 12 - 191 07/21/2011 Normal [facility] CHEMISTRY CK MB Index 1.1 0.0 - 2.5 07/21/2011 Normal [facility] HEMATOLOGY INR 1.03 0.85 - 1.17 07/21/2011 Normal 4Interpretive Data: RECOMMENDED RANGES FOR PROTIME INR: 2.0-3.0 for most medical and surgical thromboembolic states. 2.5-3.5 for artificial heart valves and recurrent embolism.INR SHOULD BE USED ONLY FOR PATIENTS ON STABLE ANTICOAGULANT THERAPY. [facility] HEMATOLOGY PTT 30.7 s 22.9 - 35.8 07/21/2011 Normal 5Interpretive Data: Heparin Therapeutic Range: 57 - 92 Seconds [facility] HEMATOLOGY PT 13.5 s 12.0 - 14.7 07/21/2011 Normal [facility] HEMATOLOGY MPV 9.9 fL 7.4 - 10.4 07/21/2011 Normal [facility] Platelet 116 K/CMM 133 - 450 07/21/2011 LOW [facility] RDW 12.5 % 11.5 - 14.5 07/21/2011 Normal [facility] HEMATOLOGY MCHC 33.9 g/dL 32.0 - 36.0 07/21/2011 Normal [facility] HEMATOLOGY MCH 31.0 pg 27.0 - 31.0 07/21/2011 Normal [facility] HEMATOLOGY MCV 91.6 fL 80.0 - 94.0 07/21/2011 Normal [facility] HEMATOLOGY Hct 38.1 % 42.0 - 54.0 07/21/2011 LOW [facility] HEMATOLOGY Hgb 12.9 g/dL 14.0 - 18.0 07/21/2011 LOW [facility] HEMATOLOGY RBC 4.16 M/CMM 4.70 - 6.10 07/21/2011 LOW [facility] HEMATOLOGY WBC 4.0 K/CMM 3.7 - 10.4 07/21/2011 Normal [facility] HEMATOLOGY Basophils # 0.0 K/CMM 0.0 - 0.2 07/21/2011 Normal [facility] HEMATOLOGY Eosinophils # 0.2 K/CMM 0.0 - 0.5 07/21/2011 Normal [facility] HEMATOLOGY Monocytes # 0.5 K/CMM 0.0 - 0.8 07/21/2011 Normal [facility] HEMATOLOGY Lymphocytes # 1.1 K/CMM 1.0 - 5.5 07/21/2011 Normal [facility] HEMATOLOGY Segs-Bands # 2.2 K/CMM 1.5 - 8.1 07/21/2011 Normal [facility] HEMATOLOGY Basophils 0.5 % 0.0 - 1.0 07/21/2011 Normal [facility] HEMATOLOGY Eosinophils 4.4 % 0.0 - 4.0 07/21/2011 [facility] HEMATOLOGY Monocytes 11.5 % 2.0 - 12.0 07/21/2011 Normal [facility] HEMATOLOGY Lymphocytes 28.2 % 20.0 - 40.0 07/21/2011 Normal [facility] HEMATOLOGY Segs 55.4 % 45.0 - 75.0 07/21/2011 Normal [facility] Vital Signs Vital Sign Value Date Comments Source Weight 133 02/20/2018 Enayet Rahim Height 62 02/20/2018 Enayet Rahim Temperature Oral (F) 98.0 F 02/20/2018 Enayet Rahim Diastolic (mm Hg) 78 02/20/2018 Enayet Rahim Systolic (mm Hg) 146 02/20/2018 Enayet Rahim Weight 132 02/03/2018 Enayet Rahim Height 62 02/03/2018 Enayet Rahim Temperature Oral (F) 98.8 F 02/03/2018 Enayet Rahim Diastolic (mm Hg) 79 02/03/2018 Enayet Rahim Systolic (mm Hg) 153 02/03/2018 Enayet Rahim Weight 130.5 12/23/2017 Enayet Rahim Height 62 12/23/2017 Enayet Rahim Temperature Oral (F) 98.8 F 12/23/2017 Enayet Rahim Diastolic (mm Hg) 83 12/23/2017 Enayet Rahim Systolic (mm Hg) 160 12/23/2017 Enayet Rahim Weight 130 10/28/2017 Enayet Rahim Height 62 10/28/2017 Enayet Rahim Temperature Oral (F) 97.6 F 10/28/2017 Enayet Rahim Diastolic (mm Hg) 76 10/28/2017 Enayet Rahim Systolic (mm Hg) 144 10/28/2017 Enayet Rahim Weight 131 10/13/2017 Enayet Rahim Height 62 10/13/2017 Enayet Rahim Temperature Oral (F) 97.9 F 10/13/2017 Enayet Rahim Diastolic (mm Hg) 88 10/13/2017 Enayet Rahim Systolic (mm Hg) 154 10/13/2017 Enayet Rahim Weight 132 08/28/2017 Enayet Rahim Height 62 08/28/2017 Enayet Rahim Temperature Oral (F) 98.3 F 08/28/2017 Enayet Rahim Diastolic (mm Hg) 81 08/28/2017 Enayet Rahim Systolic (mm Hg) 145 08/28/2017 Enayet Rahim Weight 134 07/29/2017 Enayet Rahim Height 62 07/29/2017 Enayet Rahim Temperature Oral (F) 98.6 F 07/29/2017 Enayet Rahim Diastolic (mm Hg) 98 07/29/2017 Enayet Rahim Systolic (mm Hg) 174 07/29/2017 Enayet Rahim Weight 134 06/24/2017 Enayet Rahim Height 62 06/24/2017 Enayet Rahim Temperature Oral (F) 98.4 F 06/24/2017 Enayet Rahim Diastolic (mm Hg) 95 06/24/2017 Enayet Rahim Systolic (mm Hg) 157 06/24/2017 Enayet Rahim Weight 134 05/09/2017 Enayet Rahim Height 62 05/09/2017 Enayet Rahim Temperature Oral (F) 98.3 F 05/09/2017 Enayet Rahim Diastolic (mm Hg) 106 05/09/2017 Enayet Rahim Systolic (mm Hg) 185 05/09/2017 Enayet Rahim Weight 136.5 01/20/2017 Enayet Rahim Height 62 01/20/2017 Enayet Rahim Temperature Oral (F) 97.9 F 01/20/2017 Enayet Rahim Diastolic (mm Hg) 98 01/20/2017 Enayet Rahim Systolic (mm Hg) 169 01/20/2017 Enayet Rahim Weight 137 12/16/2016 Enayet Rahim Height 62 12/16/2016 Enayet Rahim Temperature Oral (F) 97.8 F 12/16/2016 Enayet Rahim Diastolic (mm Hg) 109 12/16/2016 Enayet Rahim Systolic (mm Hg) 189 12/16/2016 Enayet Rahim Weight 139 11/21/2016 Enayet Rahim Height 62 11/21/2016 Enayet Rahim Temperature Oral (F) 97.2 F 11/21/2016 Enayet Rahim Diastolic (mm Hg) 95 11/21/2016 Enayet Rahim Systolic (mm Hg) 172 11/21/2016 Enayet Rahim Weight 140 11/08/2016 Enayet Rahim Height 62 11/08/2016 Enayet Rahim Temperature Oral (F) 96.8 F 11/08/2016 Enayet Rahim Diastolic (mm Hg) 107 11/08/2016 Enayet Rahim Systolic (mm Hg) 178 11/08/2016 Enayet Rahim Weight 136 09/19/2016 Enayet Rahim Height 62 09/19/2016 Enayet Rahim Temperature Oral (F) 98.5 F 09/19/2016 Enayet Rahim Diastolic (mm Hg) 86 09/19/2016 Enayet Rahim Systolic (mm Hg) 147 09/19/2016 Enayet Rahim Weight 136 08/05/2016 Enayet Rahim Height 62 08/05/2016 Enayet Rahim Temperature Oral (F) 97.7 F 08/05/2016 Enayet Rahim Diastolic (mm Hg) 88 08/05/2016 Enayet Rahim Systolic (mm Hg) 147 08/05/2016 Enayet Rahim Weight 135 07/08/2016 Enayet Rahim Height 62 07/08/2016 Enayet Rahim Temperature Oral (F) 97.3 F 07/08/2016 Enayet Rahim Diastolic (mm Hg) 81 07/08/2016 Enayet Rahim Systolic (mm Hg) 143 07/08/2016 Enayet Rahim Weight 132 06/26/2016 Enayet Rahim Height 62 06/26/2016 Enayet Rahim Temperature Oral (F) 98.0 F 06/26/2016 Enayet Rahim Diastolic (mm Hg) 93 06/26/2016 Enayet Rahim Systolic (mm Hg) 155 06/26/2016 Enayet Rahim Weight 137 04/22/2016 Enayet Rahim Height 62 04/22/2016 Enayet Rahim Temperature Oral (F) 97.1 F 04/22/2016 Enayet Rahim Diastolic (mm Hg) 79 04/22/2016 Enayet Rahim Systolic (mm Hg) 160 04/22/2016 Enayet Rahim Weight 138 04/09/2016 Enayet Rahim Height 62 04/09/2016 Enayet Rahim Temperature Oral (F) 98.6 F 04/09/2016 Enayet Rahim Diastolic (mm Hg) 69 04/09/2016 Enayet Rahim Systolic (mm Hg) 121 04/09/2016 Enayet Rahim Weight 135 02/20/2016 Enayet Rahim Height 62 02/20/2016 Enayet Rahim Temperature Oral (F) 97.3 F 02/20/2016 Enayet Rahim Diastolic (mm Hg) 94 02/20/2016 Enayet Rahim Systolic (mm Hg) 163 02/20/2016 Enayet Rahim Weight 132 02/02/2016 Enayet Rahim Height 62 02/02/2016 Enayet Rahim Temperature Oral (F) 97.2 F 02/02/2016 Enayet Rahim Diastolic (mm Hg) 98 02/02/2016 Enayet Rahim Systolic (mm Hg) 169 02/02/2016 Enayet Rahim Weight 132 12/21/2015 Enayet Rahim Height 62 12/21/2015 Enayet Rahim Temperature Oral (F) 97.4 F 12/21/2015 Enayet Rahim Diastolic (mm Hg) 91 12/21/2015 Enayet Rahim Systolic (mm Hg) 155 12/21/2015 Enayet Rahim Weight 135 11/09/2015 Enayet Rahim Height 62 11/09/2015 Enayet Rahim Temperature Oral (F) 98.6 F 11/09/2015 Enayet Rahim Diastolic (mm Hg) 96 11/09/2015 Enayet Rahim Systolic (mm Hg) 160 11/09/2015 Enayet Rahim Weight 134.5 09/29/2015 Enayet Rahim Height 62 09/29/2015 Enayet Rahim Temperature Oral (F) 97.2 F 09/29/2015 Enayet Rahim Diastolic (mm Hg) 80 09/29/2015 Enayet Rahim Systolic (mm Hg) 140 09/29/2015 Enayet Rahim Weight 140.6 04/20/2015 [id number] Height 62.1 04/20/2015 [id number] Temperature Oral (F) 97.3 F 04/20/2015 [id number] Heart Rate 73 04/20/2015 [id number] Diastolic (mm Hg) 83 04/20/2015 [id number] Systolic (mm Hg) 145 04/20/2015 [id number] Respitory Rate 18 01/06/2015 [facility] Systolic (mm Hg) 152 01/06/2015 [facility] Diastolic (mm Hg) 75 01/06/2015 [facility] Temperature Oral (F) 97.6 F 01/06/2015 [facility] Heart Rate 51 01/06/2015 [facility] Heart Rate 52 01/06/2015 [facility] Temperature Oral (F) 97.5 F 01/06/2015 [facility] Respitory Rate 16 01/06/2015 [facility] Systolic (mm Hg) 154 01/06/2015 [facility] Diastolic (mm Hg) 76 01/06/2015 [facility] Temperature Oral (F) 97.6 F 01/06/2015 [facility] Heart Rate 53 01/06/2015 [facility] Respitory Rate 16 01/06/2015 [facility] Systolic (mm Hg) 152 01/06/2015 [facility] Diastolic (mm Hg) 68 01/06/2015 [facility] Weight 60.455 01/05/2015 [facility] Height 157.48 cm 01/05/2015 [facility] BMI Calculated 24.38 01/05/2015 [facility] Diastolic (mm Hg) 70 07/23/2011 [facility] Respitory Rate 16 07/23/2011 [facility] Heart Rate 59 07/23/2011 [facility] Temperature Oral (F) 97.8 F 07/23/2011 [facility] Systolic (mm Hg) 155 07/23/2011 [facility] Diastolic (mm Hg) 69 07/22/2011 [facility] Respitory Rate 18 07/22/2011 [facility] Systolic (mm Hg) 132 07/22/2011 [facility] Temperature Oral (F) 98.0 F 07/22/2011 [facility] Heart Rate 57 07/22/2011 [facility] Systolic (mm Hg) 141 07/22/2011 [facility] Respitory Rate 18 07/22/2011 [facility] Heart Rate 56 07/22/2011 [facility] Temperature Oral (F) 97.7 F 07/22/2011 [facility] Diastolic (mm Hg) 69 07/22/2011 [facility] Weight 62.273 07/21/2011 [facility] Height 157.48 cm 07/21/2011 [facility] Encounters Location Location Details Encounter Type Encounter Number Reason For Visit Attending Provider ADM Date DC Date Status Source [facility] OU [id number] CHEST PAIN PALUR KATHERINE 07/21/2011 07/22/2011 Active [facility] Unknown [id number] 12/19/2014 12/19/2014 [facility] Unknown [id number] 12/19/2014 [facility]19[facility] [id number] 12/19/2014 12/19/2014 [facility] Unknown [id number] 12/19/2014 12/19/2014 [facility] Unknown [id number] 12/19/2014 12/19/2014 [facility] Unknown [id number] 12/19/2014 12/19/2014 [facility] Unknown [id number] 12/19/2014 12/19/2014 [facility] Unknown [id number] 12/19/2014 12/19/2014 [facility] Unknown [id number] 12/19/2014 12/19/2014 [facility] Unknown [id number] 12/19/2014 12/19/2014 [id number] [facility] Unknown [id number] 12/19/2014 12/19/2014 [facility] OBS Observation Patient [id number] Lavellpranav Veras 01/05/2015 01/06/2015 [facility] Annual Physical [id number] 01/12/2015 01/12/2015 [facility] Annual Physical [id number] 01/12/2015 01/12/2015 [facility] Annual Physical [id number] 01/12/2015 01/12/2015 [facility] Annual Physical [id number] 01/12/2015 01/12/2015 [facility] Annual Physical [id number] 01/12/2015 01/12/2015 [facility] Annual Physical [id number] 01/12/2015 01/12/2015 [facility] Annual Physical [id number] 01/12/2015 01/12/2015 [facility] Annual Physical [id number] 01/12/2015 01/12/2015 [facility] Annual Physical [id number] 01/12/2015 01/12/2015 [facility] Annual Physical [id number] 01/12/2015 01/12/2015 [id number] [facility] Annual Physical [id number] 01/12/2015 01/12/2015 [facility] Unknown [id number] 01/20/2015 01/20/2015 [facility] Unknown [id number] 01/20/2015 01/20/2015 [facility] Hi [facility] Unknown [id number] 01/20/2015 01/20/2015 [facility] Hi [facility] Unknown [id number] 01/20/2015 01/20/2015 [facility] Hi [facility] Unknown [id number] 01/20/2015 01/20/2015 [facility] Hi [facility] Unknown [id number] 01/20/2015 01/20/2015 [facility] Hi [facility] Unknown [id number] 01/20/2015 01/20/2015 [facility] Hi [facility] Unknown [id number] 01/20/2015 01/20/2015 [facility] Hi [facility] Unknown [id number] 01/20/2015 01/20/2015 Lud[facility] Hi [facility] Unknown [id number] 01/20/2015 01/20/2015 2.16.840.1.530390.4.391.11.35317 [facility] Unknown [id number] 01/20/2015 01/20/2015 Ludwin Hi [facility] refills [id number] 01/30/2015 01/30/2015 [facility] refills [id number] 01/30/2015 01/30/2015 [facility] [id number] 01/30/2015 01/30/2015 [facility] refills [id number] 01/30/2015 01/30/2015 [facility] refills [id number] 01/30/2015 01/30/2015 [facility] refills [id number] 01/30/2015 01/30/2015 [facility] refills [id number] 01/30/2015 01/30/2015 [facility] refills [id number] 01/30/2015 01/30/2015 [facility] refills [id number] 01/30/2015 01/30/2015 [facility] refills [id number] 01/30/2015 01/30/2015 [id number] [facility] refills [id number] 01/30/2015 01/30/2015 [facility] Unknown [id number] 03/08/2015 03/08/2015 [facility] Unknown [id number] 03/08/2015 03/08/2015 [facility] Unknown [id number] 03/08/2015 03/08/2015 [facility] Hi [facility] Unknown [id number] 03/08/2015 03/08/2015 [facility] Unknown [id number] 03/08/2015 03/08/2015 [facility] Unknown [id number] 03/08/2015 03/08/2015 [facility] Unknown [id number] 03/08/2015 03/08/2015 [facility] [id number] 03/08/2015 03/08/2015 [facility] Hi [facility] Unknown [id number] 03/08/2015 03/08/2015 [facility] Unknown [id number] 03/08/2015 03/08/2015 [id number] [facility] Unknown [id number] 03/08/2015 03/08/2015 [facility] Unknown [id number] 04/20/2015 04/20/2015 Ludwin Hi [facility] Unknown [id number] 04/20/2015 04/20/2015 [facility] Unknown [id number] 04/20/2015 04/20/2015 [facility] Unknown [id number] 04/20/2015 04/20/2015 [facility] [id number] 04/20/2015 04/20/2015 [facility] Unknown [id number] 04/20/2015 04/20/2015 [facility] Unknown [id number] 04/20/2015 04/20/2015 [facility] [id number] 04/20/2015 04/20/2015 [facility] [id number] 04/20/2015 04/20/2015 [facility] Unknown [id number] 04/20/2015 04/20/2015 [id number] [facility] Unknown [id number] 04/20/2015 04/20/2015 [facility] Sick Visit [id number] 09/29/2015 09/29/2015 [facility] Sick Visit [id number] 09/29/2015 09/29/2015 [facility] S[facility] Visit [id number] 09/29/2015 09/29/2015 [facility] Sick Visit [id number] 09/29/2015 09/29/2015 [facility] Sick Visit [id number] 09/29/2015 09/29/2015 [facility] Sick Visit [id number] 09/29/2015 09/29/2015 [facility] Sick Visit [id number] 09/29/2015 09/29/2015 [facility] Sick Visit [id number] 09/29/2015 09/29/2015 [facility] Sick Visit [id number] 09/29/2015 09/29/2015 [facility] S[facility] Visit [id number] 09/29/2015 09/29/2015 [facility] Unknown [id number] 10/23/2015 10/23/2015 [facility] Unknown [id number] 10/23/2015 10/23/2015 [facility] Unknown [id number] 10/23/2015 10/23/2015 [facility] Unknown [id number] 10/23/2015 10/23/2015 [facility] Unknown [id number] 10/23/2015 10/23/2015 [facility] Unknown [id number] 10/23/2015 10/23/2015 [facility] Unknown [id number] 10/23/2015 10/23/2015 [facility] Unknown [id number] 10/23/2015 10/23/2015 [facility] Unknown [id number] 10/23/2015 10/23/2015 [facility] REFILLS [id number] 11/09/2015 11/09/2015 [facility] REFILLS [id number] 11/09/2015 11/09/2015 [facility] REFILLS [id number] 11/09/2015 11/09/2015 [facility] REFILLS [id number] 11/09/2015 11/09/2015 [facility] Hi [facility] REFILLS [id number] 11/09/2015 11/09/2015 [facility] REFILLS [id number] 11/09/2015 11/09/2015 [facility] REFILLS [id number] 11/09/2015 11/09/2015 Lud[facility] Hi [facility], [facility] REFILLS [id number] 11/09/2015 11/09/2015 Ludwin Hi MD, [facility] referral/DR. Coleman Only [id number] 12/21/2015 12/21/2015 [facility] Hi MD, [facility] referral/DR. Coleman Only [id number] 12/21/2015 12/21/2015 [facility] Hi MD, [facility] referral/DR. Coleman Only [id number] 12/21/2015 12/21/2015 [facility] Hi MD, [facility] referral/DR. Coleman Only [id number] 12/21/2015 12/21/2015 [facility] Hi MD, [facility] referral/DR. Coleman Only [id number] 12/21/2015 12/21/2015 [facility] MD, [facility] referral/DR. Coleman Only [id number] 12/21/2015 12/21/2015 [facility] Hi MD, [facility] referral/DR. Coleman Only [id number] 12/21/2015 12/21/2015 [facility] Hi MD, [facility] Sick Visit [id number] 02/02/2016 02/02/2016 [facility] Sick Visit [id number] 02/02/2016 02/02/2016 [facility] Sick Visit [id number] 02/02/2016 02/02/2016 [facility] Sick Visit [id number] 02/02/2016 02/02/2016 [facility] Sick Visit [id number] 02/02/2016 02/02/2016 [facility] Sick Visit [id number] 02/02/2016 02/02/2016 [facility], [facility] Sick Visit [id number] 02/20/2016 02/20/2016 [facility] Sick Visit [id number] 02/20/2016 02/20/2016 [facility] Sick Visit [id number] 02/20/2016 02/20/2016 [facility] MD, [facility] Sick Visit [id number] 02/20/2016 02/20/2016 [facility] MD[facility] Sick Visit [id number] 02/20/2016 02/20/2016 [facility] Unknown [id number] 03/27/2016 03/27/2016 [facility] Unknown [id number] 03/27/2016 03/27/2016 [facility] Unknown [id number] 03/27/2016 03/27/2016 [facility] Unknown [id number] 03/27/2016 03/27/2016 [facility] MD, [facility] Sick Visit [id number] 04/09/2016 04/09/2016 [facility] Sick Visit [id number] 04/09/2016 04/09/2016 [facility] Unknown [id number] 04/12/2016 04/12/2016 [facility] Unknown [id number] 04/12/2016 04/12/2016 [facility] Unknown [id number] 04/12/2016 04/12/2016 [facility] MD, [facility] Sick Visit [id number] 04/22/2016 04/22/2016 [facility] Procedures Procedure Code Date Perfomer Comments Source PTCA - Percutaneous transluminal coronary angioplasty [id number] 07/29/2012 [facility] CABG x 4 - Coronary artery bypass grafts x 4 [id number] 04/30/1999 [facility] Cervical and thoracic spine operations [id number] [facility] Hip joint implantation [id number] [facility]
--- OUTSIDE RECORDS SUMMARY | 2018-05-05 06:35 | XMS REPORT ---
Author Author Lidia Coleman [facility] [employer] Address Unknown Phone Unavailable Care Team Providers Care Property Field Adjuster Name Role Phone Lidia Coleman CP Unavailable Allergies, Adverse Reactions, Alerts Substance Reaction Event Type N.K.D.A. 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 Active Problem Left hip pain M25.552 Active Problem Acute tracheobronchitis J20.9 Active Problem Erectile dysfunction, unspecified erectile dysfunction type N52.9 Active Problem Gastroesophageal reflux disease without esophagitis K21.9 Active Problem Angina at rest I20.8 Active Problem chronic back pain 355.9 Active Problem Adjustment disorder with mixed anxiety and depressed mood F43.23 Active Problem Primary osteoarthritis of both hips M16.0 Active Problem Essential (primary) hypertension I10 Active Problem Chronic frontal sinusitis J32.1 Active Problem Anxiety F41.9 Active Problem Benign non-nodular prostatic hyperplasia with lower urinary tract symptoms N40.1 Active Problem Seasonal allergic rhinitis due to pollen J30.1 Active Problem Peripheral neuropathy G62.9 Active Problem CAD (coronary artery disease) I25.10 Active Problem Erectile dysfunction due to arterial insufficiency N52.01 Active Problem BPH (benign prostatic hyperplasia) N40.0 Active Problem H/O heart artery stent Z95.5 Mar 18, 2011 Active Problem Insomnia G47.00 Active Problem HTN (hypertension) I10 Active Problem Carotid stenosis, left I65.22 Active Medications Medication Code System Code Instructions Start Date End Date Status Dosage Aspirin [facility] 00652131837 81 MG Orally Once a day Active 1 tablet Baclofen ND 27857179579 10 MG Orally twice a day (bid) as needed (prn) Active 1 tablet with food or milk Losartan Potassium ND 54369827043 25 MG Orally Once a day Dec 16, 2016 Active 1 tablet Atorvastatin Calcium [facility] 74210291896 40 MG Orally Once a day June 26, 2016 Active 1 tablet Metoprolol Succinate ER [facility] 54794504135 100 Active TAKE 1 TABLET BY MOUTH EVERY DAY Pantoprazole Sodium [facility] 06775234272 40 MG Orally Once a day Active 1 tablet Xanax [facility] 31980453909 0.5 MG Orally Three times a day Active 1 tablet Plavix [facility] 64612620971 75 mg Orally Once a day June 30, 2015 Active 1 tablet Amlodipine Besylate [facility] 61084064612 10 by mouth daily Active take 1 tablet by mouth every day Vital Signs Date/Time: Jan 20, 2017 BMI 24.96 Index Weight 136.5 lbs Height 62 in Temperature 97.9 F Blood Pressure Diastolic 98 mm Hg Blood Pressure Systolic 169 mm Hg Results No Known Results Summary Purpose eClinicalWorks Submission
--- OUTSIDE RECORDS SUMMARY | 2018-05-05 06:35 | XMS REPORT ---
Author Author Lidia Coleman [facility] eClinicalWorks Address Unknown Phone Unavailable Care Team Providers Care Lumber Piler Operator Name Role Phone Lidia Coleman CP Unavailable Allergies, Adverse Reactions, Alerts Substance Reaction Event Type N.K.D.A. Info Not Available Non Drug Allergy Problems Problem Type Condition Code Onset Dates Condition Status Problem Recurrent UTI N39.0 Active Problem Left hip pain M25.552 Active Problem Status post fall Z91.81 Active Problem Benign non-nodular prostatic hyperplasia with lower urinary tract symptoms N40.1 Active Problem Erectile dysfunction due to arterial insufficiency N52.01 Active Problem Seasonal allergic rhinitis due to pollen J30.1 Active Problem Coronary atherosclerosis of [place] coronary artery I25.10 Active Assessment Benign non-nodular prostatic hyperplasia with lower urinary tract symptoms N40.1 Active Problem Angina at rest I20.8 Active Problem Anxiety F41.9 Active Problem Erectile dysfunction, unspecified erectile dysfunction type N52.9 Active Problem Chronic frontal sinusitis J32.1 Active Problem Acute tracheobronchitis J20.9 Active Problem Essential (primary) hypertension I10 Active Problem Insomnia G47.00 Active Problem chronic back pain 355.9 Active Problem Adjustment disorder with mixed anxiety and depressed mood F43.23 Active Problem Carotid stenosis, left I65.22 Active Problem HTN (hypertension) I10 Active Problem BPH (benign prostatic hyperplasia) N40.0 Active Problem H/O heart artery stent Z95.5 Mar 18, 2011 Active Assessment Recurrent UTI (urinary tract infection) N39.0 Active Problem Peripheral neuropathy G62.9 Active Problem CAD (coronary artery disease) I25.10 Active Medications Medication Code System Code Instructions Start Date End Date Status Dosage Metoprolol Succinate ER [facility] 53682545207 100 Active TAKE 1 TABLET BY MOUTH EVERY DAY Losartan Potassium [facility] [address]-62 50 MG Orally Once a day Feb 20, 2016 Active 1 tablet Atorvastatin Calcium [facility] [address]-79 40 MG Orally Once a day June 26, 2016 Active 1 tablet Aspirin [facility] 0[address]27-[address]781 81 MG Orally Once a day Active 1 tablet Plavix [facility] [address]-88 75 mg Orally Once a day June 30, 2015 Active 1 tablet Metoprolol Succinate ER [facility] [address]-12 100 mg Orally Once a day Active 1 tablet Amlodipine Besylate [facility] [address]-44 10 mg Orally Once a day Active 1 tablet Xanax [facility] [address]-04 0.5 MG Orally Three times a day Active 1 tablet Baclofen [facility] [address]-48 10 MG Orally twice a day (bid) Mar 21, 2016 Active 1 tablet with food or milk Tamsulosin HCl [facility] [address]-59 0.4 MG Orally Once a day July 08, 2016 August 07, 2016 Active 1 capsule Flonase [facility] 93596077231 50 MCG/ACT Nasally Once a day Active 1 spray in each nostril Amlodipine Besylate [facility] 77466352075 10 Active TAKE 1 TABLET BY MOUTH EVERY DAY Ciprofloxacin HCl [facility] [address]-55 500 MG Orally Twice a day July 08, 2016 July 18, 2016 Active 1 tablet Vital Signs Date/Time: July 08, 2016 BMI 24.69 Index Weight 135 lbs Height 62 in Temperature 97.3 F Blood Pressure Diastolic 81 mm Hg Blood Pressure Systolic 143 mm Hg Results No Known Results Summary Purpose eClinicalWorks Submission
--- OUTSIDE RECORDS SUMMARY | 2018-05-05 06:36 | XMS REPORT ---
Author Author Lidia Coleman Organization eClinicalWorks Address Unknown Phone Unavailable Care Team Providers Care Body Designer Name Role Phone Lidia Coleman CP Unavailable Allergies No Known Allergies Problems Problem Type Condition Code Onset Dates Condition Status Problem Status post fall Z91.81 Active Problem Coronary atherosclerosis of [place] coronary artery I25.10 Active Problem Left hip pain M25.552 Active Problem Essential (primary) hypertension I10 Active Problem Erectile dysfunction, unspecified erectile dysfunction type N52.9 Active Problem Anxiety F41.9 Active Problem Acute tracheobronchitis J20.9 Active Problem Primary osteoarthritis of both hips M16.0 Active Problem Gastroesophageal reflux disease without esophagitis K21.9 Active Problem Erectile dysfunction due to arterial insufficiency N52.01 Active Problem chronic back pain 355.9 Active Problem 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 Problem Adjustment disorder with mixed anxiety and depressed mood F43.23 Active Problem Seasonal allergic rhinitis due to pollen J30.1 Active Problem Chronic frontal sinusitis J32.1 Active Problem Angina at rest I20.8 Active Problem Benign non-nodular prostatic hyperplasia with lower urinary tract symptoms N40.1 Active Problem CAD (coronary artery disease) I25.10 Active Problem HTN (hypertension) I10 Active Problem BPH (benign prostatic hyperplasia) N40.0 Active Problem Peripheral neuropathy G62.9 Active Problem Insomnia G47.00 Active Problem Recurrent UTI N39.0 Active Problem Carotid stenosis, left I65.22 Active Problem H/O heart artery stent Z95.5 Mar 18, 2011 Active Medications Medication Code System Code Instructions Start Date End Date Status Dosage Xanax [facility] 17957340458 0.5 MG Orally Three times a day Active 1 tablet Results No Known Results Summary Purpose eClinicalWorks Submission
--- OUTSIDE RECORDS SUMMARY | 2018-05-05 06:36 | XMS REPORT ---
Author Author Lidia Coleman [facility] eClinicalWorks Address Unknown Phone Unavailable Care Team Providers Care Speed Belt Sander Name Role Phone Lidia Coleman CP Unavailable Allergies, Adverse Reactions, Alerts Substance Reaction Event Type N.K.D.A. Info Not Available Non Drug Allergy Problems Problem Type Condition Code Onset Dates Condition Status Assessment Adjustment disorder with mixed anxiety and depressed mood F43.23 Active Assessment HTN (hypertension) I10 Active Assessment Erectile dysfunction, unspecified erectile dysfunction type N52.9 Active Assessment Pure hypercholesterolemia E78.00 Active Assessment CAD (coronary artery disease) I25.10 Active Problem Coronary atherosclerosis of [place] coronary artery I25.10 Active Problem Left hip pain M25.552 Active Problem Essential (primary) hypertension I10 Active Problem Erectile dysfunction, unspecified erectile dysfunction type N52.9 Active Problem Adjustment disorder with mixed anxiety and depressed mood F43.23 Active Problem Acute tracheobronchitis J20.9 Active Problem Chronic frontal sinusitis J32.1 Active Problem Anxiety F41.9 Active Problem 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 Problem Primary osteoarthritis of both hips M16.0 Active Problem BPH (benign prostatic hyperplasia) N40.0 Active Problem Erectile dysfunction due to arterial insufficiency N52.01 Active Problem Pure hypercholesterolemia E78.00 Active Problem chronic back pain 355.9 Active Problem Benign non-nodular prostatic hyperplasia with lower urinary tract symptoms N40.1 Active Problem Seasonal allergic rhinitis due to pollen J30.1 Active Problem Gastroesophageal reflux disease without esophagitis K21.9 Active Problem Angina at rest I20.8 Active Problem HTN (hypertension) I10 Active Problem Carotid stenosis, left I65.22 Active Problem Peripheral neuropathy G62.9 Active Problem CAD (coronary artery disease) I25.10 Active Problem Recurrent UTI N39.0 Active Problem Status post fall Z91.81 Active Problem H/O heart artery stent Z95.5 Mar 18, 2011 Active Problem Insomnia G47.00 Active Medications Medication Code System Code Instructions Start Date End Date Status Dosage Aspirin [facility] 57011947229 81 MG Orally Once a day Active 1 tablet Metoprolol Succinate ER [facility] [address]-66 100 po once daily Active TAKE 1 TABLET BY MOUTH EVERY DAY Plavix [facility] 13799034392 75 mg Orally Once a day June 30, 2015 Active 1 tablet Pantoprazole Sodium [facility] 89140885924 40 MG Orally Once a day Active 1 tablet Atorvastatin Calcium [facility] 57980792614 10 mg Orally Once a day July 29, 2017 Active 1 tablet Viagra [facility] 18749268857 100 mg Orally Once a day July 29, 2017 August 28, 2017 Active 1 tablet as needed Atorvastatin Calcium [facility] 42810625031 40 MG Orally Once a day June 26, 2016 Active 1 tablet Losartan Potassium [facility] 00504071145 50 MG Orally Once a day Active 1 tablet Baclofen [facility] 26921895748 10 MG Orally twice a day (bid) as needed (prn) Active 1 tablet with food or milk Xanax [facility] 90082218998 0.5 MG Orally Three times a day Active 1 tablet Amlodipine Besylate [facility] 59252775160 10 by mouth daily Active take 1 tablet by mouth every day Vital Signs Date/Time: July 29, 2017 BMI 24.51 Index Weight 134 lbs Height 62 in Temperature 98.6 F Blood Pressure Diastolic 98 mm Hg Blood Pressure Systolic 174 mm Hg Results No Known Results Summary Purpose eClinicalWorks Submission
--- OUTSIDE RECORDS SUMMARY | 2018-05-05 06:36 | XMS REPORT ---
Author Author Lidia Coleman [facility] eClinicalWorks Address Unknown Phone Unavailable Care Team Providers Care Stove Mechanic Name Role Phone Lidia Coleman Unavailable Allergies, Adverse Reactions, Alerts Substance Reaction Event Type N.K.D.A. Info Not Available Non Drug Allergy Problems Problem Type Condition Code Onset Dates Condition Status Assessment Muscle spasm M62.838 Active Problem CAD (coronary artery disease) I25.10 Active Assessment CAD (coronary artery disease) I25.10 Active Problem Recurrent UTI N39.0 Active Assessment Left arm pain M79.602 Active Problem Status post fall Z91.81 Active [...] esophagitis K21.9 Active Problem Coronary atherosclerosis of [place] coronary artery I25.10 Active Problem Acute tracheobronchitis [...] Instructions Start Date End Date Status Dosage Baclofen [facility] [address]-94 10 MG Orally twice a day (bid) as needed (prn) Nov 21, 2016 Nov 28, 2016 Active 1 tablet with food or milk Pantoprazole Sodium [facility] 72141190579 40 MG Orally Once a day Active 1 tablet Atorvastatin Calcium [facility] [address]-99 40 MG Orally Once a day June 26, 2016 Active 1 tablet Plavix [facility] [address]-50 75 mg Orally Once a day June 30, 2015 Active 1 tablet Metoprolol Succinate ER [facility] 89501526596 100 Active TAKE 1 TABLET BY MOUTH EVERY DAY Amlodipine Besylate [facility] 67409615600 10 by mouth daily Active take 1 tablet by mouth every day Xanax [facility] [address]-57 0.5 MG Orally Three times a day Active 1 tablet Aspirin [facility] 08037-27493 81 MG Orally Once a day Active 1 tablet Vital Signs Date/Time: Nov 21, 2016 BMI 25.42 Index Weight 139 lbs Height 62 in Temperature 97.2 F Blood Pressure Diastolic 95 mm Hg Blood Pressure Systolic 172 mm Hg Results No Known Results Summary Purpose eClinicalWorks Submission
--- OUTSIDE RECORDS SUMMARY | 2018-05-05 06:36 | XMS REPORT ---
Author Author Lidia Coleman [facility] eClinicalWorks Address Unknown Phone Unavailable Care Team Providers Care Perlite Grinder Name Role Phone Lidia Coleman CP Unavailable Allergies, Adverse Reactions, Alerts Substance Reaction Event Type N.K.D.A. Info Not Available Non Drug Allergy Problems Problem Type Condition Code Onset Dates Condition Status Assessment Adjustment disorder with mixed anxiety and depressed mood F43.23 Active Problem Insomnia G47.00 Active Assessment Coronary atherosclerosis of [place] coronary artery I25.10 Active Problem Recurrent UTI N39.0 Active Assessment Essential (primary) hypertension I10 Active Problem Status post fall Z91.81 Active Problem Erectile dysfunction, unspecified erectile dysfunction type N52.9 Active Problem Left hip pain M25.552 Active Problem Angina at rest I20.8 Active Problem Benign non-nodular prostatic hyperplasia with lower urinary tract symptoms N40.1 Active Problem Adjustment disorder with mixed anxiety and depressed mood F43.23 Active Problem Essential (primary) hypertension I10 Active Problem Gastroesophageal reflux disease without esophagitis K21.9 Active Problem Coronary atherosclerosis of [place] coronary artery I25.10 Active Problem Anxiety F41.9 Active Problem Acute tracheobronchitis J20.9 Active Problem Seasonal allergic rhinitis due to pollen J30.1 Active Problem Chronic frontal sinusitis J32.1 Active Problem BPH (benign prostatic hyperplasia) N40.0 Active Problem Peripheral neuropathy G62.9 Active Problem chronic back pain 355.9 Active Problem Erectile dysfunction due to arterial insufficiency N52.01 Active Problem Carotid stenosis, left I65.22 Active Problem H/O heart artery stent Z95.5 Mar 18, 2011 Active Problem CAD (coronary artery disease) I25.10 Active Problem HTN (hypertension) I10 Active Medications Medication Code System Code Instructions Start Date End Date Status Dosage Pantoprazole Sodium [place] 20975087715 40 MG Orally Once a day Active 1 tablet Baclofen [place] 86603761662 10 MG Orally twice a day (bid) as needed (prn) Active 1 tablet with food or milk Amlodipine Besylate [facility] 52066592018 10 by mouth daily Active take 1 tablet by mouth every day Atorvastatin Calcium [facility] 38678614949 40 MG Orally Once a day June 26, 2016 Active 1 tablet Losartan Potassium [facility] 13762257970 25 MG Orally Once a day Dec 16, 2016 Active 1 tablet Plavix [facility] 80199770910 75 mg Orally Once a day June 30, 2015 Active 1 tablet Aspirin [facility] 80182339866 81 MG Orally Once a day Active 1 tablet Metoprolol Succinate ER [facility] 79196634990 100 Active TAKE 1 TABLET BY MOUTH EVERY DAY Xanax [facility] 10923292964 0.5 MG Orally Three times a day Active 1 tablet Vital Signs Date/Time: Dec 16, 2016 BMI 25.05 Index Weight 137 lbs Height 62 in Temperature 97.8 F Blood Pressure Diastolic 109 mm Hg Blood Pressure Systolic 189 mm Hg Results No Known Results Summary Purpose eClinicalWorks Submission
--- OUTSIDE RECORDS SUMMARY | 2018-05-05 06:36 | XMS REPORT ---
Author Author Lidia Coleman [facility] eClinicalWorks Address Unknown Phone Unavailable Care Team Providers Care Breast Worker Name Role Phone Lidia Coleman CP Unavailable Allergies, Adverse Reactions, Alerts Substance Reaction Event Type N.K.D.A. Info Not Available Non Drug Allergy Problems Problem Type Condition Code Onset Dates Condition Status Assessment Coronary atherosclerosis of [place] coronary artery I25.10 Active Assessment Essential (primary) hypertension I10 Active Problem CAD (coronary artery disease) I25.10 [...] esophagitis K21.9 Active Problem Coronary atherosclerosis of [place] coronary artery I25.10 Active Problem Acute tracheobronchitis [...] Date End Date Status Dosage Pantoprazole Sodium [facility] 02187063347 40 MG Orally Once a day Active 1 tablet Xanax [facility] [address]-85 0.5 MG Orally Three times a day Active 1 tablet Aspirin [facility] 90661-22942 81 MG Orally Once a day Active 1 tablet Plavix [facility] [address]-45 75 mg Orally Once a day June 30, 2015 Active 1 tablet Atorvastatin Calcium [facility] [address]-00 40 MG Orally Once a day June 26, 2016 Active 1 tablet Amlodipine Besylate [facility] 85359088959 10 by mouth daily Active take 1 tablet by mouth every day Metoprolol Succinate ER [facility] 65093894413 100 Orally Once a day Active take 1 tablet by mouth every day Vital Signs Date/Time: Nov 08, 2016 BMI 25.60 Index Weight 140 lbs Height 62 in Temperature 96.8 F Blood Pressure Diastolic 107 mm Hg Blood Pressure Systolic 178 mm Hg Results No Known Results Summary Purpose eClinicalWorks Submission
--- OUTSIDE RECORDS SUMMARY | 2018-05-05 06:36 | XMS REPORT ---
Author Author Lidia Coleman Organization eClinicalWorks Address Unknown Phone Unavailable Care Team Providers Care Roper Operator Name Role Phone Lidia Coleman CP Unavailable Allergies, Adverse Reactions, Alerts Substance Reaction Event Type N.K.D.A. Info Not Available Non Drug Allergy Problems Problem Type Condition Code Onset Dates Condition Status Assessment Left hip pain M25.552 Active Problem Coronary atherosclerosis of [place] coronary artery I25.10 Active Problem Left hip [...] Instructions Start Date End Date Status Dosage Naproxen NDC 0 Active not defined Atorvastatin Calcium ND 19009700106 10 mg Orally Once a day July 29, 2017 Active 1 tablet Plavix NDC 06324733645 75 mg Orally Once a day June 30, 2015 Active 1 tablet Atorvastatin Calcium [place] 99471752643 40 MG Orally Once a day June 26, 2016 Active 1 tablet Aspirin [facility] 82604045672 81 MG Orally Once a day Active 1 tablet Losartan Potassium [facility] 17972531518 50 MG Orally Once a day Active 1 tablet Metoprolol Succinate ER [facility] [address]-59 100 po once daily Active TAKE 1 TABLET BY MOUTH EVERY DAY Xanax [facility] 76509854154 0.5 MG Orally Three times a day Active 1 tablet Pantoprazole Sodium [facility] 79508302198 40 MG Orally Once a day Active 1 tablet Baclofen [facility] 91774808568 10 MG Orally twice a day (bid) as needed (prn) Active 1 tablet with food or milk Tylenol/Codeine #3 [facility] 62255666930 300-30 MG Orally every 12 hrs October 13, 2017 Oct 20, 2017 Active 1 tablet as needed Amlodipine Besylate [facility] 61687211030 10 by mouth daily Active take 1 tablet by mouth every day Vital Signs Date/Time: October 13, 2017 BMI 23.96 Index Weight 131 lbs Height 62 in Temperature 97.9 F Blood Pressure Diastolic 88 mm Hg Blood Pressure Systolic 154 mm Hg Results No Known Results Summary Purpose eClinicalWorks Submission
--- OUTSIDE RECORDS SUMMARY | 2018-05-05 06:36 | XMS REPORT ---
Author Author Lidia Coleman [facility] eClinicalWorks Address Unknown Phone Unavailable Care Team Providers Care Product Development Engineer Name Role Phone Lidia Coleman CP Unavailable Allergies, Adverse Reactions, Alerts Substance Reaction Event Type N.K.D.A. Info Not Available Non Drug Allergy Problems Problem Type Condition Code Onset Dates Condition Status Assessment Benign non-nodular prostatic hyperplasia with lower urinary tract symptoms N40.1 Active Assessment Seasonal allergic rhinitis due to pollen J30.1 Active Assessment Gastroesophageal reflux disease without esophagitis K21.9 Active Assessment Anxiety F41.9 Active Assessment Carotid stenosis, left I65.22 Active Assessment H/O heart artery stent Z95.5 Active Assessment Erectile dysfunction due to arterial insufficiency N52.01 Active Assessment Adjustment disorder with mixed anxiety and depressed mood 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 Active Problem CAD (coronary artery disease) I25.10 Active Assessment Essential (primary) hypertension I10 Active Problem Recurrent UTI N39.0 Active Assessment Annual physical exam Z00.00 Active Problem Status post fall Z91.81 Active [...] esophagitis K21.9 Active Problem Coronary atherosclerosis of [place] coronary artery I25.10 Active Problem Acute tracheobronchitis [...] Date End Date Status Dosage Ciprofloxacin HCl [facility] [address]-12 500 MG Orally Twice a day Active 1 tablet Pantoprazole Sodium [facility] 62178327842 40 MG Orally Once a day Active 1 tablet Atorvastatin Calcium [facility] [address]-80 40 MG Orally Once a day June 26, 2016 Active 1 tablet Baclofen [facility] [address]-18 10 MG Orally twice a day (bid) Mar 21, 2016 Active 1 tablet with food or milk Xanax [facility] [address]-19 0.5 MG Orally Three times a day Active 1 tablet Metoprolol Succinate ER [facility] [address]-43 100 mg Orally Once a day Active 1 tablet Fexofenadine HCl [facility] [address]-20 60 MG Orally daily August 05, 2016 Dec 03, 2016 Active 1 tablet as needed Tamsulosin HCl [facility] 01287221697 0.4 MG Orally Once a day Active 1 capsule Flonase [facility] 66624041625 50 MCG/ACT Nasally Once a day Active 1 spray in each nostril Losartan Potassium [facility] [address]-11 50 MG Orally Once a day Feb 20, 2016 Active 1 tablet Cialis [facility] [address]-63 2.5 MG Orally Once a day September 19, 2016 Dec 18, 2016 Active 1 tablet Metoprolol Succinate ER [facility] 13008668262 100 Active TAKE 1 TABLET BY MOUTH EVERY DAY Plavix [facility] [address]-46 75 mg Orally Once a day June 30, 2015 Active 1 tablet Pantoprazole Sodium [facility] [address]-14 40 MG Orally Once a day August 05, 2016 Active 1 tablet Amlodipine Besylate [facility] [address]-43 10 mg Orally Once a day Active 1 tablet Amlodipine Besylate [facility] 56163641536 10 Active TAKE 1 TABLET BY MOUTH EVERY DAY Aspirin [facility] 09321-34852 81 MG Orally Once a day Active 1 tablet Vital Signs Date/Time: September 19, 2016 BMI 24.87 Index Weight 136 lbs Height 62 in Temperature 98.5 F Blood Pressure Diastolic 86 mm Hg Blood Pressure Systolic 147 mm Hg Results No Known Results Summary Purpose eClinicalWorks Submission
--- OUTSIDE RECORDS SUMMARY | 2018-05-05 06:36 | XMS REPORT ---
Author Author Lidia Coleman Organization eClinicalWorks Address Unknown Phone Unavailable Care Team Providers Care Python Developer Name Role Phone Lidia Coleman CP Unavailable Allergies, Adverse Reactions, Alerts Substance Reaction Event Type N.K.D.A. Info Not Available Non Drug Allergy Problems Problem Type Condition Code Onset Dates Condition Status Assessment Allergic conjunctivitis of both eyes H10.13 Active Assessment Anxiety F41.9 Active Problem Coronary atherosclerosis of [place] coronary artery I25.10 Active Problem Left hip [...] Start Date End Date Status Dosage Xanax [facility] 44848883803 0.5 MG Orally bid Active 1 tablet Metoprolol Succinate ER [facility] [address]-78 100 po once daily Active TAKE 1 TABLET BY MOUTH EVERY DAY Atorvastatin Calcium [facility] 19539338046 40 MG Orally Once a day June 26, 2016 Active 1 tablet Naproxen NDC 0 Active not defined Losartan Potassium ND 10004150477 50 MG Orally Once a day Active 1 tablet Pantoprazole Sodium [facility] 49210434541 40 MG Orally Once a day Active 1 tablet Amlodipine Besylate [facility] 72928381676 10 by mouth daily Active take 1 tablet by mouth every day Plavix [facility] 68063506715 75 mg Orally Once a day June 30, 2015 Active 1 tablet Baclofen [facility] 40462280411 10 MG Orally twice a day (bid) as needed (prn) Active 1 tablet with food or milk Olopatadine HCl [facility] 25079131688 0.2 % Ophthalmic bid Oct 28, 2017 Active as directed Aspirin [facility] 94157757280 81 MG Orally Once a day Active 1 tablet Atorvastatin Calcium [facility] 42016371637 10 mg Orally Once a day July 29, 2017 Active 1 tablet Vital Signs Date/Time: Oct 28, 2017 BMI 23.77 Index Weight 130 lbs Height 62 in Temperature 97.6 F Blood Pressure Diastolic 76 mm Hg Blood Pressure Systolic 144 mm Hg Results No Known Results Summary Purpose eClinicalWorks Submission
--- OUTSIDE RECORDS SUMMARY | 2018-05-05 06:36 | XMS REPORT ---
Author Author Lidia Coleman Organization [employer] Address Unknown Phone Unavailable Care Team Providers Care Veneer Measurer Name Role Phone Lidia Coleman CP Unavailable Allergies No Known Allergies Problems Problem Type Condition Code Onset Dates Condition Status Problem Coronary atherosclerosis of [place] coronary artery I25.10 Active Problem Left hip [...] Date End Date Status Dosage Pantoprazole Sodium [facility] [address]-43 40 mg Orally Once a day Active 1 tablet Results No Known Results Summary Purpose eClinicalWorks Submission
--- OUTSIDE RECORDS SUMMARY | 2018-05-05 06:36 | XMS REPORT ---
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 Active Problem chronic back pain 355.9 Active Problem Essential (primary) hypertension I10 Active Problem Anxiety F41.9 Active Problem Erectile dysfunction due to arterial insufficiency N52.01 Active Problem Seasonal allergic rhinitis due to pollen J30.1 Active Problem BPH (benign prostatic hyperplasia) N40.0 Active Problem Chronic frontal sinusitis J32.1 Active Problem Angina at rest I20.8 Active Problem Benign non-nodular prostatic hyperplasia with lower urinary tract symptoms N40.1 Active Problem Atherosclerotic heart disease of [place] coronary artery without angina pectoris I25.10 Active Problem Lumbago with sciatica, right side M54.41 Active Problem HTN (hypertension) I10 Active Problem CAD (coronary artery disease) I25.10 Active Problem Other chronic pain G89.29 Active Problem Peripheral neuropathy G62.9 Active Problem Primary osteoarthritis of both hips M16.0 Active Problem Gastroesophageal reflux disease without esophagitis K21.9 Active Problem Pure hypercholesterolemia E78.00 Active Problem 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 Problem Insomnia G47.00 Active Problem Recurrent UTI N39.0 Active Problem Carotid stenosis, left I65.22 Active Problem H/O heart artery stent Z95.5 Mar 18, 2011 Active Problem Acute tracheobronchitis J20.9 Active Problem Erectile dysfunction, unspecified erectile dysfunction type N52.9 Active Problem Left hip pain M25.552 Active Problem Status post fall Z91.81 Active Medications Medication Code System Code Instructions Start Date End Date Status Dosage Amlodipine Besylate [facility] 60701794996 10 by mouth daily Active take 1 tablet by mouth every day Results No Known Results Summary Purpose eClinicalWorks Submission
--- OUTSIDE RECORDS SUMMARY | 2018-05-05 06:36 | XMS REPORT ---
Author Author Lidia Coleman Organization [employer] Address Unknown Phone Unavailable Care Team Providers Care Plastic Surgery Nurse Name Role Phone Lidia Coleman CP Unavailable Allergies, Adverse Reactions, Alerts Substance Reaction Event Type N.K.D.A. Info Not Available Non Drug Allergy Problems Problem Type Condition Code Onset Dates Condition Status Assessment Tooth infection K04.7 Active Assessment Anxiety F41.9 Active Assessment Hyperglycemia R73.9 Active Assessment Frequent urination at night R35.1 Active Problem Coronary atherosclerosis of [place] coronary artery I25.10 Active Problem Left hip [...] Start Date End Date Status Dosage Xanax [facility] 90165907195 0.5 MG Orally Three times a day Active 1 tablet Baclofen [facility] 33669598271 10 MG Orally twice a day (bid) as needed (prn) Active 1 tablet with food or milk Amlodipine Besylate [facility] 71339204232 10 by mouth daily Active take 1 tablet by mouth every day Amoxicillin [facility] 14145164061 500 MG Orally every 12 hrs August 28, 2017 September 07, 2017 Active 1 tablet Viagra [facility] 78621292686 100 mg Orally Once a day July 29, 2017 August 28, 2017 Active 1 tablet as needed Losartan Potassium [facility] 17117354629 50 MG Orally Once a day Active 1 tablet Aspirin [facility] 27484634820 81 MG Orally Once a day Active 1 tablet Metoprolol Succinate ER [facility] [address]-30 100 po once daily Active TAKE 1 TABLET BY MOUTH EVERY DAY Naproxen [facility] 0 Active not defined Plavix [facility] 71273136502 75 mg Orally Once a day June 30, 2015 Active 1 tablet Pantoprazole Sodium [facility] 85958387967 40 MG Orally Once a day Active 1 tablet Atorvastatin Calcium [facility] 70900339018 10 mg Orally Once a day July 29, 2017 Active 1 tablet Atorvastatin Calcium [facility] 07669798332 40 MG Orally Once a day June 26, 2016 Active 1 tablet Vital Signs Date/Time: August 28, 2017 BMI 24.14 Index Weight 132 lbs Height 62 in Temperature 98.3 F Blood Pressure Diastolic 81 mm Hg Blood Pressure Systolic 145 mm Hg Results Name Result Date Reference Range Unit Abnormality Flag HEMOGLOBIN A1c ----HEMOGLOBIN A1c 5.8 [id number] <5.7 % of total Hgb H PSA, TOTAL ----PSA, TOTAL 2.7 [id number] < OR=4.0 ng/mL N Summary Purpose eClinicalWorks Submission
--- OUTSIDE RECORDS SUMMARY | 2018-05-05 06:36 | XMS REPORT ---
Author Author Lidia Coleman [facility] eClinicalWorks Address Unknown Phone Unavailable Care Team Providers Care Application Programmer Analyst Name Role Phone Lidia Coleman CP Unavailable Allergies, Adverse Reactions, Alerts Substance Reaction Event Type N.K.D.A. 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 Assessment Annual physical exam Z00.00 Active Problem Status post fall Z91.81 Active Problem Coronary atherosclerosis of [place] coronary artery I25.10 Active Problem Left hip [...] Instructions Start Date End Date Status Dosage Atorvastatin Calcium [facility] 65450692676 40 MG Orally Once a day June 26, 2016 Active 1 tablet Plavix [facility] 83870836055 75 mg Orally Once a day June 30, 2015 Active 1 tablet Losartan Potassium [facility] 19590650696 50 MG Orally Once a day Active 1 tablet Metoprolol Succinate ER [facility] 95620758592 100 Active TAKE 1 TABLET BY MOUTH EVERY DAY Aspirin [facility] 77217122078 81 MG Orally Once a day Active 1 tablet PredniSONE [facility] 41479611399 20 mg Orally Once a day June 24, 2017 June 29, 2017 Active 1 tablet Pantoprazole Sodium [facility] 51487135424 40 MG Orally Once a day Active 1 tablet Baclofen [facility] 07530073577 10 MG Orally twice a day (bid) as needed (prn) Active 1 tablet with food or milk Xanax [facility] 45878153681 0.5 MG Orally Three times a day Active 1 tablet Amlodipine Besylate [facility] 36955148105 10 Active TAKE 1 TABLET BY MOUTH EVERY DAY Vital Signs Date/Time: June 24, 2017 BMI 24.51 Index Weight 134 lbs Height 62 in Temperature 98.4 F Blood Pressure Diastolic 95 mm Hg Blood Pressure Systolic 157 mm Hg Results No Known Results Summary Purpose eClinicalWorks Submission
--- OUTSIDE RECORDS SUMMARY | 2018-05-05 06:36 | XMS REPORT ---
Author Author Lidia Coleman Organization [employer]Works Address Unknown Phone Unavailable Care Team Providers Care Cellar Packer Name Role Phone Lidia Coleman Unavailable Allergies, Adverse Reactions, Alerts Substance Reaction Event Type N.K.D.A. Info Not Available Non Drug Allergy Problems Problem Type Condition Code Onset Dates Condition Status Assessment Allergic conjunctivitis of both eyes H10.13 Active Assessment Neck pain on left side M54.2 Active Problem Coronary atherosclerosis of [place] coronary artery I25.10 Active Problem Adjustment disorder [...] N40.1 Active Problem Atherosclerotic heart disease of [place] coronary artery without angina pectoris I25.10 Active [...] Instructions Start Date End Date Status Dosage Olopatadine HCl [facility] 64574938854 0.2 % Ophthalmic bid Oct 28, 2017 Active as directed Amlodipine Besylate [facility] 83026606775 10 by mouth daily Active take 1 tablet by mouth every day Loratadine [facility] 85610499277 10 MG Orally Once a day Feb 03, 2018 May 04, 2018 Active 1 tablet Pantoprazole Sodium [facility] [address]-61 40 mg Orally Once a day Active 1 tablet Xanax [facility] 93250822741 0.5 MG Orally bid Active 1 tablet Losartan Potassium [facility] 20819110706 50 MG Orally Once a day Active 1 tablet Atorvastatin Calcium [facility] 01311345571 10 mg Orally Once a day July 29, 2017 Active 1 tablet Plavix [facility] 93694836719 75 mg Orally Once a day June 30, 2015 Active 1 tablet Baclofen [facility] 90315955333 10 MG Orally twice a day (bid) as needed (prn) Active 1 tablet with food or milk Atorvastatin Calcium [facility] 83935292267 40 MG Orally Once a day June 26, 2016 Active 1 tablet Aspirin [facility] 02121843987 81 MG Orally Once a day Active 1 tablet Metoprolol Succinate ER [facility] 05419367742 100 Active TAKE 1 TABLET BY MOUTH EVERY DAY Naproxen [place] 0 Active not defined Vital Signs Date/Time: Feb 03, 2018 BMI 24.14 Index Weight 132 lbs Height 62 in Temperature 98.8 F Blood Pressure Diastolic 79 mm Hg Blood Pressure Systolic 153 mm Hg Results No Known Results Summary Purpose eClinicalWorks Submission
--- OUTSIDE RECORDS SUMMARY | 2018-05-05 06:36 | XMS REPORT ---
Author Author Lidia Coleman [facility] eClinicalWorks Address Unknown Phone Unavailable Care Team Providers Care Bindery Machine Feeder Offbearer Name Role Phone Lidia Coleman CP Unavailable Allergies, Adverse Reactions, Alerts Substance Reaction Event Type N.K.D.A. Info Not Available Non Drug Allergy Problems Problem Type Condition Code Onset Dates Condition Status Assessment Gastroesophageal reflux disease without esophagitis K21.9 Active Assessment Erectile dysfunction, unspecified erectile dysfunction type N52.9 Active Assessment Primary osteoarthritis of both hips M16.0 Active Assessment CAD (coronary artery disease) I25.10 Active Problem Recurrent UTI N39.0 Active Assessment Essential (primary) hypertension I10 Active Problem Status post fall Z91.81 Active Problem Coronary atherosclerosis of [place] coronary artery I25.10 Active Problem Left hip [...] End Date Status Dosage Metoprolol Succinate ER [facility]NOTE 3] 32261642666 100 Active TAKE 1 TABLET BY MOUTH EVERY DAY Baclofen [facility][NOTE 3] 12624013349 10 MG Orally twice a day (bid) as needed (prn) Active 1 tablet with food or milk Aspirin [facility][NOTE 3] 71094094717 81 MG Orally Once a day Active 1 tablet Amlodipine Besylate [facility]NOTE 3] 63230403488 10 Active TAKE 1 TABLET BY MOUTH EVERY DAY Plavix [facility][NOTE 3] 72794882818 75 mg Orally Once a day June 30, 2015 Active 1 tablet Xanax [facility]NOTE 3] 80596863618 0.5 MG Orally Three times a day Active 1 tablet Losartan Potassium [facility]NOTE 3] 10437111761 50 MG Orally Once a day Dec 16, 2016 Active 1 tablet Pantoprazole Sodium [facility]NOTE 3] 09503075032 40 MG Orally Once a day Active 1 tablet Atorvastatin Calcium [facility]NOTE 3] 88579379073 40 MG Orally Once a day June 26, 2016 Active 1 tablet Vital Signs Date/Time: May 09, 2017 BMI 24.51 Index Weight 134 lbs Height 62 in Temperature 98.3 F Blood Pressure Diastolic 106 mm Hg Blood Pressure Systolic 185 mm Hg Results No Known Results Summary Purpose eClinicalWorks Submission
--- OUTSIDE RECORDS SUMMARY | 2018-05-05 06:37 | XMS REPORT ---
Author Author Lidia Coleman [facility] eClinicalWorks Address Unknown Phone Unavailable Care Team Providers Care Barrel Loader Name Role Phone Lidia Coleman Unavailable Allergies, Adverse Reactions, Alerts Substance Reaction Event Type N.K.D.A. Info Not Available Non Drug Allergy Encounters Encounter Location Date refills [facility] Jan 30, 2015 Unknown [facility] Mar 08, 2015 Unknown [facility] Apr 20, 2015 [place]ick [place] [facility] [place] September 29, 2015 Unknown [facility] Dec 19, 2014 Annual Physical [facility] Jan 12, 2015 Unknown [facility] Jan 20, 2015 Problems Problem Type Condition ICD-9 Code Onset Dates Condition Status Problem Adjustment disorder with mixed anxiety and depressed mood F43.23 Active Problem Insomnia G47.00 Active Problem Essential (primary) hypertension I10 Active Problem CAD (coronary artery disease) I25.10 Active Problem H/O heart artery stent Z95.5 Mar 18, 2011 Active Problem Recurrent UTI N39.0 Active Problem Peripheral neuropathy G62.9 Active Problem BPH (benign prostatic hyperplasia) N40.0 Active Problem HTN (hypertension) I10 Active Problem Carotid stenosis, left I65.22 Active Assessment Recurrent UTI N39.0 Active Assessment CAD (coronary artery disease) I25.10 Active Assessment Essential (primary) hypertension I10 Active Problem Coronary atherosclerosis of [place] coronary artery 414.01 Active Assessment Erectile dysfunction due to arterial insufficiency N52.01 Active Problem Erectile dysfunction due to arterial insufficiency N52.01 Active Assessment Adjustment disorder with mixed anxiety and depressed mood F43.23 Active Problem chronic back pain 355.9 Active Medications Medication Code System Code Instructions Start Date End Date Status Dosage [facility] [address]-40 100 mg Orally Once a day Active 1 tablet Sildenafil Citrate [facility] [address]-64 50 mg Orally Once a day August 23, 2015 September 29, 2015 Inactive 1 tablet as needed Aspirin [facility] [address]559 81 MG Orally Once a day Active 1 tablet Plavix [facility] [address]-16 75 mg Orally Once a day June 30, 2015 Active 1 tablet Xanax [facility] [address]-36 0.5 MG Orally Three times a day Active 1 tablet Lisinopril [facility] [address]-13 2.5 MG Orally Once a day June 30, 2015 Active 1 tablet Amlodipine Besylate [facility] [address]-69 10 mg Orally Once a day Active 1 tablet Tadalafil [facility] [address]-27 5 MG Orally every 24 hrs September 29, 2015 October 09, 2015 Active 1 tablet Nitrofurantoin [facility] [address]-10 50 mg Orally Once a day July 27, 2015 Oct 25, 2015 Active 1 capsule Social History Social History Element Qualifiers Date Reported Tobacco Use: . Are you a: never smoker September 29, 2015 Alcohol Screening: . Points: 0, Interpretation: Negative September 29, 2015 Sexual Hx: . Had sex in the last 12 months (vaginal, oral, or anal)?: Yes, with: Women only, Use protection?: Yes, How often?: All of the time, Prevention Strategies discussed:: Condoms, Have you ever had an STD?: No September 29, 2015 Do you have pets? . Status: No September 29, 2015 Use of recreational / street drugs? . Answer: No September 29, 2015 Marital Status: . September 29, 2015 Caffeine intake? . Status: Yes, What type: Coffee, Soft Drinks September 29, 2015 Do you exercise? . Answer: Yes, Type: walking September 29, 2015 Do you drink alcohol? . Status: Yes, Type: Beer September 29, 2015 Travel outside [place]: . no September 29, 2015 Occupation: . retired September 29, 2015 Vital Signs Date/Time: September 29, 2015 Weight 134.5 lbs Height 62 in Temperature 97.2 F Blood Pressure Diastolic 80 mm Hg Blood Pressure Systolic 140 mm Hg Summary Purpose eClinicalWorks Submission
--- OUTSIDE RECORDS SUMMARY | 2018-05-05 06:37 | XMS REPORT ---
Author Author Lidia Coleman [facility] eClinicalWorks Address Unknown Phone Unavailable Care Team Providers Care Audit Consultant Name Role Phone Lidia Coleman Unavailable Allergies, Adverse Reactions, Alerts Substance Reaction Event Type N.K.D.A. Info Not Available Non Drug Allergy Encounters Encounter Location Date refills [facility] Jan 30, 2015 Unknown [facility] Mar 08, 2015 Unknown [facility] Apr 20, 2015 [place]ick [place] [facility] [place] September 29, 2015 Unknown [facility] Dec 19, 2014 Annual Physical [facility] Jan 12, 2015 Unknown [facility] Jan 20, 2015 Unknown [facility] Oct 23, 2015 [place] [facility] Nov 09, 2015 Problems Problem Type Condition ICD-9 Code Onset Dates Condition Status Problem Insomnia G47.00 Active Problem Peripheral neuropathy G62.9 Active Problem BPH (benign prostatic hyperplasia) N40.0 Active Problem Status post fall Z.81 Active Problem Recurrent UTI N39.0 Active Problem Left hip pain M25.552 Active Problem HTN (hypertension) I10 Active Problem Carotid stenosis, left I65.22 Active Problem CAD (coronary artery disease) I25.10 Active Problem H/O heart artery stent Z95.5 Mar 18, 2011 Active Assessment CAD (coronary artery disease) I25.10 Active Assessment Essential (primary) hypertension I10 Active Assessment Status post fall Z91.81 Active Assessment Adjustment disorder with mixed anxiety and depressed mood F43.23 Active Problem Erectile dysfunction due to arterial insufficiency N52.01 Active Problem chronic back pain 355.9 Active Assessment Left hip pain M25.552 Active Problem Adjustment disorder with mixed anxiety and depressed mood F43.23 Active Problem Coronary atherosclerosis of [place] coronary artery 414.01 Active Problem Essential (primary) hypertension I10 Active Medications Medication Code System Code Instructions Start Date End Date Status Dosage Plavix [facility] [address]-18 75 mg Orally Once a day June 30, 2015 Active 1 tablet Xanax [facility] [address]-77 0.5 MG Orally Three times a day Active 1 tablet Lisinopril [facility] [address]-35 2.5 MG Orally Once a day June 30, 2015 Active 1 tablet Amlodipine Besylate [facility] [address]-42 10 mg Orally Once a day Active 1 tablet Aspirin [facility] 10818-40080 81 MG Orally Once a day Active 1 tablet Acetaminophen-Codeine #3 [facility] [address]-62 300-30 MG Orally three times a day (tid) as needed (prn) Nov 09, 2015 Nov 19, 2015 Active 1 tablet as needed Metoprolol Succinate ER [facility] [address]-53 100 mg Orally Once a day Active 1 tablet Social History Social History Element Qualifiers Date Reported Tobacco Use: . Are you a: never smoker Nov 09, 2015 Alcohol Screening: . Points: 0, Interpretation: Negative Nov 09, 2015 Sexual Hx: . Had sex in the last 12 months (vaginal, oral, or anal)?: Yes, with: Women only, Use protection?: Yes, How often?: All of the time, Prevention Strategies discussed:: Condoms, Have you ever had an STD?: No Nov 09, 2015 Do you have pets? . Status: No Nov 09, 2015 Use of recreational / street drugs? . Answer: No Nov 09, 2015 Marital Status: . Nov 09, 2015 Caffeine intake? . Status: Yes, What type: Coffee, Soft Drinks Nov 09, 2015 Do you exercise? . Answer: Yes, Type: walking Nov 09, 2015 Do you drink alcohol? . Status: Yes, Type: Beer Nov 09, 2015 Travel outside [place]: . no Nov 09, 2015 Occupation: . retired Nov 09, 2015 Vital Signs Date/Time: Nov 09, 2015 Weight 135 lbs Height 62 in Temperature 98.6 F Blood Pressure Diastolic 96 mm Hg Blood Pressure Systolic 160 mm Hg Summary Purpose eClinicalWorks Submission
--- OUTSIDE RECORDS SUMMARY | 2018-05-05 06:37 | XMS REPORT ---
Author [facility] Address Unknown Phone Unavailable Care Team Providers Care Salon Assistant Name Role Phone Unavailable Unavailable Payers Payer Name Policy Type Policy Number Effective Date Expiration Date Problems This patient has no known problems. Allergies, Adverse Reactions, Alerts Allergy Name Allergy Type Status Severity Reaction(s) Onset Date Inactive Date Treating Clinician Comments No Known Allergies DA Active U 2018-01-31 00:00:00 No Known Allergies DA Active U 2017-12-18 00:00:00 No Known Allergies DA Active U 2017-01-30 00:00:00 Medications This patient has no known medications.
--- OUTSIDE RECORDS SUMMARY | 2018-05-05 06:37 | XMS REPORT ---
Author Author Lidia Coleman [facility] [place] eClinicalWorks Address Unknown Phone Unavailable Care Team Providers Care Ladies Locker Room Attendant Name Role Phone Lidia Coleman CP Unavailable Allergies, Adverse Reactions, Alerts Substance Reaction Event Type N.K.D.A. Info Not Available Non Drug Allergy Problems Problem Type Condition Code Onset Dates Condition Status Assessment Anxiety F41.9 Active Assessment Lumbago with sciatica, right side M54.41 Active Assessment Chest pain, unspecified R07.9 Active Assessment Essential (primary) hypertension I10 Active Assessment Atherosclerotic heart disease of [place] coronary artery without angina pectoris I25.10 Active Problem Coronary atherosclerosis of [place] coronary artery I25.10 Active Problem Adjustment disorder [...] N40.1 Active Problem Atherosclerotic heart disease of [place] coronary artery without angina pectoris I25.10 Active [...] foot M10.471 Active Problem Insomnia G47.00 Active Assessment Other chronic pain G89.29 Active Problem Recurrent UTI N39.0 Active Problem Carotid stenosis, left I65.22 Active Problem H/O heart artery stent Z95.5 Mar 18, 2011 Active Problem Acute tracheobronchitis J20.9 Active Problem Erectile dysfunction, unspecified erectile dysfunction type N52.9 Active Problem Left hip pain M25.552 Active Problem Status post fall Z91.81 Active Medications Medication Code System Code Instructions Start Date End Date Status Dosage Metoprolol Succinate ER [facility] 61479978321 100 Active TAKE 1 TABLET BY MOUTH EVERY DAY Naproxen ND 0 Active not defined Losartan Potassium [facility] 23766777206 50 MG Orally Once a day Active 1 tablet Atorvastatin Calcium [facility] 05467125705 10 mg Orally Once a day July 29, 2017 Active 1 tablet Olopatadine HCl [facility] 17535413386 0.2 % Ophthalmic bid Oct 28, 2017 Active as directed Atorvastatin Calcium [facility] 65443699999 40 MG Orally Once a day June 26, 2016 Active 1 tablet Plavix [facility] 44309829015 75 mg Orally Once a day June 30, 2015 Active 1 tablet Aspirin [facility] 42367412502 81 MG Orally Once a day Active 1 tablet Baclofen [facility] 68128707077 10 MG Orally twice a day (bid) as needed (prn) Active 1 tablet with food or milk Amlodipine Besylate [facility] 02609200360 10 by mouth daily Active take 1 tablet by mouth every day Pantoprazole Sodium [facility] [address]-22 40 mg Orally Once a day Active 1 tablet Xanax [facility] 37591500133 0.5 MG Orally bid Active 1 tablet Vital Signs Date/Time: Dec 23, 2017 BMI 23.87 Index Weight 130.5 lbs Height 62 in Temperature 98.8 F Blood Pressure Diastolic 83 mm Hg Blood Pressure Systolic 160 mm Hg Results No Known Results Summary Purpose eClinicalWorks Submission
--- OUTSIDE RECORDS SUMMARY | 2018-05-05 06:37 | XMS REPORT ---
Author Author Lidia Coleman [facility] [place] eClinicalWorks Address Unknown Phone Unavailable Care Team Providers Care Coating Manager Name Role Phone Lidia Coleman Unavailable Encounters Encounter Location Date refills [facility] Jan 30, 2015 Unknown [facility] Mar 08, 2015 Unknown [facility] Apr 20, 2015 Sick Visit [facility] September 29, 2015 Unknown [facility] Dec 19, 2014 Annual Physical [facility] Jan 12, 2015 Unknown [facility] Jan 20, 2015 referral/DR. Coleman Only [facility] Dec 21, 2015 Unknown [facility] Oct 23, 2015 [facility]LLS [facility] Nov 09, 2015 Unknown [facility] Mar 27, 2016 Unknown [facility] Apr 12, 2016 Sick Visit [facility] Feb 02, 2016 Sick Visit [facility] Feb 20, 2016 Problems Problem Type Condition ICD-9 Code Onset Dates Condition Status Problem H/O heart artery stent Z95.5 Mar 18, 2011 Active Problem Recurrent UTI N39.0 Active Problem CAD (coronary artery disease) I25.10 Active Problem Chronic frontal sinusitis J32.1 Active Problem Acute tracheobronchitis J20.9 Active Problem Seasonal allergic rhinitis due to pollen J30.1 Active Problem Left hip pain M25.552 Active Problem Status post fall Z91.81 Active Problem Anxiety F41.9 Active Problem Erectile dysfunction, unspecified erectile dysfunction type N52.9 Active Problem chronic back pain 355.9 Active Problem Adjustment disorder with mixed anxiety and depressed mood F43.23 Active Problem Coronary atherosclerosis of [place] coronary artery I25.10 Active Problem Erectile dysfunction due to arterial insufficiency N52.01 Active Problem BPH (benign prostatic hyperplasia) N40.0 Active Problem Peripheral neuropathy G62.9 Active Problem Essential (primary) hypertension I10 Active Problem Carotid stenosis, left I65.22 Active Problem Insomnia G47.00 Active Problem HTN (hypertension) I10 Active Medications Medication Code System Code Instructions Start Date End Date Status Dosage Xanax [facility] [address]-08 0.5 MG Orally Three times a day Active 1 tablet Social History Social History Element Qualifiers Date Reported Tobacco Use: . Are you a: never smoker Apr 09, 2016 Alcohol Screening: . Points: 0, Interpretation: Negative Apr 09, 2016 Sexual Hx: . Had sex in the last 12 months (vaginal, oral, or anal)?: Yes, with: Women only, Use protection?: Yes, How often?: All of the time, Prevention Strategies discussed:: Condoms, Have you ever had an STD?: No Apr 09, 2016 Do you have pets? . Status: No Apr 09, 2016 Use of recreational / street drugs? . Answer: No Apr 09, 2016 Marital Status: . Apr 09, 2016 Caffeine intake? . Status: Yes, What type: Coffee, Soft Drinks Apr 09, 2016 Do you exercise? . Answer: Yes, Type: walking Apr 09, 2016 Do you drink alcohol? . Status: Yes, Type: Beer Apr 09, 2016 Travel outside [place]: . no Apr 09, 2016 Occupation: . retired Apr 09, 2016 Summary Purpose eClinicalWorks Submission
--- OUTSIDE RECORDS SUMMARY | 2018-05-05 06:37 | XMS REPORT ---
Author Author Lidia Coleman [facility] eClinicalWorks Address Unknown Phone Unavailable Care Team Providers Care Policy Writer Name Role Phone Lidia Coleman Unavailable Allergies, [...] [facility] Jan 20, 2015 referral/DR. Coleman Only [facility] Dec 21, 2015 Unknown [facility] Oct 23, 2015 [place] [facility] Nov 09, 2015 Problems Problem Type Condition ICD-9 Code Onset Dates Condition Status Problem Carotid stenosis, left I65.22 Active Problem H/O heart artery stent Z95.5 Mar 18, 2011 Active Problem HTN (hypertension) I10 Active Problem Anxiety F41.9 Active Assessment Acute tracheobronchitis J20.9 Active Problem Erectile dysfunction, unspecified erectile dysfunction type N52.9 Active Assessment Anxiety F41.9 Active Assessment Erectile dysfunction, unspecified erectile dysfunction type N52.9 Active Problem Acute tracheobronchitis J20.9 Active Problem Recurrent UTI N39.0 Active Problem CAD (coronary artery disease) I25.10 Active Problem Left hip pain M25.552 Active Problem Status post fall Z91.81 Active Problem Coronary atherosclerosis of [place] coronary artery 414.01 Active Problem Erectile dysfunction due to arterial insufficiency N52.01 Active Assessment HTN (hypertension) I10 Active Assessment CAD (coronary artery disease) I25.10 Active Problem Essential (primary) hypertension I10 Active Problem Insomnia G47.00 Active Problem chronic back pain 355.9 Active Problem BPH (benign prostatic hyperplasia) N40.0 Active Problem Adjustment disorder with mixed anxiety and depressed mood F43.23 Active Problem Peripheral neuropathy G62.9 Active Medications Medication Code System Code Instructions Start Date End Date Status Dosage Xanax [facility] [address]-42 0.5 MG Orally Three times a day Active 1 tablet Metoprolol Succinate ER [facility] [address]-58 100 mg Orally Once a day Active 1 tablet Aspirin [facility] 18349-82819 81 MG Orally Once a day Active 1 tablet Azithromycin [facility] [address]-21 250 MG Orally Once a day Dec 21, 2015 Dec 26, 2015 Active 2 tablets on the first day, then 1 tablet daily for 4 days Amlodipine Besylate [facility] [address]-87 10 mg Orally Once a day Active 1 tablet Lisinopril [facility] [address]-90 2.5 MG Orally Once a day June 30, 2015 Active 1 tablet Plavix [facility] [address]-72 75 mg Orally Once a day June 30, 2015 Active 1 tablet Social History Social History Element Qualifiers Date Reported Tobacco Use: . Are you a: never smoker Dec 21, 2015 Alcohol Screening: . Points: 0, Interpretation: Negative Dec 21, 2015 Sexual Hx: . Had sex in the last 12 months (vaginal, oral, or anal)?: Yes, with: Women only, Use protection?: Yes, How often?: All of the time, Prevention Strategies discussed:: Condoms, Have you ever had an STD?: No Dec 21, 2015 Do you have pets? . Status: No Dec 21, 2015 Use of recreational / street drugs? . Answer: No Dec 21, 2015 Marital Status: . Dec 21, 2015 Caffeine intake? . Status: Yes, What type: Coffee, Soft Drinks Dec 21, 2015 Do you exercise? . Answer: Yes, Type: walking Dec 21, 2015 Do you drink alcohol? . Status: Yes, Type: Beer Dec 21, 2015 Travel outside [place]: . no Dec 21, 2015 Occupation: . retired Dec 21, 2015 Vital Signs Date/Time: Dec 21, 2015 Weight 132 lbs Height 62 in Temperature 97.4 F Blood Pressure Diastolic 91 mm Hg Blood Pressure Systolic 155 mm Hg Summary Purpose eClinicalWorks Submission
--- OUTSIDE RECORDS SUMMARY | 2018-05-05 06:37 | XMS REPORT ---
Author Author Lidia Coleman [facility] eClinicalWorks Address Unknown Phone Unavailable Care Team Providers Care Precinct Police Lieutenant Name Role Phone Lidia Coleman Unavailable Encounters Encounter Location Date refills [facility] Jan 30, 2015 Unknown [facility] Mar 08, 2015 Unknown [facility] Apr 20, 2015 [place]ick [place] [facility] [place] September 29, 2015 Unknown [facility] Dec 19, 2014 Annual Physical [facility] Jan 12, 2015 Unknown [facility] Jan 20, 2015 referral/DR. Coleman Only [facility] Dec 21, 2015 Unknown [facility] Oct 23, 2015 [facility]S [facility] Nov 09, 2015 Unknown [facility] Mar 27, 2016 Sick Visit [facility] Feb 02, 2016 Sick Visit [facility] Feb 20, 2016 Problems Problem Type Condition ICD-9 Code Onset Dates Condition Status Problem Carotid stenosis, left I65.22 Active Problem H/O heart artery stent Z95.5 Mar 18, 2011 Active Problem HTN (hypertension) I10 Active Problem Anxiety F41.9 Active Problem Erectile dysfunction, unspecified erectile dysfunction type N52.9 Active Problem Acute tracheobronchitis J20.9 Active Problem Recurrent UTI N39.0 Active Problem CAD (coronary artery disease) I25.10 Active Problem Left hip pain M25.552 Active Problem Status post fall Z91.81 Active Problem Coronary atherosclerosis of [place] coronary artery I25.10 Active Problem Erectile dysfunction due to arterial insufficiency N52.01 Active Problem Essential (primary) hypertension I10 Active Problem Insomnia G47.00 Active Problem chronic back pain 355.9 Active Problem BPH (benign prostatic hyperplasia) N40.0 Active Problem Adjustment disorder with mixed anxiety and depressed mood F43.23 Active Problem Peripheral neuropathy G62.9 Active Medications Medication Code System Code Instructions Start Date End Date Status Dosage Levaquin [facility] [address]-50 500 MG Orally Once a day Mar 27, 2016 Apr 06, 2016 Active 1 tablet Social History Social History Element Qualifiers Date Reported Tobacco Use: . Are you a: never smoker Mar 20, 2016 Alcohol Screening: . Points: 0, Interpretation: Negative Mar 20, 2016 Sexual Hx: . Had sex in the last 12 months (vaginal, oral, or anal)?: Yes, with: Women only, Use protection?: Yes, How often?: All of the time, Prevention Strategies discussed:: Condoms, Have you ever had an STD?: No Mar 20, 2016 Do you have pets? . Status: No Mar 20, 2016 Use of recreational / street drugs? . Answer: No Mar 20, 2016 Marital Status: . Mar 20, 2016 Caffeine intake? . Status: Yes, What type: Coffee, Soft Drinks Mar 20, 2016 Do you exercise? . Answer: Yes, Type: walking Mar 20, 2016 Do you drink alcohol? . Status: Yes, Type: Beer Mar 20, 2016 Travel outside [place]: . no Mar 20, 2016 Occupation: . retired Mar 20, 2016 Summary Purpose eClinicalWorks Submission
--- OUTSIDE RECORDS SUMMARY | 2018-05-05 06:37 | XMS REPORT ---
Author Author Lidia Coleman [facility] eClinicalWorks Address Unknown Phone Unavailable Care Team Providers Care Waterproof Bag Cutting Machine Operator Name Role Phone Lidia Coleman Unavailable Allergies, [...] [facility] Dec 19, 2014 Sick Visit [facility] Feb 02, 2016 Annual Physical [facility] Jan [...] I10 Active Problem Anxiety F41.9 Active Assessment Coronary atherosclerosis of [place] coronary artery I25.10 Active Problem Erectile dysfunction, unspecified erectile dysfunction type N52.9 Active Problem Acute tracheobronchitis J20.9 Active Problem Recurrent UTI N39.0 Active Problem CAD (coronary artery disease) I25.10 Active Problem Left hip pain M25.552 Active Problem Status post fall Z91.81 Active Problem Coronary atherosclerosis of [place] coronary artery I25.10 Active Problem Erectile dysfunction due to arterial insufficiency N52.01 Active Assessment Left hip pain M25.552 Active Assessment Essential (primary) hypertension I10 Active Problem Essential (primary) hypertension I10 Active Problem Insomnia G47.00 Active Problem chronic back pain 355.9 Active Problem BPH (benign prostatic hyperplasia) N40.0 Active Problem Adjustment disorder with mixed anxiety and depressed mood F43.23 Active Problem Peripheral neuropathy G62.9 Active Medications Medication Code System Code Instructions Start Date End Date Status Dosage Aspirin [facility] 09832-[address]20 81 MG Orally Once a day Active 1 tablet Plavix [facility] [address]-97 75 mg Orally Once a day June 30, 2015 Active 1 tablet Xanax [facility] [address]-70 0.5 MG Orally Three times a day Active 1 tablet Lisinopril [facility] [address]-42 5 MG Orally Once a day June 30, 2015 Active 1 tablet Amlodipine Besylate [facility] [address]-70 10 mg Orally Once a day Active 1 tablet Metoprolol Succinate ER [facility] [address]-02 100 mg Orally Once a day Active 1 tablet Azithromycin [facility] [address]-20 250 MG Orally Once a day Feb 02, 2016 Feb 07, 2016 Active 2 tablets on the first day, then 1 tablet daily for 4 days Social History Social History Element Qualifiers Date Reported Tobacco Use: . Are you a: never smoker Feb 02, 2016 Alcohol Screening: . Points: 0, Interpretation: Negative Feb 02, 2016 Sexual Hx: . Had sex in the last 12 months (vaginal, oral, or anal)?: Yes, with: Women only, Use protection?: Yes, How often?: All of the time, Prevention Strategies discussed:: Condoms, Have you ever had an STD?: No Feb 02, 2016 Do you have pets? . Status: No Feb 02, 2016 Use of recreational / street drugs? . Answer: No Feb 02, 2016 Marital Status: . Feb 02, 2016 Caffeine intake? . Status: Yes, What type: Coffee, Soft Drinks Feb 02, 2016 Do you exercise? . Answer: Yes, Type: walking Feb 02, 2016 Do you drink alcohol? . Status: Yes, Type: Beer Feb 02, 2016 Travel outside [place]: . no Feb 02, 2016 Occupation: . retired Feb 02, 2016 Vital Signs Date/Time: Feb 02, 2016 Weight 132 lbs Height 62 in Temperature 97.2 F Blood Pressure Diastolic 98 mm Hg Blood Pressure Systolic 169 mm Hg Immunizations Vaccine Administration Date Influenza Feb 02, 2016 Summary Purpose eClinicalWorks Submission
--- OUTSIDE RECORDS SUMMARY | 2018-05-05 06:37 | XMS REPORT ---
Author Author Lidia Coleman [facility] eClinicalWorks Address Unknown Phone Unavailable Care Team Providers Care Equity Analyst Name Role Phone Lidia Coleman Unavailable Allergies, Adverse Reactions, Alerts Substance Reaction Event Type N.K.D.A. Info Not Available Non Drug Allergy Encounters Encounter Location Date refills [facility] Jan 30, 2015 Unknown [facility] Mar 08, 2015 Unknown [facility] Apr 20, 2015 [place]ick [place] [facility] [place] September 29, 2015 Unknown [facility] Dec 19, 2014 Annual Physical [facility] Jan 12, 2015 Unknown [facility] Jan 20, 2015 referral/DR. Coleman Only [facility] Dec 21, 2015 Unknown [facility] Oct 23, 2015 [place] Nov 09, 2015 Sick Visit [facility] Apr 09, 2016 Sick Visit [facility] Apr 22, 2016 Unknown [facility] Mar 27, 2016 Unknown [facility] Apr 12, 2016 Sick Visit [facility] Feb 02, 2016 Sick Visit [facility] Feb 20, 2016 Problems Problem Type Condition ICD-9 Code Onset Dates Condition Status Problem CAD (coronary artery disease) I25.10 Active Problem Status post fall Z91.81 Active Problem Recurrent UTI N39.0 Active Problem Seasonal allergic rhinitis due to pollen J30.1 Active Problem Coronary atherosclerosis of [place] coronary artery I25.10 Active Problem Chronic frontal sinusitis J32.1 Active Assessment Angina at rest I20.8 Active Assessment Coronary artery disease of [place] artery of [place] heart with stable angina pectoris I25.118 Active Problem Angina at rest I20.8 Active Problem Erectile dysfunction, unspecified erectile dysfunction [...] Instructions Start Date End Date Status Dosage Flonase [facility] 50301016063 50 MCG/ACT Nasally Once a day Active 1 spray in each nostril Losartan Potassium [facility] [address]-09 50 MG Orally Once a day Feb 20, 2016 Active 1 tablet [facility] [address]-70 10 MG Orally twice a day (bid) Mar 21, 2016 Active 1 tablet with food or milk Amlodipine Besylate [facility] [address]-40 10 mg Orally Once a day Active 1 tablet [facility]anax [facility] [address]-05 0.5 MG Orally Three times a day Active 1 tablet Metoprolol Succinate ER [facility] [address]-97 100 mg Orally Once a day Active 1 tablet [facility]irin [facility] 31093-[address]67 81 MG Orally Once a day Active 1 tablet [facility]avix [facility] [address]-38 75 mg Orally Once a day June 30, 2015 Active 1 tablet Social History Social History Element Qualifiers Date Reported Tobacco Use: . Are you a: never smoker Apr 22, 2016 Alcohol Screening: . Points: 0, Interpretation: Negative Apr 22, 2016 Sexual Hx: . Had sex in the last 12 months (vaginal, oral, or anal)?: Yes, with: Women only, Use protection?: Yes, How often?: All of the time, Prevention Strategies discussed:: Condoms, Have you ever had an STD?: No Apr 22, 2016 Do you have pets? . Status: No Apr 22, 2016 Use of recreational / street drugs? . Answer: No Apr 22, 2016 Marital Status: . Apr 22, 2016 Caffeine intake? . Status: Yes, What type: Coffee, Soft Drinks Apr 22, 2016 Do you exercise? . Answer: Yes, Type: walking Apr 22, 2016 Do you drink alcohol? . Status: Yes, Type: Beer Apr 22, 2016 Travel outside [place]: . no Apr 22, 2016 Occupation: . retired Apr 22, 2016 Vital Signs Date/Time: Apr 22, 2016 Weight 137 lbs Height 62 in Temperature 97.1 F Blood Pressure Diastolic 79 mm Hg Blood Pressure Systolic 160 mm Hg Summary Purpose eClinicalWorks Submission
--- OUTSIDE RECORDS SUMMARY | 2018-05-05 06:37 | XMS REPORT ---
Author Author Lidia Coleman [facility] eClinicalWorks Address Unknown Phone Unavailable Care Team Providers Care Doctor Of Podiatric Medicine Name Role Phone Lidia Coleman Unavailable Allergies, Adverse Reactions, Alerts Substance Reaction Event Type N.K.D.A. Info Not Available Non Drug Allergy Encounters Encounter Location Date refills [facility] Jan 30, 2015 Unknown [facility] Mar 08, 2015 Unknown [facility] Apr 20, 2015 Sick Visit [facility] September 29, 2015 Unknown [facility] Dec 19, 2014 Annual Physical [facility] Jan 12, 2015 Unknown [facility] Jan 20, 2015 referral/DR. Coleman Only [facility] Dec 21, 2015 Unknown [facility] Oct 23, 2015 [place]S [facility] Nov 09, 2015 Sick Visit [facility] Apr 09, 2016 Unknown [facility] Mar [...] Problem Chronic frontal sinusitis J32.1 Active Assessment Hip pain, left M25.552 Active Problem Acute tracheobronchitis J20.9 Active Assessment Seasonal allergic rhinitis due to pollen J30.1 Active Assessment Chronic frontal sinusitis J32.1 Active Problem Seasonal allergic rhinitis due to pollen J30.1 Active Problem Left hip pain M25.552 Active Problem Status post fall Z91.81 Active Problem Anxiety F41.9 Active Problem Erectile dysfunction, unspecified erectile dysfunction type N52.9 Active Problem chronic back pain 355.9 Active Problem Adjustment disorder with mixed anxiety and depressed mood F43.23 Active Problem Coronary atherosclerosis of [place] coronary artery I25.10 Active Problem Erectile dysfunction due to arterial insufficiency N52.01 Active Problem BPH (benign prostatic hyperplasia) N40.0 Active Problem Peripheral neuropathy G62.9 Active Problem Essential (primary) hypertension I10 Active Problem Carotid stenosis, left I65.22 Active Problem Insomnia G47.00 Active Problem HTN (hypertension) I10 Active Medications Medication Code System Code Instructions Start Date End Date Status Dosage [facility] [address]-98 500 MG Orally Once a day Apr 09, 2016 Apr 19, 2016 Active 1 tablet Losartan Potassium [facility] [address]-70 50 MG Orally Once a day Feb 20, 2016 Active 1 tablet [facility]irin [facility] 269[address]154 81 MG Orally Once a day Active 1 tablet Amlodipine Besylate [facility] [address]-16 10 mg Orally Once a day Active 1 [address] [facility] [address]-94 75 mg Orally Once a day June 30, 2015 Active 1 tablet [address]ofen [facility] [address]-97 10 MG Orally twice a day (bid) Mar 21, 2016 Active 1 tablet with food or milk Flonase [facility] [address]-30 50 MCG/ACT Nasally Once a day Apr 09, 2016 Active 1 spray in each nostril Xanax [facility] [address]-18 0.5 MG Orally Three times a day Active 1 tablet Metoprolol Succinate ER [facility] [address]-68 100 mg Orally Once a day Active [...] 2016 Occupation: . retired Apr 09, 2016 Vital Signs Date/Time: Apr 09, 2016 Weight 138 lbs Height 62 in Temperature 98.6 F Blood Pressure Diastolic 69 mm Hg Blood Pressure Systolic 121 mm Hg Summary Purpose eClinicalWorks Submission
--- OUTSIDE RECORDS SUMMARY | 2018-05-05 06:37 | XMS REPORT ---
Author Author Lidia Coleman Organization [employer] Address Unknown Phone Unavailable Care Team Providers Care Branch Store Manager Name Role Phone Lidia Coleman Unavailable Allergies, Adverse Reactions, Alerts Substance Reaction Event Type N.K.D.A. Info Not Available Non Drug Allergy Encounters Encounter Location Date refills [facility] Jan 30, 2015 Unknown [facility] Mar 08, 2015 Unknown [facility] Apr 20, 2015 Unknown [facility] Dec 19, 2014 Annual Physical [facility] Jan 12, 2015 Unknown [facility] Jan 20, 2015 Problems Problem Type Condition ICD-9 Code Onset Dates Condition Status Problem Influenza vaccine administered Z23 Active Problem Osteoarthritis M19.90 Active Problem HTN (hypertension) I10 Active Problem Left shoulder pain M25.512 Active Problem Cardiomyopathy I42.9 Active Problem Erectile dysfunction due to arterial insufficiency N52.01 Active Problem Adjustment disorder with anxiety F43.22 Active Problem CAD (coronary artery disease), 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 Problem Acute bronchitis J20.9 Active Problem Cervical radiculopathy due to degenerative joint disease of spine M47.22 Active Assessment BPH (benign prostatic hyperplasia) N40.0 Active Assessment HTN (hypertension) I10 Active Assessment URI (upper respiratory infection) J06.9 Active Assessment Osteoarthritis M19.90 Active Problem Recurrent UTI N39.0 Active Assessment CAD (coronary artery disease), 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 Problem BPH (benign prostatic hyperplasia) N40.0 Active Medications Medication Code System Code Instructions Start Date End Date Status Dosage Clopidogrel Bisulfate [facility] [address]-66 75 mg Orally Once a day Active 1 tablet Aspirin [facility] [address]-98 81 MG Orally Once a day June 06, 2015 Active 1 tablet Levaquin [facility] [address]-00 500 mg Orally Once a day Apr 20, 2015 Apr 30, 2015 Active 1 tablet [facility] [address]-03 10 mg Orally Once a day Active 1 tablet Tamsulosin HCl [facility] [address]-11 0.4 MG Orally Once a day Mar 08, 2015 June 06, 2015 Active 1 capsule 30 minutes after the same meal each day Tramadol HCl [facility] [address]-89 50 mg Orally twice a day (bid) as needed (prn) Mar 01, 2015 Active 1 tablet Cialis [facility] [address]-45 5 MG Orally every 24 hrs Apr 20, 2015 June 19, 2015 Active 1 tablet Xanax [facility] [address]-86 0.5 MG Orally Three times a day Active 1 tablet Metoprolol Succinate ER [facility] [address]-00 100 mg Orally Once a day Active 1 tablet Social History Social History Element Qualifiers Date Reported Tobacco Use: . Are you a: former smoker, What year did you quit? 1968 Apr 20, 2015 Use of recreational / street drugs? . Answer: No Apr 20, 2015 Marital Status: . Apr 20, 2015 Caffeine intake? . Status: Yes, What type: Coffee, Soft Drinks Apr 20, 2015 Do you exercise? . Answer: No Apr 20, 2015 Do you drink alcohol? . Status: Yes, Type: Beer, How Often? Rarely Apr 20, 2015 Travel outside [place]: . no Apr 20, 2015 Occupation: . RETIRED. Fitter / Welder. Apr 20, 2015 Vital Signs Date/Time: Apr 20, 2015 Weight 140.6 lbs Height 62.1 in Temperature 97.3 F Cardiac Monitoring Heart Rate 73 /min Blood Pressure Diastolic 83 mm Hg Blood Pressure Systolic 145 mm Hg Summary Purpose [employer] Submission
--- OUTSIDE RECORDS SUMMARY | 2018-05-05 06:37 | XMS REPORT ---
Author Author Lidia Coleman Organization [employer] Address Unknown Phone Unavailable Care Team Providers Care Container Packer Operator Name Role Phone Lidia Coleman CP Unavailable Allergies, Adverse Reactions, Alerts Substance Reaction Event Type N.K.D.A. Info Not Available Non Drug Allergy Problems Problem Type Condition Code Onset Dates Condition Status Assessment Erectile dysfunction due to arterial insufficiency N52.01 Active Assessment Neck pain M54.2 Active Assessment Adjustment disorder with mixed anxiety and depressed mood F43.23 Active Problem Coronary atherosclerosis of [place] coronary artery I25.10 Active Problem Adjustment disorder [...] N40.1 Active Problem Atherosclerotic heart disease of [place] coronary artery without angina pectoris I25.10 Active [...] Date End Date Status Dosage Pantoprazole Sodium [facility] [address]-06 40 mg Orally Once a day Active 1 tablet Losartan Potassium [facility] 42029158937 50 MG Orally Once a day Active 1 tablet Xanax [facility] 42840167701 0.5 MG Orally bid Active 1 tablet Atorvastatin Calcium [facility] 86603841225 40 MG Orally Once a day June 26, 2016 Active 1 tablet Naproxen [facility] 11418224040 500 MG Orally every 12 hrs prn Feb 20, 2018 Mar 22, 2018 Active 1 tablet with food or milk as needed Atorvastatin Calcium [facility] 00209577373 10 mg Orally Once a day July 29, 2017 Active 1 tablet Plavix [facility] 21769729007 75 mg Orally Once a day June 30, 2015 Active 1 tablet Viagra [facility] 07854785647 50 mg Orally Once a day as needed June 20, 2018 Active 1 tablet as needed Naproxen ND 0 Active not defined Olopatadine HCl [facility] 31161769381 0.2 % Ophthalmic bid Oct 28, 2017 Active as directed Loratadine [facility] 29604316426 10 MG Orally Once a day Feb 03, 2018 May 04, 2018 Active 1 tablet Baclofen [facility] 98445169817 10 MG Orally twice a day (bid) as needed (prn) Active 1 tablet with food or milk Metoprolol Succinate ER [facility] 99110954161 100 Active TAKE 1 TABLET BY MOUTH EVERY DAY Aspirin [facility] 15182907524 81 MG Orally Once a day Active 1 tablet Amlodipine Besylate [facility] 57096911923 10 Active TAKE 1 TABLET BY MOUTH EVERY DAY Vital Signs Date/Time: Feb 20, 2018 BMI 24.32 Index Weight 133 lbs Height 62 in Temperature 98.0 F Blood Pressure Diastolic 78 mm Hg Blood Pressure Systolic 146 mm Hg Results No Known Results Summary Purpose [employer] Submission
--- OUTSIDE RECORDS SUMMARY | 2018-05-05 06:37 | XMS REPORT ---
Author Author Lidia Coleman [facility] [employer] Address Unknown Phone Unavailable Care Team Providers Care Architecture Internship Name Role Phone Lidia Coleman Unavailable Allergies, Adverse Reactions, Alerts Substance Reaction Event Type N.K.D.A. Info Not Available Non Drug Allergy Encounters Encounter Location Date refills [facility] Jan 30, 2015 Unknown [facility] Mar 08, 2015 Unknown [facility] Apr 20, 2015 Sick Visit [facility] September 29, 2015 Unknown [facility] Dec 19, 2014 Sick Visit [facility] Feb 02, 2016 Annual Physical [facility] Jan 12, 2015 Sick [facility] Feb 20, 2016 Unknown [facility] Jan 20, 2015 referral/DR. Coleman Only [...] I10 Active Problem Anxiety F41.9 Active Assessment Cough R05 Active Problem Erectile dysfunction, unspecified erectile dysfunction type N52.9 Active Assessment Colon cancer screening Z12.11 Active Problem Acute tracheobronchitis J20.9 Active Problem Recurrent UTI N39.0 Active Problem CAD (coronary artery disease) I25.10 Active Problem Left hip pain M25.552 Active Problem Status post fall Z91.81 Active Problem Coronary atherosclerosis of [place] coronary artery I25.10 Active Problem Erectile dysfunction due to arterial insufficiency N52.01 Active Assessment Adverse effect of rxbcqtxlhkl-suxbicpagk-vyyycq inhibitors, initial encounter T46.4X5A Active Assessment Anxiety F41.9 Active Problem Essential (primary) hypertension I10 Active Problem Insomnia G47.00 Active Problem chronic back pain 355.9 Active Problem BPH (benign prostatic hyperplasia) N40.0 Active Problem Adjustment disorder with mixed anxiety and depressed mood F43.23 Active Problem Peripheral neuropathy G62.9 Active Medications Medication Code System Code Instructions Start Date End Date Status Dosage [facility]cc[facility] [address]-66 100 mg Orally Once a day Active 1 tablet Aspirin [facility] 39991-[address]15 81 MG Orally Once a day Active 1 tablet Lisinopril [facility] [address]-17 5 MG Orally Once a day June 30, 2015 Feb 20, 2016 Inactive 1 tablet Xanax [facility] [address]-26 0.5 MG Orally Three times a day Active 1 tablet Amlodipine Besylate [facility] [address]-50 10 mg Orally Once a day Active 1 tablet Plavix [facility] [address]-04 75 mg Orally Once a day June 30, 2015 Active 1 tablet Losartan Potassium [facility] [address]-53 25 MG Orally Once a day Feb 20, 2016 Active 1 tablet Social History Social History Element Qualifiers Date Reported Tobacco Use: . Are you a: never smoker Feb 20, 2016 Alcohol Screening: . Points: 0, Interpretation: Negative Feb 20, 2016 Sexual Hx: . Had sex in the last 12 months (vaginal, oral, or anal)?: Yes, with: Women only, Use protection?: Yes, How often?: All of the time, Prevention Strategies discussed:: Condoms, Have you ever had an STD?: No Feb 20, 2016 Do you have pets? . Status: No Feb 20, 2016 Use of recreational / street drugs? . Answer: No Feb 20, 2016 Marital Status: . Feb 20, 2016 Caffeine intake? . Status: Yes, What type: Coffee, Soft Drinks Feb 20, 2016 Do you exercise? . Answer: Yes, Type: walking Feb 20, 2016 Do you drink alcohol? . Status: Yes, Type: Beer Feb 20, 2016 Travel outside [place]: . no Feb 20, 2016 Occupation: . retired Feb 20, 2016 Vital Signs Date/Time: Feb 20, 2016 Weight 135 lbs Height 62 in Temperature 97.3 F Blood Pressure Diastolic 94 mm Hg Blood Pressure Systolic 163 mm Hg Summary Purpose [employer] Submission
--- OUTSIDE RECORDS SUMMARY | 2018-05-05 06:37 | XMS REPORT ---
Author Author Lidia Coleman [facility] [employer] Address Unknown Phone Unavailable Care Team Providers Care Delivery Room Clerk Name Role Phone Lidia Coleman Unavailable Encounters Encounter Location Date refills [facility] Jan 30, 2015 Unknown [facility] Mar 08, 2015 Unknown [facility] Apr 20, 2015 [place] [facility] September 29, 2015 Unknown [facility] Dec 19, 2014 Annual Physical [facility] Jan 12, 2015 Unknown [facility] Jan 20, 2015 Unknown [facility] Oct 23, 2015 Problems Problem Type Condition ICD-9 Code [...] Problem Carotid stenosis, left I65.22 Active Problem Coronary atherosclerosis of [place] coronary artery 414.01 Active Problem Erectile dysfunction due to arterial insufficiency N52.01 Active Problem chronic back pain 355.9 Active Social History Social History Element Qualifiers Date [...] 2015 Occupation: . retired September 29, 2015 Summary Purpose [employer] Submission
== END 2018-05-05 06:51 | disposition home or self-care (01) ==
LOC: ER 06:29
DX: K08.89 Other specified disorders of teeth and supporting structures (principal); K04.7 Periapical abscess without sinus
CPT/HCPCS: 99282

== ENCOUNTER 2018-08-08 13:16 | Emergency (ER) | payer MEDICARE ==
[~2018-08-08] VITALS: Ht 157.5 cm; Wt 60.8 kg
--- OUTSIDE RECORDS SUMMARY | 2018-08-08 13:22 | XMS REPORT | Continuity of Care Document ---
Author Author [facility] Interface Address Unknown Phone Unavailable Problems Problem Status Onset Date Classification Date Reported Comments Source CHEST PAIN Active 01/05/2015 [facility] H/O heart artery stent Active 03/18/2011 Problem 02/28/2018 Enayet Rahim Acid reflux Active Problem 07/24/2011 [facility] CABG - Coronary artery bypass graft Active Problem 07/24/2011 [facility] CAD - Coronary artery disease Active Problem 07/24/2011 [facility] Chest pain Active Problem 07/24/2011 [facility] HLD - Hyperlipidemia Active Problem 07/24/2011 [facility] HTN - Hypertension Active Problem 07/24/2011 [facility] Acid reflux Active Problem 01/09/2015 [facility] Acute abscess Active Problem 01/09/2015 [facility] CABG - Coronary artery bypass graft Active Problem 01/09/2015 [facility] CAD - Coronary artery disease Active Problem 01/09/2015 [facility] Cholesterol Resolved Problem 01/09/2015 [facility] GERD - Gastro-esophageal reflux disease Resolved Problem 01/09/2015 [facility] HLD - Hyperlipidemia Active Problem 01/09/2015 [facility] HTN - Hypertension Active Problem 01/09/2015 [facility] Hyperlipidemia Active Problem 01/09/2015 [facility] Hypertension Active Problem 01/09/2015 [facility] ND (<span [id number]</span>) Resolved Problem 01/09/2015 [facility] Gastroesophageal reflux disease without esophagitis Active Problem 02/28/2018 Enayet Rahim CAD Active Problem 02/28/2018 Enayet Rahim Persistent cough Active Diagnosis 08/08/2016 Enayet Rahim Recurrent UTI Active Problem 02/28/2018 Chiquiet Sussy,[id number] Adjustment disorder with mixed anxiety and depressed mood Active Diagnosis 02/28/2018 Enayet Rahim Status post fall Active Problem 02/28/2018 Enayet Rahim Erectile dysfunction, unspecified erectile dysfunction type Active Problem 02/28/2018 Enayet Rahim Left hip pain Active Problem 02/28/2018 [facility] Angina at rest Active Problem 02/28/2018 [facility] Benign non-nodular prostatic hyperplasia with lower urinary tract symptoms Active Problem 02/28/2018 [facility] chronic back pain Active Problem 02/28/2018 [facility] Erectile dysfunction due to arterial insufficiency Active Diagnosis 02/28/2018 [facility],[id number] Coronary atherosclerosis of tangirnaq coronary artery Active Problem 02/28/2018 [facility] Acute tracheobronchitis Active Problem 02/28/2018 [facility] Anxiety Active Problem 02/28/2018 [facility] Seasonal allergic rhinitis due to pollen Active Problem 02/28/2018 [facility] Chronic frontal sinusitis Active Problem 02/28/2018 [facility] Insomnia Active Problem 02/28/2018 [facility] BPH Active Problem 02/28/2018 [facility],[id number] Essential hypertension Active Problem 02/28/2018 [facility] HTN Active Problem 02/28/2018 [facility],[id number] Peripheral neuropathy Active Problem 02/28/2018 [facility] Carotid stenosis, left Active Problem 02/28/2018 [facility] Primary osteoarthritis of both hips Active Problem 02/28/2018 [facility] Other secondary acute gout of right foot Active Problem 02/28/2018 [facility] Vergaram Muscle spasm Active Diagnosis 11/26/2016 [facility] Vergaram Left arm pain Active Diagnosis 11/26/2016 [facility] [place]om Acute right hip pain Active Diagnosis 01/29/2017 [facility] Vergaram Pure hypercholesterolemia Active Problem 02/28/2018 [facility] Atherosclerotic heart disease of [place]q coronary artery without angina pectoris Active Problem 02/28/2018 [facility] Lumbago with sciatica, right side Active Problem 02/28/2018 [facility] Vergaram Other chronic pain Active Problem 02/28/2018 Enayet Rahim Neck pain Active Diagnosis 02/28/2018 Enadalbertoet Ursulam Chest pain, unspecified Active Diagnosis 12/30/2017 [facility] Vergaram Influenza vaccine administered Active Problem 04/23/2015 [id number] Osteoarthritis Active Problem 04/23/2015 [id number] Left shoulder pain Active Problem 04/23/2015 [id number] Cardiomyopathy Active Problem 04/23/2015 [id number] Adjustment disorder with anxiety Active Problem 04/23/2015 [id number] CAD , bypass graft transplanted heart Active Problem 04/23/2015 [id number] Acute bronchitis Active Problem 04/23/2015 [id number] Cervical radiculopathy due to degenerative joint disease of spine Active Problem 04/23/2015 [id number] URI Active Diagnosis 04/23/2015 [id number] Allergic conjunctivitis of both eyes Active Diagnosis 02/12/2018 [facility] Vergaram Neck pain on left side Active Diagnosis 02/12/2018 Enadalbertoet Rahim Tooth infection Active Diagnosis 09/09/2017 Enadalbertoet Rahim Hyperglycemia Active Diagnosis 09/09/2017 Enadalbertoet Ursulam Frequent urination at night Active Diagnosis 09/09/2017 Eng[facility] Vergaram Coronary atherosclerosis of tangirnaq coronary artery Active Problem 12/25/2015 [facility] Vergaram Acute cystitis without hematuria Active Diagnosis 06/28/2016 [facility] Vergaram Cough Active Diagnosis 02/26/2016 [facility] Vergaram Adverse effect of wkjayfojthc-trcvmsweji-ycwgza inhibitors, initial encounter Active Diagnosis 02/26/2016 [facility] Vergaram Hip pain, left Active Diagnosis 04/22/2016 Eng[facility] Vergaram Coronary artery disease of tangirnaq artery of tangirnaq heart with stable angina pectoris Active Diagnosis 04/28/2016 [facility] Chest pain Active Problem 05/05/2018 [facility] Medications Medication Details Route Status Patient Instructions Ordering Provider Order Date Source Viagra 1 tablet as needed Orally Active 50 mg Orally Once a day as needed Jared 06/20/2018 [facility] Vergara Naproxen 1 tablet with food or milk as needed Orally Active 500 MG Orally every 12 hrs prn Jared 02/20/2018 [facility] Loratadine 1 tablet Orally Active 10 MG Orally Once a day Jared 02/03/2018 [facility] Vergara Olopatadine HCl as directed Ophthalmic Active 0.2 % Ophthalmic bid Jared 10/28/2017 [facility] Tylenol/Codeine #3 1 tablet as needed Orally Active 300-30 MG Orally every 12 hrs Jared 10/13/2017 [facility] Amoxicillin 1 tablet Orally Active 500 MG Orally every 12 hrs Jared 08/28/2017 [facility] Atorvastatin Calcium 1 tablet Orally Active 10 mg Orally Once a day Jared 07/29/2017 [facility] Viagra 1 tablet as needed Orally Active 100 mg Orally Once a day Jared 07/29/2017 [facility] PredniSONE 1 tablet Orally Active 20 mg Orally Once a day Jared 06/24/2017 [facility] Losartan Potassium 1 tablet Orally Active 25 MG Orally Once a day Jared 12/16/2016 [facility] Losartan Potassium 1 tablet Orally Active 50 MG Orally Once a day Jared 12/16/2016 [facility] Baclofen 1 tablet with food or milk Orally Active 10 MG Orally twice a day (bid) as needed (prn) Jared 11/21/2016 [facility]ergara Cialis 1 tablet Orally Active 2.5 MG Orally Once a day Jared 09/19/2016 [facility] Fexofenadine HCl 1 tablet as needed Orally Active 60 MG Orally daily Jared 08/05/2016 [facility] Vergara Pantoprazole Sodium 1 tablet Orally Active 40 MG Orally Once a day Jared 08/05/2016 [facility] Tamsulosin HCl 1 capsule Orally Active 0.4 MG Orally Once a day Jared 07/08/2016 [facility] Ciprofloxacin HCl 1 tablet Orally Active 500 MG Orally Twice a day [facility] 07/08/2016 [facility] Atorvastatin Calcium 1 tablet Orally Active 40 MG Orally Once a day [facility] 06/26/2016 [facility] Vergara Atorvastatin Calcium 1 tablet Orally Active 40 MG Orally Once a day [facility] 06/26/2016 [facility] Atorvastatin Calcium (Lipitor) 20 Mg Tablet, 20 Mg Oral Daily Active 04/17/2016 [facility] Clopidogrel Bisulfate (Plavix) 75 Mg Tablet, 75 Mg Oral Daily Active 04/17/2016 [facility] Hydrocodone Bit/Acetaminophen ([place] 7.5-325 Tablet) 1 Each Tablet, 1 Ea Oral Every 4 Hours as needed for Pain Active 04/17/2016 [facility] Levaquin 1 tablet Orally Active 500 MG Orally Once a day [facility] 04/09/2016 [facility] Flonase 1 spray in each nostril Nasally Active 50 MCG/ACT Nasally Once a day [facility] 04/09/2016 [facility] Levaquin 1 tablet Orally Active 500 MG Orally Once a day [facility] 03/27/2016 [facility] Baclofen 1 tablet with food or milk Orally Active 10 MG Orally twice a day (bid) [facility] 03/21/2016 [facility] Losartan Potassium 1 tablet Orally Active 50 MG Orally Once a day [facility] 02/20/2016 [facility] Losartan Potassium 1 tablet Orally Active 25 MG Orally Once a day [facility] 02/20/2016 [facility] Azithromycin 2 tablets on the first day, then 1 tablet daily for 4 days Orally Active 250 MG Orally Once a day [facility] 02/02/2016 [facility] Verg[facility] Azithromycin 2 tablets on the first day, then 1 tablet daily for 4 days Orally Active 250 MG Orally Once a day [facility] 12/21/2015 [facility] Acetaminophen-Codeine #3 1 tablet as needed Orally Active 300- 30 MG Orally three times a day (tid) as needed (prn) [facility] 11/09/2015 [facility] Tadalafil 1 tablet Orally Active 5 MG Orally every 24 hrs [facility] 09/29/2015 [facility] Sildenafil Citrate 1 tablet as needed Orally No Longer Active 50 mg Orally Once a day [facility] 08/23/2015 [facility] Nitrofurantoin 1 capsule Orally Active 50 mg Orally Once a day [facility] 07/27/2015 [facility] Plavix 1 tablet Orally Active 75 mg Orally Once a day [facility] 06/30/2015 [facility] Vergara Plavix 1 tablet Orally Active 75 mg Orally Once a day [facility] 06/30/2015 [facility] Lisinopril 1 tablet Orally Active 2.5 MG Orally Once a day [facility] 06/30/2015 [facility] Lisinopril 1 tablet Orally No Longer Active 5 MG Orally Once a day [facility] 06/30/2015 [facility] Aspirin 1 tablet Orally Active 81 MG Orally Once a day [facility] 06/06/2015 [id number] Levaquin 1 tablet Orally Active 500 mg Orally Once a day [facility] 04/20/2015 [id number] Cialis 1 tablet Orally Active 5 MG Orally every 24 hrs [facility] 04/20/2015 [id number] Tamsulosin HCl 1 capsule 30 minutes after the same meal each day Orally Active 0.4 MG Orally Once a day [facility] 03/08/2015 [id number] Tramadol HCl 1 tablet Orally Active 50 mg Orally twice a day (bid) as needed (prn) [facility] 03/01/2015 [id number] atorvastatin 40 mg, 1 tab, Route: PO, Drug form: TAB, Bedtime, Dosing Weight 60.455, kg, Start date: 01/06/15 21:00:00, Duration: 30 day, Stop date: 02/04/15 21:00:00Notes: (Same as: Lipitor) Inactive 01/07/2015 [facility] Protonix 40 mg, 1 tab, Route: PO, Drug form: ECTAB, Before Dinner, Dosing Weight 60.455, kg, Start date: 01/06/15 16:30:00, Duration: 30 day, Stop date: 02/04/15 16:30:00Notes: Tablet should not be chewed or crushed. (Same as: Protonix) Inactive 01/06/2015 [facility] ALPRAZOLam 1 mg oral tablet, disintegrating 1 mg=1 tab, PO, TID, PRN Anxiety, X 14 day, # 42 tab, 0 Refill(s) Active 01/06/2015 [facility] atorvastatin 40 mg oral tablet 40 mg=1 tab, PO, Bedtime, # 30 tab, 0 Refill(s) Active 01/06/2015 [facility] Prinivil 40 mg, 2 tab, Route: PO, Drug form: TAB, Daily, Start date: 01/06/15 9:00:00, Duration: 30 day, Stop date: 02/04/15 9:00:00Notes: (Same as: Prinivil, Zestril) Inactive 01/06/2015 [facility] 24 HR Metoprolol Tartrate 100 MG Extended Release Tablet [Toprol] 100 mg, 1 tab, Route: PO, Drug form: ERTAB, Daily, Start date: 01/06/15 9:00:00, Duration: 30 day, Stop date: 02/04/15 9:00:00Notes: (Same as: Toprol XL) May split tab, but do not crush. Inactive 01/06/2015 [facility] Aspirin 81 MG Enteric Coated Tablet 81 mg, 1 tab, Route: PO, Drug form: ECTAB, Daily, Dosing Weight 60.455, kg, Start date: 01/06/15 9:00:00, Duration: 30 day, Stop date: 02/04/15 9:00:00Notes: Do not crush or chew. (Same As: Ecotrin) Inactive 01/06/2015 [facility] Amlodipine 5 MG / Benazepril hydrochloride 40 MG Oral Capsule 1 cap, Route: PO, Drug Form: CAP, Dosing Weight 60.455, kg, Daily, Start date: 01/06/15 9:00:00, Duration: 30 day, Stop date: 02/04/15 9:00:00 Inactive 01/06/2015 [facility] ergocalciferol 50,000 IntlUnit, 1 cap, Route: PO, Drug form: CAP, Daily, Dosing Weight 60.455, kg, Start date: 01/06/15 9:00:00, Duration: 3 day, Stop date: 01/08/15 9:00:00Notes: (Same as: Vitamin D) "Do Not Crush" Inactive 01/06/2015 [facility] Norvasc 5 mg, 1 tab, Route: PO, Drug form: TAB, Daily, Start date: 01/06/15 9:00:00, Duration: 30 day, Stop date: 02/04/15 9:00:00Notes: (Same as: Norvasc) Inactive 01/06/2015 [facility] Alprazolam 0.5 MG Oral Tablet [Xanax] 0.5 mg, 1 tab, Route: PO, Drug form: TAB, TID, Dosing Weight 60.455, kg, PRN Anxiety, Start date: 01/06/15 8:09:00, Duration: 30 day, Stop date: 02/05/15 8:08:00Notes: With food or milk (Same as: Xanax) Inactive 01/06/2015 [facility] Amlodipine 5 MG / Benazepril hydrochloride 40 MG Oral Capsule 1 cap, PO, Daily, # 30 cap, 0 Refill(s) Active 01/06/2015 [facility] atorvastatin 20 mg, PO, Bedtime, 0 Refill(s) Inactive 01/06/2015 [facility] Metoprolol 5 mg, 5 mL, Route: IV, Drug form: INJ, Q2H, Dosing Weight 60.455, kg, PRN Tachycardia, Start date: 01/05/15 23:10:00, Duration: 30 day, Stop date: 02/04/15 23:09:00Notes: (Same as: Lopressor) Push over 2 minutes No Longer Active 01/06/2015 [facility] Nitroglycerin 0.4 MG Sublingual Tablet [Nitrostat] 0.4 mg, 1 tab, Route: SL, Drug form: TAB, Q5Min, Dosing Weight 60.455, kg, PRN Chest Pain, Start date: 01/05/15 23:10:00, Duration: 3 doses or times, Stop date: Limited # of timesNotes: (Same as:Nitroquick, Nitrostat) "Do Not Crush" Sublingual tablet No Longer Active 01/06/2015 [facility] Hydralazine 10 mg, 0.5 mL, Route: IV, Drug form: INJ, Q4H, Dosing Weight 60.455, kg, PRN Hypertension, Start date: 01/05/15 23:10:00, Duration: 30 day, Stop date: 02/04/15 23:09:00Notes: (Same as: Apresoline) Push over 5 minutes No Longer Active 01/06/2015 [facility] nitroglycerin 0.4 mg sublingual tablet 0.4 mg, 1 tab, Route: SL, Drug form: TAB, Q5Min, PRN Chest Pain, Start date: 01/05/15 19:07:00, Duration: 30 day, Stop date: 02/04/15 18:06:00Notes: (Same as:Nitroquick, Nitrostat) "Do Not Crush" Sublingual tablet No Longer Active 01/06/2015 [facility] atropine 0.5 mg, 5 mL, Route: IVP, Drug form: INJ, PRN, PRN Bradycardia, Start date: 01/05/15 19:07:00, Duration: 30 day, Stop date: 02/04/15 18:06:00 No Longer Active 01/06/2015 [facility] Acetaminophen 325 MG / Hydrocodone Bitartrate 5 MG Oral Tablet 1 tab, Route: PO, Drug Form: TAB, Dosing Weight 60.455, kg, Q4H, PRN Pain Score 4-6, Start date: 01/05/15 18:50:00, Duration: 30 day, Stop date: 02/04/15 18:49:00Notes: (Same as: [place] 325/5) Do not exceed 4gm/day of acetaminophen. No Longer Active 01/05/2015 [facility] Acetaminophen 650 mg, 2 tab, Route: PO, Drug form: TAB, Q4H, Dosing Weight 60.455, kg, PRN Pain 1-3/Temp > 100.4 F, Start date: 01/05/15 18:50:00, Duration: 30 day, Stop date: 02/04/15 18:49:00Notes: Do not exceed 4 gm/day. (Same as: Tylenol) No Longer Active 01/05/2015 [facility] Docusate 100 mg, 1 cap, Route: PO, Drug form: CAP, BID, Dosing Weight 60.455, kg, PRN Constipation, Start date: 01/05/15 18:50:00, Duration: 30 day, Stop date: 02/04/15 18:49:00Notes: (Same as: Colace) (Do Not Crush) No Longer Active 01/05/2015 [facility] Morphine 2 mg, 1 mL, Route: IVP, Drug form: INJ, Q4H, Dosing Weight 60.455, kg, PRN Pain Score 7-10, Start date: 01/05/15 18:50:00, Duration: 30 day, Stop date: 02/04/15 18:49:00Notes: (Same as:MORPhine Sulfate) No Longer Active 01/05/2015 [facility] Ondansetron 4 mg, 2 mL, Route: IVP, Drug form: INJ, Q6H, Dosing Weight 60.455, kg, PRN Nausea & Vomiting, Start date: 01/05/15 18:50:00, Duration: 30 day, Stop date: 02/04/15 18:49:00Notes: (Same as: Zofran) MEDICATION WASTE Product Size: 4 mg Product Wasted: ___ mg No Longer Active 01/05/2015 [facility] Enoxaparin 40 mg, 0.4 mL, Route: SUB-Q, Drug form: INJ, [id number], Dosing Weight 60.455, kg, Start date: 01/05/15 17:00:00, Duration: 30 day, Stop date: 02/03/15 17:00:00Notes: (Same as: Lovenox) No Longer Active 01/05/2015 [facility] Aspirin 81 MG Enteric Coated Tablet 81 mg, 1 tab, Route: PO, Drug form: ECTAB, ONCE, Dosing Weight 60.455, kg, Priority: STAT, Start date: 01/05/15 16:51:00, Stop date: 01/05/15 16:51:00Notes: Do not crush or chew. (Same As: Ecotrin) Inactive 01/05/2015 [facility] Saline Flush 0.9% 10 mL, Route: IVP, Drug Form: INJ, Dosing Weight 60.455, kg, PRN, PRN Line Flush, Start date: 01/05/15 14:13:00, Duration: 30 day, Stop date: 02/04/15 13:12:00Notes: (Same as: BD Posiflush) Inactive 01/05/2015 [facility] Hor316 325 Mg Tab, 325 Mg Oral Twice A Day Active [facility] 06/24/2014 [facility] Lotrel , 20 Mg Oral Daily Active 06/23/2014 [facility] Plavix , 75 Mg Oral Daily Active 06/23/2014 [facility] Toprol , 100 Mg Oral Daily Active 06/23/2014 [facility] Xanax , 0.5 Mg Oral As Needed Active 06/23/2014 [facility] Lipitor 20 mg, 2 tab, Route: PO, Drug form: TAB, Bedtime, Start date: 07/22/11 21:00:00, Duration: 30 day, Stop date: 08/20/11 21:00:00 PO No Longer Active [facility] 07/23/2011 [facility] Nexium 40 mg, Route: PO, Drug form: DRC, Before Dinner, Start date: 07/22/11 16:30:00, Duration: 30 day, Stop date: 08/20/11 16:30:00 PO No Longer Active [facility] 07/22/2011 [facility] Protonix 40 mg, 1 tab, Route: PO, Drug form: ECTAB, Before Dinner, Start date: 07/22/11 16:30:00, Duration: 30 day, Stop date: 08/20/11 16:30:00 PO No Longer Active Katherine 07/22/2011 [facility] Plavix 75 mg, 1 tab, Route: PO, Drug form: TAB, Daily, Start date: 07/22/11 9:00:00, Duration: 30 day, Stop date: 08/20/11 9:00:00 PO No Longer Active Katherine 07/22/2011 [facility] aspirin 81 mg tablet, enteric coated 81 mg, 1 tab, Route: PO, Drug form: ECTAB, Daily, Start date: 07/22/11 9:00:00, Duration: 30 day, Stop date: 08/20/11 9:00:00 PO No Longer Active Katherine 07/22/2011 [facility] Lotrel 10 mg-20 mg oral capsule 1 cap, Route: PO, Drug Form: CAP, Daily, Start date: 07/22/11 9:00:00, Duration: 30 day, Stop date: 08/20/11 9:00:00 PO No Longer Active Katherine 07/22/2011 [facility] Saline Flush 0.9% 5 ml, Route: IVP, Drug Form: INJ, Q12H, Start date: 07/22/11 9:00:00, Duration: 30 day, Stop date: 08/20/11 21:00:00 IVP No Longer Active Katherine 07/22/2011 [facility] aspirin 325 mg tablet 325 mg, 1 tab, Route: PO, Drug form: TAB, Daily, Start date: 07/22/11 9:00:00, Duration: 30 day, Stop date: 08/20/11 9:00:00 PO No Longer Active Katherine 07/22/2011 [facility] Prinivil 20 mg, 1 tab, Route: PO, Drug form: TAB, Daily, Start date: 07/22/11 9:00:00, Duration: 30 day, Stop date: 08/20/11 9:00:00 PO No Longer Active Katherine 07/22/2011 [facility] Norvasc 10 mg, 2 tab, Route: PO, Drug form: TAB, Daily, Start date: 07/22/11 9:00:00, Duration: 30 day, Stop date: 08/20/11 9:00:00 PO No Longer Active Katherine 07/22/2011 [facility] nitroglycerin 2% ointment 0.5 inch, Route: TOP, Drug Form: OINT, TID, Start date: 07/22/11 6:00:00, Duration: 30 day, Stop date: 08/20/11 18:00:00 TOP No Longer Active Katherine 07/22/2011 [facility] Toprol-XL 100 mg oral tablet, extended release 100 mg, 1 tab, Route: PO, Drug form: ERTAB, Daily, Start date: 07/21/11 22:23:00, Duration: 30 day, Stop date: 08/20/11 9:00:00 PO No Longer Active Katherine 07/22/2011 [facility] Xanax 0.5 mg oral tablet 0.5 mg, 1 tab, Route: PO, Drug form: TAB, TID, PRN as needed for anxiety, Start date: 07/21/11 22:08:00, Duration: 30 day, Stop date: 08/20/11 22:07:00 PO No Longer Active Katherine 07/22/2011 [facility] nitroglycerin 0.4 mg sublingual tablet 0.4 mg, 1 tab, Route: SL, Drug form: TAB, Q5Min, PRN Chest Pain, Start date: 07/21/11 22:01:00, Duration: 30 day, Stop date: 08/20/11 22:00:00 SL No Longer Active Katherine 07/22/2011 [facility] atropine 0.5 mg, 5 mL, Route: IVP, Drug form: INJ, PRN, PRN Bradycardia, Start date: 07/21/11 22:00:00, Duration: 30 day, Stop date: 08/20/11 21:59:00 IVP No Longer Active Katherine 07/22/2011 [facility] Saline Flush 0.9% 5 ml, Route: IVP, Drug Form: INJ, PRN, PRN Line Flush, Start date: 07/21/11 21:41:00, Duration: 30 day, Stop date: 08/20/11 21:40:00 IVP No Longer Active Katherine 07/22/2011 [facility] nitroglycerin SL Tab 0.4 mg, 1 tab, Route: SL, Drug form: TAB, Q5Min, PRN Chest Pain, Start date: 07/21/11 21:41:00, Duration: 3 doses or times, Stop date: Limited # of times SL No Longer Active Katherine 07/22/2011 [facility] aspirin 325 mg tablet 325 mg, Route: PO, Drug form: TAB, ONCE, Priority: STAT, Start date: 07/21/11 21:07:00, Stop date: 07/21/11 21:07:00 PO No Longer Active [facility] 07/22/2011 [facility] amoxicillin 250 mg/5 mL oral liquid 1,556.825 mg, 31.137 mL, PO, TID, 654 mL, Substitution Allowed, PDR/REC PO No Longer Active Nriagu 07/22/2011 [facility] acetaminophen 120 mg/5 mL oral liquid 720 mg, 30 mL, PO, Q4H, 300 mL, Substitution Allowed PO No Longer Active [facility] 07/22/2011 [facility] ibuprofen 100 mg/5 mL oral suspension 622.73 mg, 31.137 mL, PO, Q6H, PRN, 300 mL, Fever, Substitution Allowed PO No Longer Active [facility] 07/22/2011 [facility] aspirin 325 mg tablet 325 mg, 1 tab, Route: PO, Drug form: TAB, ONCE, Priority: STAT, Start date: 07/21/11 18:36:00, Stop date: 07/21/11 18:36:00 PO No Longer Active [facility] 07/21/2011 [facility] Saline Flush 0.9% 5 ml, Route: IVP, Drug Form: INJ, PRN, PRN Line Flush, Start date: 07/21/11 18:36:00, Duration: 24 hr, Stop date: 07/22/11 18:35:00 IVP No Longer Active [facility] 07/21/2011 [facility] Ciprofloxacin HCl 1 tablet Orally Active 500 MG Orally Twice a day [facility] Flonase 1 spray in each nostril Nasally Active 50 MCG/ACT Nasally Once a day [facility] Amlodipine Besylate TAKE 1 TABLET BY MOUTH EVERY DAY NA Active 10 [facility] Xanax 1 tablet Orally Active 0.5 MG Orally Three times a day [facility] [place],[id number] Metoprolol Succinate ER TAKE 1 TABLET BY MOUTH EVERY DAY NA Active 100 [facility] Amlodipine Besylate 1 tablet Orally Active 10 mg Orally Once a day [facility],[id number] Aspirin 1 tablet Orally Active 81 MG Orally Once a day [facility] Tamsulosin HCl 1 capsule Orally Active 0.4 MG Orally Once a day [facility] Metoprolol Succinate ER 1 tablet Orally Active 100 mg Orally Once a day [facility],[id number] Xanax 1 tablet Orally Active 0.5 MG Orally bid [facility] Pantoprazole Sodium 1 tablet Orally Active 40 MG Orally Once a day [facility] [facility] Baclofen 1 tablet with food or milk Orally Active 10 MG Orally twice a day (bid) as needed (prn) [facility] Aspirin 1 tablet Orally Active 81 MG Orally Once a day [facility] Losartan Potassium 1 tablet Orally Active 50 MG Orally Once a day [facility] Metoprolol Succinate ER TAKE 1 TABLET BY MOUTH EVERY DAY po Active 100 po once daily [facility] Pantoprazole Sodium 1 tablet Orally Active 40 mg Orally Once a day [facility] Naproxen not defined NA Active [facility] Clopidogrel Bisulfate 1 tablet Orally Active 75 mg Orally Once a day [facility] [id number] Alprazolam (Xanax) 0.5 Mg Tablet as needed for Anxiety Active [facility] Amlodipine Besylate/Benazepril (Lotrel 5-20 Mg Capsule) 1 Each Capsule Daily Active [facility] Aspirin 325 Mg Tablet Daily [facility] Famotidine (Pepcid) 20 Mg Tablet Twice A Day [facility] Hydrocodone Bit/Acetaminophen ([place] 10-325 Tablet) 1 Each Tablet As Needed [facility] Metoprolol Succinate (Toprol Xl) 100 Mg Tab.er.24h Daily Active [facility] Allergies, Adverse Reactions, Alerts Substance Category Reaction Severity Reaction type Status Date Reported Comments Source N.K.D.A. Adverse Reaction Info Not Available Adverse Reaction Active 02/20/2018 [facility] Immunizations Immunization Date Given Site Status Last Updated Comments Source Influenza 02/02/2016 completed [facility] Results Order Name Results Value Reference Range Date Interpretation Comments Source CARDIAC ENZYMES Total CK 75 unit/L 12 - 191 01/06/2015 [facility] CARDIAC ENZYMES Troponin-I null 0.00 - 0.40 01/06/2015 [facility] CARDIAC ENZYMES CK MB 1.8 ng/mL 0.5 - 3.6 01/06/2015 [facility] CARDIAC ENZYMES CK MB Index 2.4 0.0 - 2.5 01/06/2015 [facility] URINE AND STOOL UA Urobilinogen <=1.0 mg/dL 0.1 - 1.0 01/06/2015 [facility] URINE AND STOOL UA Color Ltyellow 01/06/2015 [facility] URINE AND STOOL UA Bacteria Occasional /HPF None Seen /HPF 01/06/2015 [facility] URINE AND STOOL UA Sq Epi Occasional [...] Marked *ABN* (01/06/15 4:39 AM) Clear 01/06/2015 [facility] URINE AND STOOL UA pH 7.0 5.0 - 8.0 01/06/2015 [facility] URINE AND STOOL UA Protein Negative mg/dL Negative mg/dL 01/06/2015 [facility] CARDIAC ENZYMES BNP 117 pg/mL <=100 pg/mL 01/06/2015 [facility] CHEM PANEL Vitamin D, 25-OH, Total 18 ng/mL 30 - 100 01/06/2015 [facility] CHEM PANEL Uric Acid 5.4 mg/dL 3.8 - 8.0 01/06/2015 [facility] CHEM PANEL eGFR 76 mL/min/1.73m2 01/06/2015 Result [...] should be multiplied by the estimated BMI. [facility] CHEM PANEL Creatinine Lvl 1.0 mg/dL 0.5 - 1.4 01/06/2015 [facility] CHEM PANEL Glucose Lvl 102 mg/dL 70 - 99 01/06/2015 [facility] CHEM PANEL BUN 13 mg/dL 7 - 22 01/06/2015 [facility] CHEM PANEL CO2 30 meq/L 24 - 32 01/06/2015 [facility] CHEM PANEL Calcium Lvl 9.1 mg/dL 8.5 - 10.5 01/06/2015 [facility] CHEM PANEL Potassium Lvl 4.0 meq/L 3.5 - 5.1 01/06/2015 [facility] CHEM PANEL Chloride Lvl 104 meq/L 95 - 109 01/06/2015 [facility] CHEM PANEL Sodium Lvl 140 meq/L 135 - 145 01/06/2015 [facility] CHEM PANEL AGAP 10.0 meq/L 10.0 - 20.0 01/06/2015 [facility] CHEM PANEL Phosphorus 3.8 mg/dL 2.5 - 4.5 01/06/2015 [facility] CHEM PANEL Magnesium Lvl 2.1 mg/dL 1.8 - 2.4 01/06/2015 [facility] CHEM PANEL Bili Indirect 0.5 mg/dL 0.0 - 1.0 01/06/2015 [facility] CHEM PANEL Total Protein 7.1 g/dL 6.4 - 8.4 01/06/2015 [facility] CHEM PANEL Albumin Lvl 3.5 g/dL 3.5 - 5.0 01/06/2015 [facility] CHEM PANEL Globulin 3.6 g/dL 2.0 - 4.0 01/06/2015 [facility] CHEM PANEL A/G Ratio 1.0 0.7 - 1.6 01/06/2015 [facility] CHEM PANEL ALT 27 unit/L 0 - 65 01/06/2015 [facility] CHEM PANEL AST 18 unit/L 0 - 37 01/06/2015 [facility] CHEM PANEL Alk Phos 117 unit/L 39 - 136 01/06/2015 [facility] CHEM PANEL Bili Total 0.6 mg/dL 0.2 - 1.3 01/06/2015 [facility] CHEM PANEL Bili Direct 0.1 mg/dL 0.0 - 0.3 01/06/2015 [facility] HEMATOLOGY MPV 10.7 fL 7.4 - 10.4 01/06/2015 [facility] HEMATOLOGY Platelet 120 K/CMM 133 - 450 01/06/2015 [facility] HEMATOLOGY RBC 4.65 M/CMM 4.70 - 6.10 01/06/2015 [facility] HEMATOLOGY MCV 91.3 fL 80.0 - 94.0 01/06/2015 [facility] HEMATOLOGY Hct 42.4 % 42.0 - 54.0 01/06/2015 [facility] HEMATOLOGY Hgb 14.3 g/dL 14.0 - 18.0 01/06/2015 [facility] HEMATOLOGY MCH 30.8 pg 27.0 - 31.0 01/06/2015 [facility] HEMATOLOGY MCHC 33.7 g/dL 32.0 - 36.0 01/06/2015 [facility] HEMATOLOGY RDW 13.4 % 11.5 - 14.5 01/06/2015 [facility] HEMATOLOGY WBC 4.0 K/CMM 3.7 - 10.4 01/06/2015 [facility] HEMATOLOGY Eosinophils # 0.2 K/CMM 0.0 - 0.5 01/06/2015 [facility] HEMATOLOGY Lymphocytes # 1.2 K/CMM 1.0 - 5.5 01/06/2015 [facility] HEMATOLOGY Monocytes 11.0 % 2.0 - 12.0 01/06/2015 [facility] HEMATOLOGY Eosinophils 4.8 % 0.0 - 4.0 01/06/2015 [facility] HEMATOLOGY Basophils 0.5 % 0.0 - 1.0 01/06/2015 [facility] HEMATOLOGY Segs-Bands # 2.2 K/CMM 1.5 - 8.1 01/06/2015 [facility] HEMATOLOGY Lymphocytes 29.9 % 20.0 - 40.0 01/06/2015 [facility] HEMATOLOGY Segs 53.8 % 45.0 - 75.0 01/06/2015 [facility] HEMATOLOGY Monocytes # 0.4 K/CMM 0.0 - 0.8 01/06/2015 [facility] IMMUNOLOGY Homocyst Tot 10.2 umol/L 3.7 - 13.9 01/06/2015 [facility] LIPIDS CHD Risk 4.33 4.00 - 7.30 01/06/2015 [facility] LIPIDS VLDL 32 01/06/2015 [facility] LIPIDS LDL (Calculated) 121 mg/dL <=99 mg/dL 01/06/2015 [facility] LIPIDS HDL 46 mg/dL >=61 mg/dL 01/06/2015 [facility] LIPIDS Chol 199 mg/dL <=199 mg/dL 01/06/2015 [facility] LIPIDS Trig 159 mg/dL <=149 mg/dL 01/06/2015 [facility] THYROID PANEL T4 8.0 ug/dl 4.7 - 13.3 01/06/2015 [facility] THYROID PANEL TSH 1.130 uIU/mL 0.360 - 3.740 01/06/2015 [facility] THYROID PANEL T3 Uptake 40 % 31 - 39 01/06/2015 [facility] THYROID PANEL FTI 3.2 01/06/2015 [facility] CARDIAC ENZYMES CK MB 2.2 ng/mL 0.5 - 3.6 01/06/2015 [facility] CARDIAC ENZYMES CK MB Index 2.5 0.0 - 2.5 01/06/2015 [facility] CARDIAC ENZYMES Total CK 88 unit/L - 01/06/2015 [facility] CARDIAC ENZYMES Troponin-I null 0.00 - 0.40 01/06/2015 [facility] CARDIAC ENZYMES Troponin-I null 0.00 - 0.40 01/05/2015 [facility] CARDIAC ENZYMES CK MB 2.4 ng/mL 0.5 - 3.6 01/05/2015 [facility] CARDIAC ENZYMES Total CK 106 unit/L - 01/05/2015 [facility] CARDIAC ENZYMES CK MB Index 2.3 0.0 - 2.5 01/05/2015 [facility] CARDIAC ENZYMES Total CK 112 unit/L - 01/05/2015 [facility] CARDIAC ENZYMES CK MB Index 2.1 0.0 - 2.5 01/05/2015 [facility] CARDIAC ENZYMES CK MB 2.3 ng/mL 0.5 - 3.6 01/05/2015 [facility] CHEM PANEL Magnesium Lvl 2.2 mg/dL 1.8 - 2.4 01/05/2015 [facility] CHEM PANEL Phosphorus 3.1 mg/dL 2.5 - 4.5 01/05/2015 [facility] ELECTROLYTES Potassium Lvl 3.8 meq/L 3.5 - 5.1 01/05/2015 [facility] ELECTROLYTES Chloride Lvl 102 meq/L 95 - 109 01/05/2015 [facility] ELECTROLYTES Calcium Lvl 9.1 mg/dL 8.5 - 10.5 01/05/2015 [facility] ELECTROLYTES Sodium Lvl 139 meq/L 135 - 145 01/05/2015 [facility] ELECTROLYTES eGFR 68 mL/min/1.73m2 01/05/2015 Result Comment: [...] should be multiplied by the estimated BMI. [facility] ELECTROLYTES A/G Ratio 1.1 0.7 - 1.6 01/05/2015 [facility] ELECTROLYTES Globulin 3.8 g/dL 2.0 - 4.0 01/05/2015 [facility] ELECTROLYTES B/C Ratio 12 6 - 25 01/05/2015 [facility] ELECTROLYTES AGAP 9.8 meq/L 10.0 - 20.0 01/05/2015 [facility] ELECTROLYTES AST 20 unit/L 0 - 37 01/05/2015 [facility] ELECTROLYTES Albumin Lvl 4.1 g/dL 3.5 - 5.0 01/05/2015 [facility] ELECTROLYTES ALT 27 unit/L 0 - 65 01/05/2015 [facility] ELECTROLYTES Glucose Lvl 145 mg/dL 70 - 99 01/05/2015 [facility] ELECTROLYTES CO2 31 meq/L 24 - 32 01/05/2015 [facility] ELECTROLYTES Total Protein 7.9 g/dL 6.4 - 8.4 01/05/2015 [facility] ELECTROLYTES Alk Phos 136 unit/L 39 - 136 01/05/2015 [facility] ELECTROLYTES Bili Total 0.7 mg/dL 0.2 - 1.3 01/05/2015 [facility] ELECTROLYTES BUN 13 mg/dL 7 - 22 01/05/2015 [facility] ELECTROLYTES Creatinine Lvl 1.1 mg/dL 0.5 - 1.4 01/05/2015 [facility] HEMATOLOGY PTT 30.6 s 22.9 - 35.8 01/05/2015 [facility] HEMATOLOGY PT 13.6 s 12.0 - 14.7 01/05/2015 [facility] HEMATOLOGY INR 1.01 0.85 - 1.17 01/05/2015 [facility] HEMATOLOGY Platelet 134 K/CMM 133 - 450 01/05/2015 [facility] HEMATOLOGY MPV 10.0 fL 7.4 - 10.4 01/05/2015 [facility] HEMATOLOGY Hgb 15.3 g/dL 14.0 - 18.0 01/05/2015 [facility] HEMATOLOGY WBC 7.8 K/CMM 3.7 - 10.4 01/05/2015 [facility] HEMATOLOGY RBC 5.00 M/CMM 4.70 - 6.10 01/05/2015 [facility] HEMATOLOGY MCH 30.5 pg 27.0 - 31.0 01/05/2015 [facility] HEMATOLOGY MCV 91.5 fL 80.0 - 94.0 01/05/2015 [facility] HEMATOLOGY Hct 45.7 % 42.0 - 54.0 01/05/2015 [facility] HEMATOLOGY RDW 13.3 % 11.5 - 14.5 01/05/2015 [facility] HEMATOLOGY MCHC 33.4 g/dL 32.0 - 36.0 01/05/2015 [facility] HEMATOLOGY Segs 72.6 % 45.0 - 75.0 01/05/2015 [facility] HEMATOLOGY Basophils 0.8 % 0.0 - 1.0 01/05/2015 [facility] HEMATOLOGY Segs-Bands # 5.7 K/CMM 1.5 - 8.1 01/05/2015 [facility] HEMATOLOGY Lymphocytes 16.9 % 20.0 - 40.0 01/05/2015 [facility] HEMATOLOGY Monocytes 7.4 % 2.0 - 12.0 01/05/2015 [facility] HEMATOLOGY Eosinophils 2.3 % 0.0 - 4.0 01/05/2015 [facility] HEMATOLOGY Basophils # 0.1 K/CMM 0.0 - 0.2 01/05/2015 [facility] HEMATOLOGY Lymphocytes # 1.3 K/CMM 1.0 - 5.5 01/05/2015 [facility] HEMATOLOGY Monocytes # 0.6 K/CMM 0.0 - 0.8 01/05/2015 [facility] HEMATOLOGY Eosinophils # 0.2 K/CMM 0.0 - 0.5 01/05/2015 [facility] SPECIAL CHEMISTRY Hgb A1C 5.8 % <=5.6 % 01/05/2015 [facility] Chest 1view DX Chest 1view DX Examination: [...] Todd Tijerina MD 01/05/15 14:48 FINAL REPORT [facility] CK MB Index 1.6 0.0 - 2.5 07/22/2011 Normal [facility] CHEMISTRY CK MB 2.1 ng/mL 0.5 - 3.6 07/22/2011 Normal [facility] CHEMISTRY Troponin-I null 0.00 - 0.40 07/22/2011 Normal [facility] Total CK 135 U/L 12 - 191 07/22/2011 Normal [facility] CHEMISTRY Trig 169 mg/dL 0 - 200 07/22/2011 Normal [facility] CHEMISTRY Chol 182 mg/dL 120 - 200 07/22/2011 Normal [facility] CHEMISTRY HDL 36 mg/dL >=35 07/22/2011 Normal [facility] CHEMISTRY CHD Risk 5.06 4.00 - 7.30 07/22/2011 Normal [facility] CHEMISTRY LDL 112 mg/dL 0 - 129 07/22/2011 Normal [facility] CHEMISTRY Chloride Lvl 109 meq/L 95 - 109 07/22/2011 Normal [facility] CHEMISTRY Potassium Lvl 3.9 meq/L 3.5 - 5.1 07/22/2011 Normal [facility] CHEMISTRY Sodium Lvl 142 meq/L 135 - 145 07/22/2011 Normal [facility] CHEMISTRY Calcium Lvl 8.8 mg/dL 8.5 - 10.5 07/22/2011 Normal [facility] CHEMISTRY Creatinine Lvl 0.8 mg/dL 0.5 - 1.4 07/22/2011 Normal [facility] CHEMISTRY AGAP 14.9 meq/L 10.0 - 20.0 07/22/2011 Normal [facility] CHEMISTRY CO2 22 meq/L 24 - 32 07/22/2011 LOW [facility] CHEMISTRY BUN 16 mg/dL 7 - 22 07/22/2011 Normal [facility] CHEMISTRY Glucose Lvl 118 mg/dL 70 - 99 07/22/2011 [place] 1Interpretive Data: Adult reference range values reflect the clinical guidelinesof the [place] [employer]. [facility] HEMATOLOGY Monocytes # 0.3 K/CMM 0.0 - 0.8 07/22/2011 Normal [facility] HEMATOLOGY Basophils # 0.0 K/CMM 0.0 - 0.2 07/22/2011 Normal [facility] HEMATOLOGY Eosinophils # 0.2 K/CMM 0.0 - 0.5 07/22/2011 Normal [facility] HEMATOLOGY Eosinophils 4.2 % 0.0 - 4.0 07/22/2011 HI [facility] HEMATOLOGY Monocytes 8.4 % 2.0 - 12.0 07/22/2011 Normal [facility] HEMATOLOGY Segs-Bands # 2.6 K/CMM 1.5 - 8.1 07/22/2011 Normal [facility] HEMATOLOGY Basophils 0.4 % 0.0 - 1.0 07/22/2011 Normal [facility] HEMATOLOGY Lymphocytes # 0.9 K/CMM 1.0 - 5.5 07/22/2011 LOW [facility] HEMATOLOGY Lymphocytes 23.0 % 20.0 - 40.0 07/22/2011 Normal [facility] HEMATOLOGY Segs 64.0 % 45.0 - 75.0 07/22/2011 Normal [facility] HEMATOLOGY Hgb 13.7 g/dL 14.0 - 18.0 07/22/2011 [facility] HEMATOLOGY Hct 40.5 % 42.0 - 54.0 07/22/2011 [facility] HEMATOLOGY RBC 4.43 M/CMM 4.70 - 6.10 07/22/2011 [facility] HEMATOLOGY MCHC 33.9 g/dL 32.0 - 36.0 07/22/2011 Normal [facility] HEMATOLOGY MCH 31.0 pg 27.0 - 31.0 07/22/2011 Normal [facility] HEMATOLOGY MCV 91.5 fL 80.0 - 94.0 07/22/2011 Normal [facility] HEMATOLOGY WBC 4.0 K/CMM 3.7 - 10.4 07/22/2011 Normal [facility] HEMATOLOGY Platelet 122 K/CMM 133 - 450 07/22/2011 LOW [facility] HEMATOLOGY MPV 10.1 fL 7.4 - 10.4 07/22/2011 Normal [facility] HEMATOLOGY RDW 12.7 % 11.5 - 14.5 07/22/2011 Normal [facility] CHEMISTRY CK MB Index 1.4 0.0 - 2.5 07/22/2011 Normal [facility] CHEMISTRY CK MB 2.0 ng/mL 0.5 - 3.6 07/22/2011 Normal [facility] CHEMISTRY Troponin-I null 0.00 - 0.40 07/22/2011 Normal [facility] CHEMISTRY Total CK 144 U/L 12 - 191 07/22/2011 Normal [facility] CHEMISTRY Lipase Lvl 275 U/L 73 - 393 07/21/2011 Normal [facility] CHEMISTRY Troponin-I null 0.00 - 0.40 07/21/2011 Normal [facility] CHEMISTRY B/C Ratio 19 6 - 25 07/21/2011 Normal [facility] CHEMISTRY AGAP 13.1 meq/L 10.0 - 20.0 07/21/2011 Normal [facility] CHEMISTRY Albumin Lvl 4.1 g/dL 3.5 - 5.0 07/21/2011 Normal [facility] CHEMISTRY Calcium Lvl 9.0 mg/dL 8.5 - 10.5 07/21/2011 Normal [facility] CHEMISTRY CO2 24 meq/L 24 - 32 07/21/2011 Normal [facility] CHEMISTRY Chloride Lvl 110 meq/L 95 - 109 07/21/2011 HI [facility] CHEMISTRY Potassium Lvl 4.1 meq/L 3.5 - 5.1 07/21/2011 Normal [facility] CHEMISTRY Sodium Lvl 143 meq/L 135 - 145 07/21/2011 Normal [facility] CHEMISTRY BUN 21 mg/dL 7 - 22 07/21/2011 Normal [facility] CHEMISTRY Creatinine Lvl 1.1 mg/dL 0.5 - 1.4 07/21/2011 Normal [facility] CHEMISTRY Glucose Lvl 106 mg/dL 70 - 99 07/21/2011 [facility] 2Interpretive Data: Adult reference range values reflect the clinical guidelinesof the [place] [employer]. [facility] CHEMISTRY AST 21 U/L 0 - 37 07/21/2011 Normal [facility] CHEMISTRY Total Protein 7.6 g/dL 6.4 - 8.4 07/21/2011 Normal [facility] CHEMISTRY ALT 35 U/L 0 - 65 07/21/2011 Normal [facility] CHEMISTRY Globulin 3.5 g/dL 2.0 - 4.0 07/21/2011 Normal [facility] CHEMISTRY Bili Total 0.4 mg/dL 0.2 - 1.3 07/21/2011 Normal [facility] CHEMISTRY A/G Ratio 1.2 0.7 - 1.6 07/21/2011 Normal [facility] CHEMISTRY Alk Phos 109 U/L 39 - 136 07/21/2011 Normal [facility] CHEMISTRY BNP 58 pg/mL <=100 07/21/2011 Normal 3Interpretive Data: Elevated results are in line with increasing severity of congestive heart failure. Minor elevations between 100 and 300 may be seen with Myocardial Ischemia, Sodium retaining drug s, and compensated/treated heart failure. [facility] CHEMISTRY CK MB 1.9 ng/mL 0.5 - 3.6 07/21/2011 Normal [facility] CHEMISTRY Total CK 171 U/L 12 - 191 07/21/2011 Normal [facility] CHEMISTRY CK MB Index 1.1 0.0 - 2.5 07/21/2011 Normal [facility] HEMATOLOGY INR 1.03 0.85 - 1.17 07/21/2011 Normal 4Interpretive Data: RECOMMENDED RANGES FOR PROTIME INR: 2.0-3.0 for most medical and surgical thromboembolic states. 2.5-3.5 for artificial heart valves and recurrent embolism.INR SHOULD BE USED ONLY FOR PATIENTS ON STABLE ANTICOAGULANT THERAPY. [facility] HEMATOLOGY PTT 30.7 s 22.9 - 35.8 07/21/2011 Normal 5Interpretive Data: Heparin Therapeutic Range: 57 - 92 Seconds [facility] HEMATOLOGY PT 13.5 s 12.0 - 14.7 07/21/2011 Normal [facility] HEMATOLOGY MPV 9.9 fL 7.4 - 10.4 07/21/2011 Normal [facility] HEMATOLOGY Platelet 116 K/CMM 133 - 450 07/21/2011 LOW [facility] HEMATOLOGY RDW 12.5 % 11.5 - 14.5 07/21/2011 Normal [facility] HEMATOLOGY MCHC 33.9 g/dL 32.0 - 36.0 07/21/2011 Normal [facility] HEMATOLOGY MCH 31.0 pg 27.0 - 31.0 07/21/2011 Normal [facility] HEMATOLOGY MCV 91.6 fL 80.0 - 94.0 07/21/2011 Normal [facility] HEMATOLOGY Hct 38.1 % 42.0 - 54.0 07/21/2011 LOW [facility] Hgb 12.9 g/dL 14.0 - 18.0 07/21/2011 LOW [facility] HEMATOLOGY RBC 4.16 M/CMM 4.70 - 6.10 07/21/2011 LOW [facility] HEMATOLOGY WBC 4.0 K/CMM 3.7 - 10.4 07/21/2011 Normal [facility] HEMATOLOGY Basophils # 0.0 K/CMM 0.0 - 0.2 07/21/2011 Normal [facility] HEMATOLOGY Eosinophils # 0.2 K/CMM 0.0 - 0.5 07/21/2011 Normal [facility] HEMATOLOGY Monocytes # 0.5 K/CMM 0.0 - 0.8 07/21/2011 Normal [facility] HEMATOLOGY Lymphocytes # 1.1 K/CMM 1.0 - 5.5 07/21/2011 Normal [facility] HEMATOLOGY Segs-Bands # 2.2 K/CMM 1.5 - 8.1 07/21/2011 Normal [facility] HEMATOLOGY Basophils 0.5 % 0.0 - 1.0 07/21/2011 Normal [facility] HEMATOLOGY Eosinophils 4.4 % 0.0 - 4.0 07/21/2011 [facility] HEMATOLOGY Monocytes 11.5 % 2.0 - 12.0 07/21/2011 Normal [facility] HEMATOLOGY Lymphocytes 28.2 % 20.0 - 40.0 07/21/2011 Normal [facility] HEMATOLOGY Segs 55.4 % 45.0 - 75.0 07/21/2011 Normal [facility] Vital Signs Vital Sign Value Date Comments [...] 140 09/29/2015 Enayet Rahim Weight 140.6 04/20/2015 [id number] Height 62.1 04/20/2015 [id number] Temperature Oral (F) 97.3 F 04/20/2015 [id number] Heart Rate 73 04/20/2015 [id number] Diastolic (mm Hg) 83 04/20/2015 [id number] Systolic (mm Hg) 145 04/20/2015 [id number] Respitory Rate 18 01/06/2015 [facility] Systolic (mm Hg) 152 01/06/2015 [facility] Diastolic (mm Hg) 75 01/06/2015 [facility] Temperature Oral (F) 97.6 F 01/06/2015 [facility] Heart Rate 51 01/06/2015 [facility] Heart Rate 52 01/06/2015 [facility] Temperature Oral (F) 97.5 F 01/06/2015 [facility] Respitory Rate 16 01/06/2015 [facility] Systolic (mm Hg) 154 01/06/2015 [facility] Diastolic (mm Hg) 76 01/06/2015 [facility] Temperature Oral (F) 97.6 F 01/06/2015 [facility] Heart Rate 53 01/06/2015 [facility] Respitory Rate 16 01/06/2015 [facility] Systolic (mm Hg) 152 01/06/2015 [facility] Diastolic (mm Hg) 68 01/06/2015 [facility] Weight 60.455 01/05/2015 [facility] Height 157.48 cm 01/05/2015 [facility] BMI Calculated 24.38 01/05/2015 [facility] Diastolic (mm Hg) 70 07/23/2011 [facility] Respitory Rate 16 07/23/2011 [facility] Heart Rate 59 07/23/2011 [facility] Temperature Oral (F) 97.8 F 07/23/2011 [facility] Systolic (mm Hg) 155 07/23/2011 [facility] Diastolic (mm Hg) 69 07/22/2011 [facility] Respitory Rate 18 07/22/2011 [facility] Systolic (mm Hg) 132 07/22/2011 [facility] Temperature Oral (F) 98.0 F 07/22/2011 [facility] Heart Rate 57 07/22/2011 [facility] Systolic (mm Hg) 141 07/22/2011 [facility] Respitory Rate 18 07/22/2011 [facility] Heart Rate 56 07/22/2011 [facility] Temperature Oral (F) 97.7 F 07/22/2011 [facility] Diastolic (mm Hg) 69 07/22/2011 [facility] Weight 62.273 07/21/2011 [facility] Height 157.48 cm 07/21/2011 [facility] Encounters Location Location Details Encounter Type Encounter Number Reason For Visit Attending Provider ADM Date DC Date Status Source [facility] OU [id number] CHEST PAIN ETELVINA CALEROAN 07/21/2011 07/22/2011 Active [facility] Unknown [id number] 12/19/2014 12/19/2014 [facility] Unknown [id number] 12/19/2014 12/19/2014 [facility] Unknown [id number] 12/19/2014 12/19/2014 [facility] Unknown [id number] 12/19/2014 12/19/2014 [facility] Unknown [id number] 12/19/2014 12/19/2014 [id number] [facility] Unknown [id number] 12/19/2014 12/19/2014 [facility] Unknown [id number] 12/19/2014 12/19/2014 [facility] Unknown [id number] 12/19/2014 12/19/2014 [facility] Unknown [id number] 12/19/2014 12/19/2014 [facility] Unknown [id number] 12/19/2014 12/19/2014 [facility] Unknown [id number] 12/19/2014 12/19/2014 [facility] OBS Observation Patient [id number] Lavell Veras 01/05/2015 01/06/2015 [facility] Annual Physical [id number] 01/12/2015 01/12/2015 [facility] Annual Physical [id number] 01/12/2015 01/12/2015 [facility] Annual Physical [id number] 01/12/2015 01/12/2015 [facility] Annual Physical [id number] 01/12/2015 01/12/2015 [facility] Annual Physical [id number] 01/12/2015 01/12/2015 [id number] [facility] Annual Physical [id number] 01/12/2015 01/12/2015 [facility] Annual Physical [id number] 01/12/2015 01/12/2015 [facility] Annual Physical [id number] 01/12/2015 01/12/2015 [facility] Annual Physical [id number] 01/12/2015 01/12/2015 [facility] Annual Physical [id number] 01/12/2015 01/12/2015 [facility] Annual Physical [id number] 01/12/2015 01/12/2015 [facility] Unknown [id number] 01/20/2015 01/20/2015 [facility] Unknown [id number] 01/20/2015 01/20/2015 [facility] Unknown [id number] 01/20/2015 01/20/2015 [facility] Unknown [id number] 01/20/2015 01/20/2015 [facility] Unknown [id number] 01/20/2015 01/20/2015 [id number] [facility] Unknown [id number] 01/20/2015 01/20/2015 [facility] Unknown [id number] 01/20/2015 01/20/2015 [facility] Unknown [id number] 01/20/2015 01/20/2015 [facility] Unknown [id number] 01/20/2015 01/20/2015 [facility] Unknown [id number] 01/20/2015 01/20/2015 [facility] [id number] 01/20/2015 01/20/2015 [facility] refills [id number] 01/30/2015 01/30/2015 [facility] refills [id number] 01/30/2015 01/30/2015 [facility] refills [id number] 01/30/2015 01/30/2015 [facility] refills [id number] 01/30/2015 01/30/2015 [facility] refills [id number] 01/30/2015 01/30/2015 [id number] [facility] refills [id number] 01/30/2015 01/30/2015 [facility] refills [id number] 01/30/2015 01/30/2015 [facility] refills [id number] 01/30/2015 01/30/2015 [facility] refills [id number] 01/30/2015 01/30/2015 [facility] refills [id number] 01/30/2015 01/30/2015 [facility] refills [id number] 01/30/2015 01/30/2015 [facility] Unknown [id number] 03/08/2015 03/08/2015 [facility] Unknown [id number] 03/08/2015 03/08/2015 [facility] Unknown [id number] 03/08/2015 03/08/2015 [facility] Unknown [id number] 03/08/2015 03/08/2015 [facility] Unknown [id number] 03/08/2015 03/08/2015 [id number] [facility] Unknown [id number] 03/08/2015 03/08/2015 [facility] Unknown [id number] 03/08/2015 03/08/2015 [facility] Unknown [id number] 03/08/2015 03/08/2015 [facility] Unknown [id number] 03/08/2015 03/08/2015 [facility] Unknown [id number] 03/08/2015 03/08/2015 [facility] Unknown [id number] 03/08/2015 03/08/2015 [facility] Unknown [id number] 04/20/2015 04/20/2015 [facility] Unknown [id number] 04/20/2015 04/20/2015 [facility] Unknown [id number] 04/20/2015 04/20/2015 [facility] Unknown [id number] 04/20/2015 04/20/2015 [facility] Unknown [id number] 04/20/2015 04/20/2015 [id number] [facility] Unknown [id number] 04/20/2015 04/20/2015 [facility] Unknown [id number] 04/20/2015 04/20/2015 [facility] Unknown [id number] 04/20/2015 04/20/2015 [facility] Unknown [id number] 04/20/2015 04/20/2015 [facility] Unknown [id number] 04/20/2015 04/20/2015 [facility] Unknown [id number] 04/20/2015 04/20/2015 [facility] [id number] 09/29/2015 09/29/2015 [facility] Visit [id number] 09/29/2015 09/29/2015 [facility] Visit [id number] 09/29/2015 09/29/2015 [facility] Visit [id number] 09/29/2015 09/29/2015 [facility] Visit [id number] 09/29/2015 09/29/2015 [facility] Visit [id number] 09/29/2015 09/29/2015 [facility] Visit [id number] 09/29/2015 09/29/2015 [facility] [id number] 09/29/2015 09/29/2015 [facility] Visit [id number] 09/29/2015 09/29/2015 [facility] [id number] 09/29/2015 09/29/2015 [facility] Unknown [id number] 10/23/2015 10/23/2015 [facility] Unknown [id number] 10/23/2015 10/23/2015 [facility] Unknown [id number] 10/23/2015 10/23/2015 [facility] Unknown [id number] 10/23/2015 10/23/2015 [facility] Unknown [id number] 10/23/2015 10/23/2015 [facility] Unknown [id number] 10/23/2015 10/23/2015 [facility] Unknown [id number] 10/23/2015 10/23/2015 [facility] Unknown [id number] 10/23/2015 10/23/2015 [facility] Unknown [id number] 10/23/2015 10/23/2015 [facility] REFILLS [id number] 11/09/2015 11/09/2015 [facility] REFILLS [id number] 11/09/2015 11/09/2015 [facility] REFILLS [id number] 11/09/2015 11/09/2015 [facility] REFILLS [id number] 11/09/2015 11/09/2015 [facility] REFILLS [id number] 11/09/2015 11/09/2015 [facility] REFILLS [id number] 11/09/2015 11/09/2015 [facility] REFILLS [id number] 11/09/2015 11/09/2015 [facility] REFILLS [id number] 11/09/2015 11/09/2015 [facility] referral/DR. [facility] Only [id number] 12/21/2015 12/21/2015 [facility] referral/[facility]. [facility] Only [id number] 12/21/2015 12/21/2015 [facility] referral/[facility] Only [id number] 12/21/2015 12/21/2015 [facility] referral/[facility] Only [id number] 12/21/2015 12/21/2015 [facility] referral/[facility] Only [id number] 12/21/2015 12/21/2015 [facility] referral/[facility]. [facility] Only [id number] 12/21/2015 12/21/2015 [facility] referral/[facility] Only [id number] 12/21/2015 12/21/2015 [facility] S[facility] Visit [id number] 02/02/2016 02/02/2016 [facility] Visit [id number] 02/02/2016 02/02/2016 [facility] Visit [id number] 02/02/2016 02/02/2016 [facility] Visit [id number] 02/02/2016 02/02/2016 [facility] Visit [id number] 02/02/2016 02/02/2016 [facility] Visit [id number] 02/02/2016 02/02/2016 [facility] Visit [id number] 02/20/2016 02/20/2016 [facility] Visit [id number] 02/20/2016 02/20/2016 [facility] Visit [id number] 02/20/2016 02/20/2016 [facility] Visit [id number] 02/20/2016 02/20/2016 [facility] Visit [id number] 02/20/2016 02/20/2016 [facility] Unknown [id number] 03/27/2016 03/27/2016 [facility] Unknown [id number] 03/27/2016 03/27/2016 [facility] Unknown [id number] 03/27/2016 03/27/2016 [facility] Unknown [id number] 03/27/2016 03/27/2016 [facility] S[facility] Visit [id number] 04/09/2016 04/09/2016 [facility] Visit [id number] 04/09/2016 04/09/2016 [facility] Unknown [id number] 04/12/2016 04/12/2016 [facility] Unknown [id number] 04/12/2016 04/12/2016 [facility] Unknown [id number] 04/12/2016 04/12/2016 [facility] Sick Visit [id number] 04/22/2016 04/22/2016 [facility] Departed Emergency Room [id number] ROYAL LUIS MD 05/05/2018 05/05/2018 [facility] Procedures Procedure Code Date Perfomer Comments Source PTCA - Percutaneous transluminal coronary angioplasty [id number] 07/29/2012 [facility] CABG x 4 - Coronary artery bypass grafts x 4 [id number] 04/30/1999 [facility] Cervical and thoracic spine operations [id number] [facility] Hip joint implantation [id number] [facility]
[2018-08-08] MEDS ORDERED: ASPIRIN 81 MG CHEW TAB PO ONE (14:30)
[2018-08-08 14:53] LABS: BASOPHILS % 0.5 % (0.0-1.0); EOSINOPHILS # (AUTO) 0.2 (0.0-0.4); EOSINOPHILS % 2.5 % (0.0-6.0); HEMOGLOBIN 13.4 g/dL (14.0-18.0); LYMPHOCYTES % 11.8 % (18.0-39.1); MEAN CORPUSCULAR HEMOGLOBIN 29.8 pg (28-32); MEAN CORPUSCULAR HGB CONC 34.4 g/dL (31-35); MEAN CORPUSCULAR VOLUME 86.9 fL (81-99); MONOCYTES # (AUTO) 0.7 (0.2-0.8); MONOCYTES % 8.6 % (4.4-11.3); NEUTROPHILS # (AUTO) 6.6 (2.1-6.9); NEUTROPHILS % 76.4 % (38.7-80.0); PLATELET COUNT 167 x10e3/uL (140-360); RED BLOOD COUNT 4.49 x10e6/uL (4.3-5.7); RED CELL DISTRIBUTION WIDTH 13.1 % (11.7-14.4)
[2018-08-08 15:13] LABS: INR 0.93
[2018-08-08 15:14] LABS: PARTIAL THROMBOPLASTIN TIME 32.9 seconds (23.8-35.5)
[2018-08-08 15:20] LABS: ALANINE AMINOTRANSFERASE 18 IU/L (0-55); ALBUMIN 4.1 g/dL (3.5-5.0); ALBUMIN/GLOBULIN RATIO 1.1 (0.8-2.0); ALKALINE PHOSPHATASE 121 IU/L (40-150); ANION GAP 13.2 mmol/L (8-16); BLOOD UREA NITROGEN 19 mg/dL (7-26); BUN/CREATININE RATIO 16 (6-25); CARBON DIOXIDE 28 mmol/L (22-29); CHLORIDE 105 mmol/L (98-107); CREATINE KINASE 81 IU/L (30-200); CREATININE, SERUM 1.22 mg/dL (0.72-1.25); EST GLOMERULAR FILTRATION RATE 58 ML/MIN (60-); GLUCOSE 121 mg/dL (74-118); POTASSIUM 4.2 mmol/L (3.5-5.1); SODIUM 142 mmol/L (136-145)
--- NOTE | 2018-08-08 16:27 | Diagnostic Imaging Report ---
EXAMINATION: CHEST SINGLE (NOT PORTABLE) INDICATION: Chest pain COMPARISON: Chest x-ray 11/22/2007 FINDINGS: AP view TUBES and LINES: Median sternotomy wires and mediastinal clips. Coronary artery stent. LUNGS: Lungs are moderately inflated. Lungs are clear. There is no evidence of pneumonia or pulmonary edema. PLEURA: No pleural effusion or pneumothorax. HEART AND MEDIASTINUM: The cardiomediastinal silhouette is unremarkable. BONES AND SOFT TISSUES: No acute osseous lesion. Anterior cervical fusion plate. Soft tissues are unremarkable. UPPER ABDOMEN: No free air under the diaphragm. IMPRESSION: No acute thoracic abnormality. Signed by: Dr. Cuong Sorto M.D. on 08/08/2018 4:23 PM
--- NOTE | 2018-08-08 16:43 | NUR ---
amb to restroom
== END 2018-08-08 18:58 | disposition home or self-care (01) ==
LOC: ER 13:16
DX: R07.89 Other chest pain (principal); R05 Cough; J20.9 Acute bronchitis, unspecified; I10 Essential (primary) hypertension; I25.10 Atherosclerotic heart disease of native coronary artery without angina pectoris; E78.5 Hyperlipidemia, unspecified; Z95.5 Presence of coronary angioplasty implant and graft
CPT/HCPCS: 36415; 71045; 80053; 82550; 82553; 83880; 84484; 85025; 85610; 85730; 93005; 99284

== ENCOUNTER 2025-01-10 10:19 | Inpatient (IN) | payer MEDICARE ==
[~2025-01-10] VITALS: Ht 157.5 cm; Wt 61.7 kg
[2025-01-10] VITALS (9 sets, daily range): BP systolic 128–142; BP diastolic 71–91; PULSE 93–99; RESP 18–27; TEMP 97.5–98.7; O2SAT 97–100
[~2025-01-10 10:19] MED LIST changes: +ASPIRIN CHEW81 MG PO; +AZITHROMYCIN250 MG PO; +DEXAMETHASONE4 MG PO; +KLONOPIN1 MG PO; +LIPITOR10 MG PO; +LOSARTAN POTAS100 MG PO; +METOPROLOL TART50 MG PO; +MUCINEX DM ER1 EAC1 PO; +NORVASC10 MG PO; +PREDNISONE20 MG PO; +RENAGEL800 MG PO
[2025-01-10 10:54] LABS: BASOPHILS % 0.1 % (0.0-1.0); EOSINOPHILS % 0.0 % (0.0-6.0); LYMPHOCYTES % 3.1 % (18.0-39.1); MONOCYTES % 1.2 % (4.4-11.3); NEUTROPHILS % 95.3 % (38.7-80.0); RED CELL DISTRIBUTION WIDTH 15.9 % (11.7-14.4)
[2025-01-10 11:48] LABS: INR 1.1
[2025-01-10 11:59] LABS: EST GLOMERULAR FILTRATION RATE 57.0 ML/MIN (>=60)
[2025-01-10] MEDS ORDERED: ONDANSETRON HCL INJ 2MG/ML 2ML 2 MG/ML VIAL IV PRN (13:30)
[2025-01-10] MEDS: FUROSEMIDE INJ 10 MG/ML 4 ML VIAL IV SCH (13:45)
[2025-01-10] MEDS: METOPROLOL SUCCINATE 50 MG TAB XL PO SCH (13:45)
[2025-01-10] MEDS: FUROSEMIDE INJ 10 MG/ML 2 ML VIAL IV ONE (14:10)
[2025-01-10] MEDS ORDERED: FUROSEMIDE40 MG PO (17:46)
[2025-01-10] MEDS: SACUBITRIL/VALSARTAN 24MG/26MG 1 EA TAB PO SCH (17:48)
[2025-01-10] MEDS: TICAGRELOR 90 MG TABLET PO SCH (17:48)
[2025-01-10] MEDS ORDERED: ALBUTEROL2.5 MG/3 M IH (19:18)
[2025-01-10] MEDS: ALBUTEROL/IPRATROPIUM 3 ML NEB NEB PRN (20:17)
[2025-01-10] MEDS: FUROSEMIDE INJ 10 MG/ML 4 ML VIAL IV ONE (20:50)
[2025-01-10] MEDS: ATORVASTATIN 40 MG TAB PO SCH (20:50)
[2025-01-10] MEDS: CLONAZEPAM 1 MG TAB PO PRN (21:07)
[2025-01-11] VITALS (8 sets, daily range): BP systolic 124–141; BP diastolic 66–79; PULSE 76–102; RESP 17–22; TEMP 97.1–97.7; O2SAT 96–100
[2025-01-11] MEDS: FUROSEMIDE INJ 10 MG/ML 4 ML VIAL IV SCH (05:11)
[2025-01-11 07:06] LABS: BASOPHILS % 0.2 % (0.0-1.0); EOSINOPHILS % 0.3 % (0.0-6.0); LYMPHOCYTES % 12.8 % (18.0-39.1); MONOCYTES % 7.4 % (4.4-11.3); NEUTROPHILS % 79.0 % (38.7-80.0); RED CELL DISTRIBUTION WIDTH 15.8 % (11.7-14.4)
[2025-01-11 07:39] LABS: CHOL/HDL RATIO 2.5 (3.9-4.7); EST GLOMERULAR FILTRATION RATE 66.0 ML/MIN (>=60); LDL CHOLESTEROL 80.0 MG/DL (60-130)
[2025-01-11] MEDS ORDERED: ASPIRIN 81 MG CHEW TAB PO SCH (09:00)
[2025-01-11] MEDS ORDERED: CLOPIDOGREL BISULFATE 75 MG TAB PO SCH (09:00)
[2025-01-11] MEDS: ASPIRIN 81 MG ENTERIC COATED PO SCH (09:26)
[2025-01-12] VITALS: BP 145/63; PULSE 84; RESP 18; TEMP 98.1; O2SAT 100
[2025-01-12 04:00] VITALS: BP 141/70; PULSE 89; RESP 18; TEMP 97.4; O2SAT 100
[2025-01-12 06:13] VITALS: PULSE 73; RESP 20; O2SAT 97
[2025-01-12 06:13] LABS: EST GLOMERULAR FILTRATION RATE 71.0 ML/MIN (>=60)
[2025-01-12 06:36] LABS: PHOSPHORUS 3.5 MG/DL (2.3-4.7)
[2025-01-12 07:56] VITALS: BP 112/68; PULSE 86; RESP 18; TEMP 97.6; O2SAT 100
[2025-01-12] MEDS ORDERED: MAGNESIUM SULFATE 2GM/50ML IV ONE (08:00)
[2025-01-12] MEDS ORDERED: FUROSEMIDE40 MG PO (08:25)
[2025-01-12] MEDS: MAGNESIUM SULFATE 2GM/50ML 50 ML IV ONE (08:54)
[2025-01-12] MEDS: POTASSIUM CHLORIDE 10MEQ EA PO SCH (08:57)
[2025-01-12] MEDS: SODIUM CHLORIDE 0.9% 250ML 250 ML ONE (09:14)
[2025-01-12 09:17] VITALS: BP 112/68; PULSE 86; RESP 18; TEMP 97.6; O2SAT 100
== END 2025-01-12 11:20 | disposition home or self-care (01) | DRG 280 ==
LOC: ER 10:26 → ERHOLD 13:25 → MED/SURG2 15:09
PROVIDERS: ADMIT Internal Medicine; ATTEND Internal Medicine
DX: I13.0 Hypertensive heart and chronic kidney disease with heart failure and stage 1 through stage 4 chronic kidney disease, or unspecified chronic kidney disease (principal); I50.23 Acute on chronic systolic (congestive) heart failure; I21.A1 Myocardial infarction type 2; Z95.1 Presence of aortocoronary bypass graft; I25.10 Atherosclerotic heart disease of native coronary artery without angina pectoris; J44.9 Chronic obstructive pulmonary disease, unspecified; F41.9 Anxiety disorder, unspecified; F32.A Depression, unspecified; N18.9 Chronic kidney disease, unspecified; M54.9 Dorsalgia, unspecified; T44.5X6A Underdosing of predominantly beta-adrenoreceptor agonists, initial encounter; M19.90 Unspecified osteoarthritis, unspecified site; Z91.120 Patient's intentional underdosing of medication regimen due to financial hardship; Z79.02 Long term (current) use of antithrombotics/antiplatelets; Z79.82 Long term (current) use of aspirin; Z79.52 Long term (current) use of systemic steroids; Z79.51 Long term (current) use of inhaled steroids; Z95.5 Presence of coronary angioplasty implant and graft; I25.2 Old myocardial infarction; Z98.1 Arthrodesis status; Z88.5 Allergy status to narcotic agent; Z87.891 Personal history of nicotine dependence
CPT/HCPCS: 36415; 71045; 80048; 80053; 80061; 82550; 83735; 83880; 84100; 84484; 85025; 85379; 85610; 85730; 93005; 94640; 94799; 99284; J1938; J3475; J7050